=== PATIENT | male | born 1940 | race Caucasian/White ===

== ENCOUNTER → 2016-07-14 | Outpatient (CLI) | payer MEDICARE, BC ==
[2016-07-14 11:57] LABS: Anisocytosis Slight; Basophils % (A) 1 %; CH 32.1; Eosinophils # (A) 0.1 k/uL (0-0.7); Eosinophils % (A) 2 %; HCT 43.1 % (39.0-53.0); HDW 2.66; HGB 13.9 gm/dL (13.0-17.5); Luc % (Auto) 3; Lymphocytes # (A) 1.5 k/uL (1.0-4.8); Lymphocytes % (A) 39 %; MCH 31.5 pg (25.0-35.0); MCHC 32.2 g/dL (31.0-37.0); MCV 97.6 fL (80.0-100.0); Mean Platelet Volume 10.7; Monocytes # (A) 0.4 k/uL (0-1.0); Monocytes % (A) 10 %; Neutrophils # (A) 1.7 k/uL (1.3-7.7); Neutrophils % (A) 46 %; RBC 4.42 m/uL (4.30-5.90); RDW 16.1 % (11.5-15.5); WBC 3.7 k/uL (3.8-10.6); WBC (Perox) 3.62
[2016-07-14 12:35] LABS: Calcium 9.5 mg/dL (8.4-10.2); Magnesium 1.8 mg/dL (1.6-2.3); Phosphorous 4.2 mg/dL (2.5-4.5); Potassium 3.9 mmol/L (3.5-5.1); Uric Acid 8.5 mg/dL (3.5-8.5)
[2016-07-14 12:46] LABS: % Iron Saturation 29.6 % (20-50)
== END | disposition home or self-care (01) ==
LOC: LABWHC1 11:30
PROVIDERS: ATTEND Internal Medicine Nephrology
DX: N18.4 Chronic kidney disease, stage 4 (severe) (principal)
CPT/HCPCS: 36415; 80048; 82306; 82728; 83540; 83550; 83735; 83970; 84100; 84550; 85025

== ENCOUNTER → 2017-03-07 | Outpatient (CLI) | payer MEDICARE, BC ==
[2017-03-07 14:25] LABS: Anisocytosis Slight; Aty Lym Flag Slight; CH 32.9; CHCM 32.9; HCT 31.6 % (39.0-53.0); HDW 2.83; HGB 10.2 gm/dL (13.0-17.5); Large Platelets Flag Slight; MCH 32.6 pg (25.0-35.0); MCHC 32.4 g/dL (31.0-37.0); MCV 100.8 fL (80.0-100.0); Macrocytosis Slight; Mean Platelet Volume 11.7; RBC 3.13 m/uL (4.30-5.90); RDW 18.1 % (11.5-15.5); WBC 3.5 k/uL (3.8-10.6); WBC (Perox) 3.66
[2017-03-07 14:33] LABS: Appearance,Urine Clear (Clear); Bilirubin,Urine Negative (Negative); Glucose,Urine (UA) Trace (Negative); Ketones,Urine Negative (Negative); Leukocyte Esterase,Urine Negative (Negative); Mucus,Urine Rare /hpf; Nitrite,Urine Negative (Negative); Particle Count 541; Protein,Urine 2+ (Negative); RBC,Urine 2 /hpf (0-5); Specific Gravity,Urine 1.012 (1.001-1.035); Squamous Epithelial Cell,Urine 1 /hpf (0-4); UA Billing (MACRO vs. MICRO) MICRO; Urobilinogen,Urine <2.0 mg/dL (<2.0); WBC,Urine 1 /hpf (0-5)
[2017-03-07 14:41] LABS: Calcium 8.9 mg/dL (8.4-10.2); Magnesium 1.7 mg/dL (1.6-2.3); Phosphorous 3.2 mg/dL (2.5-4.5); Potassium 4.3 mmol/L (3.5-5.1); Uric Acid 8.9 mg/dL (3.5-8.5)
[2017-03-07 18:01] LABS: Add Differential Manual Differential
[2017-03-07 18:04] LABS: Manual Review Performed; Nucleated Red Blood Cells 0 /100 WBC (0-0); Polychromasia Present; Total Cells Counted 100
[2017-03-07 19:36] LABS: Iron Saturation 44.39 (15.00-50.00)
== END | disposition home or self-care (01) ==
LOC: LABWHC1 13:32
PROVIDERS: ATTEND Internal Medicine Nephrology
DX: E55.9 Vitamin D deficiency, unspecified (principal); E21.3 Hyperparathyroidism, unspecified; M10.9 Gout, unspecified; N39.0 Urinary tract infection, site not specified; D63.1 Anemia in chronic kidney disease; N18.4 Chronic kidney disease, stage 4 (severe)
CPT/HCPCS: 36415; 80048; 81001; 82306; 82728; 83540; 83550; 83735; 83970; 84100; 84550; 85025

== ENCOUNTER → 2017-06-28 | Outpatient (CLI) | payer MEDICARE, BC ==
[2017-06-28 11:57] LABS: Anisocytosis Slight; HCT 29.5 % (39.0-53.0); Hypochromasia Moderate; MCH 31.6 pg (25.0-35.0); MCHC 30.7 g/dL (31.0-37.0); Macrocytosis Moderate; Mean Platelet Volume 11.6; Platelet Count 115 k/uL (150-450); RBC 2.86 m/uL (4.30-5.90); RDW 18.1 % (11.5-15.5); WBC 4.1 k/uL (3.8-10.6)
[2017-06-28 11:58] LABS: Prothrombin Time 51.2 sec (9.0-12.0)
[2017-06-28 12:49] LABS: Albumin 3.2 g/dL (3.5-5.0); Calcium 9.7 mg/dL (8.4-10.2); Potassium 3.9 mmol/L (3.5-5.1); Total Bilirubin 0.6 mg/dL (0.2-1.3); Total Protein 7.6 g/dL (6.3-8.2)
[2017-06-28 13:15] LABS: Eosinophils # (M) 0.12 k/uL (0-0.7); Lymphocytes # (M) 1.35 k/uL (1.0-4.8); Monocytes # (M) 0.16 k/uL (0-1.0); Neutrophils # (M) 2.46 k/uL (1.3-7.7); Neutrophils % (M) 60 %; Nucleated Red Blood Cells 0 /100 WBC (0-0); Total Cells Counted 100
[2017-06-28 13:16] LABS: Large Platelets Present
[2017-06-28 13:25] LABS: INR 5.6 (<1.2)
== END | disposition home or self-care (01) ==
LOC: LABWHC1 10:53
PROVIDERS: ATTEND Internal Medicine
DX: R06.02 Shortness of breath (principal); I50.9 Heart failure, unspecified; N19 Unspecified kidney failure; Z51.81 Encounter for therapeutic drug level monitoring; Z79.01 Long term (current) use of anticoagulants
CPT/HCPCS: 36415; 80053; 83880; 85025; 85610; 99214

== ENCOUNTER → 2017-07-02 | Outpatient (CLI) | payer MEDICARE, BC ==
--- NOTE | 2017-07-02 13:29 | CT ---
EXAMINATION TYPE: CT chest wo con DATE OF EXAM: 07/02/2017 COMPARISON: 01/16/2016 low-dose CT HISTORY: Increased shortness of breath CT DLP: 755 mGycm, Automated exposure control for dose reduction was used. CONTRAST: None TECHNIQUE: Axial images were obtained at 1 mm thick sections at 10 mm intervals. This will limit po rtions of the examination which may not be visualized within the [id number]. Images were obtained in the prone and supine views. FINDINGS: Portion of the thyroid visualized is normal. No suspicious lung nodules or focal infiltrat es are present. There are multiple scattered enlarged pretracheal lymph nodes measuring 1.0 cm and 1.4 cm in diamete r. Additional shotty lymphadenopathy is present. The ascending aorta diameter at the level of the ozzie n pulmonary artery is 3.9 cm. The main pulmonary artery diameter at the bifurcation is 3.9 cm. Vascu lar calcification is within the aorta. Coronary artery calcification is present. Emphysematous changes are present. Limited CT sections are obtained through the upper abdomen. Abdomen is essentially unremarkable. IMPRESSIONS: 1. Scattered enlarged mediastinal lymph nodes, present previously and may be slightly progressive.
== END | disposition home or self-care (01) ==
LOC: RADCTMAIN 12:08
PROVIDERS: ATTEND Internal Medicine
DX: R59.1 Generalized enlarged lymph nodes (principal)
CPT/HCPCS: 71250

== ENCOUNTER → 2017-07-31 | Outpatient (CLI) | payer MEDICARE, BC ==
[2017-07-31 14:34] LABS: Anisocytosis Slight; HCT 26.9 % (39.0-53.0); HGB 8.2 gm/dL (13.0-17.5); Hypochromasia Moderate; MCH 30.8 pg (25.0-35.0); MCHC 30.4 g/dL (31.0-37.0); MCV 101.6 fL (80.0-100.0); Macrocytosis Moderate; Mean Platelet Volume 12.2; Platelet Count 82 k/uL (150-450); RBC 2.65 m/uL (4.30-5.90); RDW 19.2 % (11.5-15.5); WBC 3.3 k/uL (3.8-10.6)
[2017-07-31 14:42] LABS: Appearance,Urine Clear (Clear); Bacteria,Urine Rare /hpf; Bilirubin,Urine Negative (Negative); Blood,Urine Negative (Negative); Color,Urine Yellow; Glucose,Urine (UA) Trace (Negative); Ketones,Urine Negative (Negative); Leukocyte Esterase,Urine Negative (Negative); Mucus,Urine Rare /hpf; Nitrite,Urine Negative (Negative); PH, Urine 7.5 (5.0-8.0); Protein,Urine 2+ (Negative); RBC,Urine 1 /hpf (0-5); Specific Gravity,Urine 1.011 (1.001-1.035); Squamous Epithelial Cell,Urine 1 /hpf (0-4); Urobilinogen,Urine <2.0 mg/dL (<2.0); WBC,Urine <1 /hpf (0-5)
[2017-07-31 14:50] LABS: Phosphorus 3.6 mg/dL (2.5-4.5); Potassium 4.5 mmol/L (3.5-5.1); Uric Acid 6.8 mg/dL (3.5-8.5)
[2017-07-31 14:53] LABS: Creatinine,Urine Random 77.5 mg/dL
[2017-07-31 15:09] LABS: Lymphocytes # (M) 1.39 k/uL (1.0-4.8); Monocytes # (M) 0.23 k/uL (0-1.0); Neutrophils # (M) 1.58 k/uL (1.3-7.7); Neutrophils % (M) 48 %; Nucleated Red Blood Cells 0 /100 WBC (0-0); Polychromasia Present; Total Cells Counted 100
[2017-07-31 18:53] LABS: Vitamin D 25 Hydroxy 54.2 ng/mL (30.0-100.0)
[2017-07-31 18:56] LABS: Iron Saturation 10.57 (15.00-50.00)
== END | disposition home or self-care (01) ==
LOC: LABWHC1 13:40
PROVIDERS: ATTEND Internal Medicine Nephrology
DX: D64.9 Anemia, unspecified (principal); E55.9 Vitamin D deficiency, unspecified; E21.3 Hyperparathyroidism, unspecified; M10.9 Gout, unspecified; N39.0 Urinary tract infection, site not specified; N18.4 Chronic kidney disease, stage 4 (severe); R80.9 Proteinuria, unspecified
CPT/HCPCS: 36415; 80048; 81001; 82306; 82570; 82728; 83540; 83550; 83735; 83970; 84100; 84156; 84550; 85025

== ENCOUNTER → 2017-11-13 | Outpatient (CLI) | payer MEDICARE, BC ==
[2017-11-13 16:02] LABS: Appearance,Urine Cloudy (Clear); Bilirubin,Urine Negative (Negative); Blood,Urine Negative (Negative); Color,Urine Yellow; Glucose,Urine (UA) Negative (Negative); Ketones,Urine Negative (Negative); Leukocyte Esterase,Urine Large (Negative); Mucus,Urine Rare /hpf; Nitrite,Urine Negative (Negative); Protein,Urine 2+ (Negative); RBC,Urine 2 /hpf (0-5); Specific Gravity,Urine 1.012 (1.001-1.035); Squamous Epithelial Cell,Urine 1 /hpf (0-4); Urobilinogen,Urine <2.0 mg/dL (<2.0); WBC,Urine 157 /hpf (0-5)
[2017-11-13 16:11] LABS: Creatinine,Urine Random 67.7 mg/dL
[2017-11-13 16:15] LABS: Calcium 9.4 mg/dL (8.4-10.2); Magnesium 1.8 mg/dL (1.6-2.3); Phosphorus 4.4 mg/dL (2.5-4.5); Potassium 4.2 mmol/L (3.5-5.1); Uric Acid 6.4 mg/dL (3.5-8.5)
[2017-11-13 16:24] LABS: Anisocytosis Slight; HCT 24.8 % (39.0-53.0); HGB 7.9 gm/dL (13.0-17.5); Hypochromasia Moderate; MCH 32.4 pg (25.0-35.0); MCHC 31.6 g/dL (31.0-37.0); MCV 102.3 fL (80.0-100.0); Macrocytosis Moderate; Mean Platelet Volume 11.6; RBC 2.43 m/uL (4.30-5.90); RDW 19.4 % (11.5-15.5); WBC 2.7 k/uL (3.8-10.6)
[2017-11-13 16:28] LABS: Platelet Count 95 k/uL (150-450)
[2017-11-13 16:51] LABS: Eosinophils # (M) 0.11 k/uL (0-0.7); Lymphocytes # (M) 1.13 k/uL (1.0-4.8); Monocytes # (M) 0.08 k/uL (0-1.0); Neutrophils # (M) 1.38 k/uL (1.3-7.7); Neutrophils % (M) 51 %; Nucleated Red Blood Cells 0 /100 WBC (0-0); Total Cells Counted 100
[2017-11-13 16:52] LABS: Poikilocytosis (M) Present
[2017-11-14 00:36] LABS: Vitamin D 25 Hydroxy 61.7 ng/mL (30.0-100.0)
[2017-11-14 00:50] LABS: Iron Saturation 23.04 (15.00-50.00)
[2017-11-14 00:59] LABS: Parathyroid Hormone Intact 18.1 pg/mL (14.0-72.0)
== END | disposition home or self-care (01) ==
LOC: LABWHC1 14:39
PROVIDERS: ATTEND Internal Medicine Nephrology
DX: N18.4 Chronic kidney disease, stage 4 (severe) (principal); D64.9 Anemia, unspecified; E55.9 Vitamin D deficiency, unspecified; N25.81 Secondary hyperparathyroidism of renal origin; M10.9 Gout, unspecified; N39.0 Urinary tract infection, site not specified
CPT/HCPCS: 36415; 80048; 81001; 82306; 82570; 82728; 83540; 83550; 83735; 83970; 84100; 84156; 84550; 85025

== ENCOUNTER → 2018-04-03 | Outpatient (CLI) | payer MEDICARE, BC ==
[2018-04-03 16:34] LABS: Appearance,Urine Clear (Clear); Bacteria,Urine Rare /hpf; Bilirubin,Urine Negative (Negative); Blood,Urine Negative (Negative); Color,Urine Yellow; Glucose,Urine (UA) Negative (Negative); Ketones,Urine Negative (Negative); Leukocyte Esterase,Urine Negative (Negative); Nitrite,Urine Negative (Negative); Protein,Urine 1+ (Negative); RBC,Urine <1 /hpf (0-5); Specific Gravity,Urine 1.011 (1.001-1.035); Squamous Epithelial Cell,Urine <1 /hpf (0-4); Urobilinogen,Urine <2.0 mg/dL (<2.0); WBC,Urine <1 /hpf (0-5)
[2018-04-03 16:48] LABS: Calcium 10.1 mg/dL (8.4-10.2); Magnesium 1.4 mg/dL (1.6-2.3); Phosphorus 3.9 mg/dL (2.5-4.5); Uric Acid 11.6 mg/dL (3.5-8.5)
[2018-04-03 17:51] LABS: Anisocytosis Slight; Basophils % (A) 1 %; Eosinophils # (A) 0.1 k/uL (0-0.7); Eosinophils % (A) 3 %; Hypochromasia Marked; Lymphocytes # (A) 1.1 k/uL (1.0-4.8); Lymphocytes % (A) 34 %; MCH 31.3 pg (25.0-35.0); MCV 97.9 fL (80.0-100.0); Macrocytosis Slight; Mean Platelet Volume 13.6; Monocytes # (A) 0.3 k/uL (0-1.0); Monocytes % (A) 8 %; Neutrophils # (A) 1.7 k/uL (1.3-7.7); Neutrophils % (A) 52 %; Platelet Count 63 k/uL (150-450); RBC 2.86 m/uL (4.30-5.90); WBC 3.3 k/uL (3.8-10.6)
[2018-04-04 02:05] LABS: Parathyroid Hormone Intact 16.1 pg/mL (14.0-72.0)
[2018-04-04 02:42] LABS: Iron Saturation 15.45 (15.00-50.00)
[2018-04-04 02:50] LABS: Vitamin D 25 Hydroxy 58.4 ng/mL (30.0-100.0)
== END ==
LOC: LABWHC1 15:14
PROVIDERS: ATTEND Internal Medicine Nephrology
DX: E55.9 Vitamin D deficiency, unspecified (principal); E21.3 Hyperparathyroidism, unspecified; M10.9 Gout, unspecified; D63.1 Anemia in chronic kidney disease; N39.0 Urinary tract infection, site not specified; N18.4 Chronic kidney disease, stage 4 (severe)
CPT/HCPCS: 36415; 80048; 81001; 82306; 82728; 83540; 83550; 83735; 83970; 84100; 84550; 85025

== ENCOUNTER → 2018-04-18 | Outpatient (CLI) | payer MEDICARE, BC ==
[2018-04-19 02:51] LABS: Anion Gap 11.6 mmol/L (4.00-12.00); Calcium 9.8 mg/dL (8.7-10.3); Carbon Dioxide 21.4 mmol/L (21.6-31.8); Potassium 4.3 mmol/L (3.5-5.5)
== END | disposition home or self-care (01) ==
LOC: LABWHC1 15:39
PROVIDERS: ATTEND Internal Medicine Nephrology
DX: N18.4 Chronic kidney disease, stage 4 (severe) (principal)
CPT/HCPCS: 36415; 80048

== ENCOUNTER 2018-05-11 09:32 | Inpatient (IN) | payer MEDICARE, BC ==
[2018-05-11] MEDS ORDERED: SODIUM CHLORIDE 0.9% 1,000 ML IV STA (09:45)
[2018-05-11] MEDS ORDERED: ONDANSETRON 4 MG/2 ML VIAL IVP STA (09:54)
[2018-05-11] MEDS ORDERED: MORPHINE SULFATE 2 MG/ML SYRINGE IVP ONE (09:54)
[2018-05-11] MEDS ORDERED: PHENAZOPYRIDINE 200 MG TAB PO STA (10:19)
--- NOTE | 2018-05-11 10:22 | ED ---
General Adult HPI - General Chief complaint: Urogenital Stated complaint: UTI Time Seen by Provider: 05/11/18 09:36 Source: patient, RN notes reviewed Mode of arrival: ambulatory Limitations: no limitations - History of Present Illness Initial comments: This a 77-year-old male presents emergency Department with multiple complaints. Primary complaint is dysuria, penile pain. He states that it torres severely when he urinates. He generalized states that he feels weak, run down. He states that he is "dying". Patient does admit that he has chronic severe COPD, CHF, A. fib. Patient states that he has not been taking care of himself. Patient does have family member in the room states that he has been getting him straightened out. Patient has been taking his medications were regular. Patient doesn't that he is on blood thinners and states that he noticed that his stool has been dark. Patient denies any fever or chills. He denies any nausea, vomiting, chest pain or increase in shortness of breath from his normal baseline. - Related Data Home Medications Medication Instructions Recorded Confirmed ALPRAZolam [Xanax] 0.25 mg PO TID PRN 02/07/18 02/07/18 Albuterol Sulfate [Proair Hfa] 1 - 2 puff INHALATION RT-Q6H PRN 02/07/18 Aspirin EC [Ecotrin Low Dose] 81 mg PO DAILY 02/07/18 02/07/18 Atorvastatin [Lipitor] 80 mg PO HS 02/07/18 02/07/18 Budesonide/Formoterol Fumarate 2 puff INHALATION RT-BID PRN 02/07/18 02/07/18 [Symbicort 160-4.5 Mcg Inhaler] Cholecalciferol [Vitamin D3] 1,000 unit PO DAILY 02/07/18 02/07/18 Magnesium Oxide 400 mg PO BID 02/07/18 02/10/18 Omeprazole 20 mg PO DAILY 02/07/18 02/07/18 Tamsulosin [Flomax] 0.4 mg PO DAILY 02/07/18 02/07/18 Previous Rx's Medication Instructions Recorded Insulin Aspart Protam & Aspart 10 unit SQ AC-BID #1 pen 02/11/18 [NovoLOG MIX 70-30 Flexpen] Ipratropium-Albuterol Nebulize 3 ml INHALATION RT-QID ampul.neb 02/11/18 [Duoneb 0.5 mg-3 mg/3 ml Soln] Nitroglycerin Sl Tabs [Nitrostat] 0.4 mg SUBLINGUAL Q5M PRN tab 02/11/18 ALPRAZolam [Xanax] 0.25 mg PO TID 30 Days #90 tab 02/21/18 Amoxic-Pot Clav 875-125Mg 1 each PO Q12HR tab 02/21/18 [Augmentin 875-125] Carvedilol [Coreg*] 25 mg PO BID-W/MEALS tab 02/21/18 Darbepoetin Hans [Aranesp] 60 mcg SQ Q7D #0 syringe 02/21/18 Furosemide [Lasix] 20 mg PO DAILY tab 02/21/18 NIFEdipine XL [Procardia XL] 30 mg PO DAILY tab.er.24 02/21/18 Sodium Bicarbonate Tab 650 mg PO BID tab 02/21/18 Warfarin Sodium [Coumadin] 3 mg PO DAILY #30 tab 02/21/18 Allergies Allergy/AdvReac Type Severity Reaction Status Date / Time No Known Allergies Allergy Verified 05/11/18 09:40 Review of Systems ROS Statement: Those systems with pertinent positive or pertinent negative responses have been documented in the HPI. ROS Other: All systems not noted in ROS Statement are negative. Past Medical History Past Medical History: Heart Failure Additional Past Medical History / Comment(s): emphysema, low hgb Last Myocardial Infarction Date:: 2009 History of Any Multi-Drug Resistant Organisms: VRE Date of last positivie culture/infection: 06/29/16 MDRO Source:: Urine Past Surgical History: Heart Catheterization With Stent Additional Past Surgical History / Comment(s): aortic anuersym repair, left foot toe removal, 4 cardiac stents. Past Anesthesia/Blood Transfusion Reactions: No Reported Reaction Date of Last Stent Placement:: unk Past Psychological History: No Psychological Hx Reported Smoking Status: Former smoker Past Alcohol Use History: Occasional Past Drug Use History: None Reported - Past Family History Mother Additional Family Medical History / Comment(s): brain tumor Father Family Medical History: CVA/TIA General Exam Limitations: no limitations General appearance: alert, in no apparent distress Head exam: Present: atraumatic, normocephalic, normal inspection ENT exam: Present: normal exam, normal oropharynx, mucous membranes moist Neck exam: Present: normal inspection, full ROM. Absent: tenderness, meningismus, lymphadenopathy Respiratory exam: Present: normal lung sounds bilaterally. Absent: respiratory distress, wheezes, rales, rhonchi, stridor Cardiovascular Exam: Present: irregular rhythm, normal heart sounds. Absent: regular rate, normal rhythm, systolic murmur, diastolic murmur, rubs, gallop, clicks GI/Abdominal exam: Present: soft, normal bowel sounds. Absent: distended, tenderness, guarding, rebound, rigid Back exam: Absent: CVA tenderness (R), CVA tenderness (L) Skin exam: Present: warm, dry, intact, normal color. Absent: rash Course Vital Signs 05/11/18 09:34 Temperature 97.6 F Pulse Rate 94 Respiratory 22 Rate Blood Pressure 168/76 O2 Sat by Pulse 93 L Oximetry EKG Findings - EKG Comments: EKG Findings:: EKG performed at 11:30 A. fib with a rate of 84 QRS 110 QT/QTC 382/451 Medical Decision Making - Medical Decision Making 77-year-old male present emergency from for multiple complaints. Patient's found to be urinary tract infection, dehydration worsening renal function. Patient is: hypercoaguable with INR 4.4 on Coumadin. Patient's Hemoccult positive. Patient will be admitted for IV hydration, holding her Coumadin, repeat H&H and started on antibiotics. - Lab Data Result diagrams: 05/11/18 10:16 05/11/18 10:16 Lab Results 05/11/18 05/11/18 05/11/18 Range/Units 10:16 10:16 10:16 WBC 3.8 (3.8-10.6) k/uL RBC 3.07 L (4.30-5.90) m/uL Hgb 8.8 L (13.0-17.5) gm/dL Hct 28.4 L (39.0-53.0) % MCV 92.4 D (80.0-100.0) fL MCH 28.7 (25.0-35.0) pg MCHC 31.0 (31.0-37.0) g/dL RDW 18.3 H (11.5-15.5) % Plt Count 132 L D (150-450) k/uL Neutrophils % (Manual) 70 % Lymphocytes % (Manual) 15 % Monocytes % (Manual) 12 % Eosinophils % (Manual) 3 % Neutrophils # (Manual) 2.66 (1.3-7.7) k/uL Lymphocytes # (Manual) 0.57 L (1.0-4.8) k/uL Monocytes # (Manual) 0.46 (0-1.0) k/uL Eosinophils # (Manual) 0.11 (0-0.7) k/uL Nucleated RBCs 0 (0-0) /100 WBC Manual Slide Review Performed Hypochromasia Marked Anisocytosis Slight PT (9.0-12.0) sec INR (<1.2) APTT (22.0-30.0) sec Sodium 140 (137-145) mmol/L Potassium 4.5 (3.5-5.1) mmol/L Chloride 106 (98-107) mmol/L Carbon Dioxide 22 (22-30) mmol/L Anion Gap 12 mmol/L BUN 63 H (9-20) mg/dL Creatinine 3.71 H (0.66-1.25) mg/dL Est GFR (CKD-EPI)AfAm 17 (>60 ml/min/1.73 sqM) Est GFR (CKD-EPI)NonAf 15 (>60 ml/min/1.73 sqM) Glucose 80 (74-99) mg/dL Plasma Lactic Acid [place] 1.5 (0.7-2.0) mmol/L Calcium 13.3 H* (8.4-10.2) mg/dL Total Bilirubin 0.7 (0.2-1.3) mg/dL AST 41 (17-59) U/L ALT 18 L (21-72) U/L Alkaline Phosphatase 151 H (38-126) U/L Total Protein 8.4 H (6.3-8.2) g/dL Albumin 2.9 L (3.5-5.0) g/dL Lipase 589 H (23-300) U/L Urine Color Urine Appearance (Clear) Urine pH (5.0-8.0) Ur Specific [place] (1.001-1.035) Urine Protein (Negative) Urine Glucose (UA) (Negative) Urine Ketones (Negative) Urine Blood (Negative) Urine Nitrite (Negative) Urine Bilirubin (Negative) Urine Urobilinogen (<2.0) mg/dL Ur Leukocyte Esterase (Negative) Urine RBC (0-5) /hpf Urine WBC (0-5) /hpf Urine WBC Clumps (None) /hpf Ur Squamous Epith Cells (0-4) /hpf Urine Bacteria (None) /hpf Hyaline Casts (0-2) /lpf Stool Occult Blood (Negative) 05/11/18 05/11/18 05/11/18 Range/Units 10:16 10:16 10:29 WBC (3.8-10.6) k/uL RBC (4.30-5.90) m/uL Hgb (13.0-17.5) gm/dL Hct (39.0-53.0) % MCV (80.0-100.0) fL MCH (25.0-35.0) pg MCHC (31.0-37.0) g/dL RDW (11.5-15.5) % Plt Count (150-450) k/uL Neutrophils % (Manual) % Lymphocytes % (Manual) % Monocytes % (Manual) % Eosinophils % (Manual) % Neutrophils # (Manual) (1.3-7.7) k/uL Lymphocytes # (Manual) (1.0-4.8) k/uL Monocytes # (Manual) (0-1.0) k/uL Eosinophils # (Manual) (0-0.7) k/uL Nucleated RBCs (0-0) /100 WBC Manual Slide Review Hypochromasia Anisocytosis PT 43.6 H (9.0-12.0) sec INR 4.8 H (<1.2) APTT 43.3 H (22.0-30.0) sec Sodium (137-145) mmol/L Potassium (3.5-5.1) mmol/L Chloride (98-107) mmol/L Carbon Dioxide (22-30) mmol/L Anion Gap mmol/L BUN (9-20) mg/dL Creatinine (0.66-1.25) mg/dL Est GFR (CKD-EPI)AfAm (>60 ml/min/1.73 sqM) Est GFR (CKD-EPI)NonAf (>60 ml/min/1.73 sqM) Glucose (74-99) mg/dL Plasma Lactic Acid [place] (0.7-2.0) mmol/L Calcium (8.4-10.2) mg/dL Total Bilirubin (0.2-1.3) mg/dL AST (17-59) U/L ALT (21-72) U/L Alkaline Phosphatase (38-126) U/L Total Protein (6.3-8.2) g/dL Albumin (3.5-5.0) g/dL Lipase (23-300) U/L Urine Color Yellow Urine Appearance Cloudy (Clear) Urine pH 6.0 (5.0-8.0) Ur Specific [place] 1.011 (1.001-1.035) Urine Protein 1+ H (Negative) Urine Glucose (UA) Negative (Negative) Urine Ketones Negative (Negative) Urine Blood Trace H (Negative) Urine Nitrite Negative (Negative) Urine Bilirubin Negative (Negative) Urine Urobilinogen <2.0 (<2.0) mg/dL Ur Leukocyte Esterase Large H (Negative) Urine RBC 7 H (0-5) /hpf Urine WBC >182 H (0-5) /hpf Urine WBC Clumps Moderate H (None) /hpf Ur Squamous Epith Cells <1 (0-4) /hpf Urine Bacteria Few H (None) /hpf Hyaline Casts 1 (0-2) /lpf Stool Occult Blood Positive (Negative) Disposition Clinical Impression: Anemia, Acute on chronic renal failure, Dehydration, Urinary tract infection, Hypercalcemia Disposition: ADMITTED IP TO THIS [facility] Condition: Fair Referrals: Chance Zuñiga MD [Primary Care Provider] - 1-2 days
--- NOTE | 2018-05-11 10:48 | XR ---
EXAMINATION TYPE: XR chest 2V DATE OF EXAM: 05/11/2018 HISTORY: Cough/pain. REFERENCE: Previous study dated 02/20/2018. FINDINGS: Lungs are overinflated. Heart size upper limits of normal. There are increased interstitial markings which are chronic. Pleural spaces are clear. IMPRESSION: 1. PLEASE CORRELATE FOR COPD. 2. BORDERLINE CARDIOMEGALY.
[2018-05-11 10:52] LABS: Albumin 2.9 g/dL (3.5-5.0); Potassium 4.5 mmol/L (3.5-5.1); Total Bilirubin 0.7 mg/dL (0.2-1.3); Total Protein 8.4 g/dL (6.3-8.2)
[2018-05-11 10:53] LABS: Anisocytosis Slight; HCT 28.4 % (39.0-53.0); Hypochromasia Marked; MCH 28.7 pg (25.0-35.0); Mean Platelet Volume 10.3; RBC 3.07 m/uL (4.30-5.90); RDW 18.3 % (11.5-15.5); WBC 3.8 k/uL (3.8-10.6)
[2018-05-11 10:55] LABS: Platelet Count 132 k/uL (150-450)
[2018-05-11 10:56] LABS: HGB 8.8 gm/dL (13.0-17.5); INR 4.8 (<1.2); Partial Thromboplastin Time 43.3 sec (22.0-30.0); Prothrombin Time 43.6 sec (9.0-12.0)
[2018-05-11 10:57] LABS: Calcium 13.3 mg/dL (8.4-10.2)
[2018-05-11 11:00] LABS: Appearance,Urine Cloudy (Clear); Bacteria,Urine Few /hpf; Bilirubin,Urine Negative (Negative); Blood,Urine Trace (Negative); Color,Urine Yellow; Glucose,Urine (UA) Negative (Negative); Hyaline Casts,Urine 1 /lpf (0-2); Ketones,Urine Negative (Negative); Leukocyte Esterase,Urine Large (Negative); Nitrite,Urine Negative (Negative); Protein,Urine 1+ (Negative); RBC,Urine 7 /hpf (0-5); Specific Gravity,Urine 1.011 (1.001-1.035); Squamous Epithelial Cell,Urine <1 /hpf (0-4); Urobilinogen,Urine <2.0 mg/dL (<2.0); WBC,Urine >182 /hpf (0-5)
[2018-05-11 11:27] LABS: Eosinophils # (M) 0.11 k/uL (0-0.7); Lymphocytes # (M) 0.57 k/uL (1.0-4.8); Monocytes # (M) 0.46 k/uL (0-1.0); Neutrophils # (M) 2.66 k/uL (1.3-7.7); Neutrophils % (M) 70 %; Nucleated Red Blood Cells 0 /100 WBC (0-0); Total Cells Counted 100
[2018-05-11] MEDS ORDERED: NALOXONE 0.4 MG/ML 1 ML VIAL IV PRN (11:45)
[2018-05-11] MEDS ORDERED: ONDANSETRON 4 MG/2 ML VIAL IVP PRN (11:45)
[2018-05-11] MEDS ORDERED: ACETAMINOPHEN TAB 325 MG TAB PO PRN (11:45)
[2018-05-11] MEDS ORDERED: PANTOPRAZOLE 40 MG/10 ML VIAL IVP STA (11:47)
[2018-05-11 14:38] LABS: MCV 92.4 fL (80.0-100.0)
[2018-05-11] MEDS: IPRATROPIUM-ALBUTEROL 3 ML NEB INHALATION SCH ×3 (14:49→19:05)
[2018-05-11] MEDS: SODIUM CHLORIDE 0.9% 1,000 ML IV SCH (14:49)
[2018-05-11] MEDS: MORPHINE SULFATE 4 MG/ML SYRINGE IV PRN (14:57)
--- NOTE | 2018-05-11 16:01 | P.HPIM ---
History of Present Illness H&P Date: 05/11/18 (Dr. Zuñiga patient) Chief Complaint: Severe pain in his penis, dysuria. History and physical dictated on the phone #[phone]. Medications reviewed and a constellation done. Was holding vitamin D and calcium supplementation, obtaining PTH intact because of his hypercalcemia with a calcium 13, associated with dehydration. Further diagnostic criteria on the dictation. Dr. Zuñiga will follow the patient tomorrow. Past Medical History Past Medical History: Heart Failure, Pneumonia Additional Past Medical History / Comment(s): emphysema, low hgb Last Myocardial Infarction Date:: 2009 History of Any Multi-Drug Resistant Organisms: VRE Date of last positivie culture/infection: 06/29/16 MDRO Source:: Urine Past Surgical History: Heart Catheterization With Stent Additional Past Surgical History / Comment(s): aortic anuersym repair, left foot toe removal, 4 cardiac stents. Past Anesthesia/Blood Transfusion Reactions: No Reported Reaction Date of Last Stent Placement:: unk Past Psychological History: No Psychological Hx Reported Additional Psychological History / Comment(s): sister living with pt, planning to move out 05/14/18. friend gee valladares comes in several times a day for meals and care. has home 02 and nebulizer Smoking Status: Former smoker Past Alcohol Use History: Occasional Additional Past Alcohol Use History / Comment(s): started smoking 1961 and quit 2014 smoked 1 ppd Past Drug Use History: None Reported - Past Family History Mother Additional Family Medical History / Comment(s): brain tumor Father Family Medical History: CVA/TIA Medications and Allergies Home Medications Medication Instructions Recorded Confirmed Type ALPRAZolam [Xanax] 0.25 mg PO TID PRN 02/07/18 02/07/18 History Albuterol Sulfate [Proair Hfa] 1 - 2 puff INHALATION RT-Q6H PRN 02/07/18 History Aspirin EC [Ecotrin Low Dose] 81 mg PO DAILY 02/07/18 02/07/18 History Atorvastatin [Lipitor] 80 mg PO HS 02/07/18 02/07/18 History Budesonide/Formoterol Fumarate 2 puff INHALATION RT-BID PRN 02/07/18 02/07/18 History [Symbicort 160-4.5 Mcg Inhaler] Cholecalciferol [Vitamin D3] 1,000 unit PO DAILY 02/07/18 02/07/18 History Magnesium Oxide 400 mg PO BID 02/07/18 02/10/18 History Omeprazole 20 mg PO DAILY 02/07/18 02/07/18 History Tamsulosin [Flomax] 0.4 mg PO DAILY 02/07/18 02/07/18 History Insulin Aspart Protam & Aspart 10 unit SQ AC-BID #1 pen 02/11/18 Rx [NovoLOG MIX 70-30 Flexpen] Ipratropium-Albuterol Nebulize 3 ml INHALATION RT-QID ampul.neb 02/11/18 Rx [Duoneb 0.5 mg-3 mg/3 ml Soln] Nitroglycerin Sl Tabs [Nitrostat] 0.4 mg SUBLINGUAL Q5M PRN tab 02/11/18 Rx ALPRAZolam [Xanax] 0.25 mg PO TID 30 Days #90 tab 02/21/18 Rx Amoxic-Pot Clav 875-125Mg 1 each PO Q12HR tab 02/21/18 Rx [Augmentin 875-125] Carvedilol [Coreg*] 25 mg PO BID-W/MEALS tab 02/21/18 Rx Darbepoetin Hans [Aranesp] 60 mcg SQ Q7D #0 syringe 02/21/18 Rx Furosemide [Lasix] 20 mg PO DAILY tab 02/21/18 Rx NIFEdipine XL [Procardia XL] 30 mg PO DAILY tab.er.24 02/21/18 Rx Sodium Bicarbonate Tab 650 mg PO BID tab 02/21/18 Rx Warfarin Sodium [Coumadin] 3 mg PO DAILY #30 tab 02/21/18 Rx Allergies Allergy/AdvReac Type Severity Reaction Status Date / Time No Known Allergies Allergy Verified 05/11/18 14:48 Physical Exam Vitals: Vital Signs Temp Pulse Pulse Resp BP BP Pulse Ox 05/11/18 14:53 97.0 F L 91 18 138/69 94 L 05/11/18 14:49 84 05/11/18 14:00 97.7 F 94 18 141/67 98 05/11/18 12:30 89 18 163/66 95 05/11/18 11:30 81 22 151/67 100 05/11/18 11:00 78 20 154/70 100 05/11/18 09:34 97.6 F 94 22 168/76 93 L Intake and Output 05/11/18 05/11/18 05/11/18 06:59 14:59 22:59 Output Total 200 Balance -200 Output: Urine 200 Straight 200 Other: Voiding Method Diaper # Voids 0 Weight 68.039 kg Results CBC & Chem 7: 05/11/18 10:16 05/11/18 10:16 Labs: Abnormal Lab Results - Last 24 Hours (Table) 05/11/18 05/11/18 05/11/18 Range/Units 10:16 10:16 10:16 RBC 3.07 L (4.30-5.90) m/uL Hgb 8.8 L (13.0-17.5) gm/dL Hct 28.4 L (39.0-53.0) % RDW 18.3 H (11.5-15.5) % Plt Count 132 L D (150-450) k/uL Lymphocytes # (Manual) 0.57 L (1.0-4.8) k/uL PT 43.6 H (9.0-12.0) sec INR 4.8 H (<1.2) APTT 43.3 H (22.0-30.0) sec BUN 63 H (9-20) mg/dL Creatinine 3.71 H (0.66-1.25) mg/dL Calcium 13.3 H* (8.4-10.2) mg/dL ALT 18 L (21-72) U/L Alkaline Phosphatase 151 H (38-126) U/L Total Protein 8.4 H (6.3-8.2) g/dL Albumin 2.9 L (3.5-5.0) g/dL Lipase 589 H (23-300) U/L Urine Protein (Negative) Urine Blood (Negative) Ur Leukocyte Esterase (Negative) Urine RBC (0-5) /hpf Urine WBC (0-5) /hpf Urine WBC Clumps (None) /hpf Urine Bacteria (None) /hpf 05/11/18 Range/Units 10:29 RBC (4.30-5.90) m/uL Hgb (13.0-17.5) gm/dL Hct (39.0-53.0) % RDW (11.5-15.5) % Plt Count (150-450) k/uL Lymphocytes # (Manual) (1.0-4.8) k/uL PT (9.0-12.0) sec INR (<1.2) APTT (22.0-30.0) sec BUN (9-20) mg/dL Creatinine (0.66-1.25) mg/dL Calcium (8.4-10.2) mg/dL ALT (21-72) U/L Alkaline Phosphatase (38-126) U/L Total Protein (6.3-8.2) g/dL Albumin (3.5-5.0) g/dL Lipase (23-300) U/L Urine Protein 1+ H (Negative) Urine Blood Trace H (Negative) Ur Leukocyte Esterase Large H (Negative) Urine RBC 7 H (0-5) /hpf Urine WBC >182 H (0-5) /hpf Urine WBC Clumps Moderate H (None) /hpf Urine Bacteria Few H (None) /hpf Thrombosis Risk Factor Assmnt - Choose All That Apply Each Factor Represents 1 point: Abnormal pulmonary function (COPD) Each Risk Factor Represents 3 Points: Age 75 years or older Thrombosis Risk Factor Assessment Total Risk Factor Score: 4 Thrombosis Risk Factor Assessment Level: Moderate Risk
[2018-05-11] MEDS: HYDROcodone/APAP 5-325MG 1 EACH TAB PO PRN ×2 (16:54→20:57)
[2018-05-11] MEDS: ALPRAZolam 0.25 MG TAB PO PRN (17:10)
[2018-05-11 17:12] LABS: Glucose,Whole Blood 79 mg/dL (75-99)
[2018-05-11] MEDS: INSULIN ASPART 100 UNIT/ML 1 ML 10 ML VIAL SQ SCH ×2 (17:15→20:47)
[2018-05-11] MEDS: INSULN ASP PRT/INSULIN ASPART 100 UNIT/ML 10 ML VIAL SQ SCH (17:15)
--- NOTE | 2018-05-11 17:38 | HP ---
HISTORY AND PHYSICAL DATE OF SERVICE: 05/11/2018 DATA: This is a 77-year-old white male, , his date of 1940. He is in room 405 bed 1. ATTENDING PHYSICIAN: Dr. Zuñiga I am dictating the History and Physical in the temporary absence of Dr. Zuñiga by Dr. Munguia. NEW DATA: The patient is a FULL CODE. His height is 5 feet 9 inches, weight 68.039 kg, BSA 1.83 m2, BMI 22.2 kg/m2. ALLERGIES: His allergy is unknown. CHIEF COMPLAINT: He has underlying chief complaint when he presented to the emergency room to Dr. Sarabia and the patient stated that he has severe pain in his penis and could not be tolerated and associated with the dysuria and incontinent. HISTORY OF PRESENT ILLNESS: A 77-year-old white male presented to the ER with multiple complaints including dysuria and penile pain and burning with urination, which is underlying severe dysuria. He had also generalized weakness and run down and he was feeling that he is dying. The patient has underlying also chronic atrial fibrillation and advanced COPD as well as he is on anticoagulant and found in the ER that his ProTime and INR has been prolonged and the stool Hemoccult was positive per Dr. Sarabia. He denied any fever or chills and no nausea, no vomiting and he has no chest pain or shortness of breath at this time. The patient had stated that his previous admission in January and he had pneumonia at that time. Review of his medication. He was on Xanax 0.25 mg t.i.d. and albuterol inhalation 1-2 puffs every 6 hours. He is on enteric-coated aspirin 81. He is on atorvastatin 80 mg once a day. He is also on budesonide formoterol which is Symbicort 160/4.5 mcg inhaler. He takes 2 puffs twice a day. He is on vitamin D 1000 mg daily and magnesium 400 mg b.i.d. and also omeprazole 20 mg daily and Tamsulosin 0.4 mg daily with the underlying prostatic hypertrophy. The patient also is diabetic and he is on insulin and insulin mix 70/30 FlexPen. He take 10 units a.c. meals twice a day. He is also on ipratropium/albuterol 3 mL DuoNeb inhalation and he takes inhalation 4 times a day. He is on nitroglycerin sublingual 0.4 mg as well as alprazolam. We discussed that and Xanax and he is as mentioned above. He was also on amoxicillin and clavulanic acid, which is Augmentin 875 mg/125. He takes 1 tablet twice a day. He is on carvedilol 25 mg twice a day and he is on for chronic kidney disease. Aranesp and 60 mg subcutaneously for 7 days. He was on furosemide 20 mg daily as well as nifedipine XL 30 mg once a day. He is on sodium bicarb 650 twice a day and warfarin sodium 3 mg daily. He has unknown allergy. PAST MEDICAL HISTORY: He had last history of admission on February 21, 2018, and at that time he was seen by Pulmonary, Dr. Jack and seen by Dr. Aden Palomino for anemia and he was seen by Dr. Hetal Villanueva the supervisor furnace room as well as seen by Dr. Zuñiga and Dr. Trish Benton, realtime reporter as well. The past medical history that he has, he had a history of acute respiratory failure. He had acute congestive cardiac failure secondary to diastolic dysfunction and he had chronic atrial fibrillation. He had acute on the chronic renal failure. He has also cardiorenal syndrome and acute exacerbation of COPD, hospital acquired pneumonia and anticoagulation with the treatment as well as diabetes mellitus and he had history of myelodysplastic syndrome with anemia and mild leukocytopenia. Debility. He has a caregiver. He has no children and he was . REVIEW OF THE SYSTEM: Neuropsychiatry was negative. His renal function was uncontrolled with the underlying chronic kidney disease. Since Dr. Jimenez has been taking care of him, which is chronic before he retired. Currently Dr. Rodriguez and Dr. Myrick were taking care of him. He has diabetes as well and he has the myelodysplastic syndrome with thrombocytopenia. On the respiratory, he is today, no complaint. No shortness of breath. No cough or expectoration. However, his caregiver said that when he coughs he has some tinged blood in the sputum as well as the stool has blood, probably with the associated Coumadin, the anticoagulation. On the cardiac, he denied any recent congestive heart failure. On the GI, no hematemesis, however, he had some hematochezia. The musculoskeletal he has weakness and difficulty of walking. On the endocrine, he is diabetic with a history of atrial fibrillation. The rest of 14 point was negative and currently he had past history of emphysema, anemia secondary to renal disease, history of VRE in the past, history of heart catheterization with stent and history of aortic aneurysm repair, left foot toe removal and 4 cardiac stents. FAMILY HISTORY: Mother has a brain tumor and father has CVA. CURRENT PHYSICAL EXAM: The patient is conscious, alert, oriented. He has vital signs at presentation in the ER, temperature 97.7, pulse is 94, respiratory rate 18, blood pressure 141/67 with the saturation was 98. His HEENT: The head was normocephalic, atraumatic. Pupil is reactive and conjunctivae were pale. Oropharynx, he has natural teeth upper and lower. His tongue is red beefy in color and glazed. current neck was supple. No JVD. No thyromegaly. No lymphadenopathy. The chest was increased anteroposterior diameter with emphysematous. Lung was clear. No wheezes, no rhonchi. The heart: PMI in the 5th intercostal space outside midclavicular line and with the cardiomegaly. The abdomen was soft, nontender, positive bowel sounds and he has wearing pull-ups and he has incontinence with dripping of the penis and he said that he had pain in the penis and at the end of the penis, probably associated with the prostate as well. The extremities: No edema. Positive pulses. However, he had a stasis dermatitis from also associated Coumadin. Neurological examination: He is moving 4 extremities. The toenail, he had onychomycosis bilateral from 1-5. ASSESSMENT: 1. Severe pain in the pelvic area with the root of the penis as well as dripping with the underlying urinary tract infection and with the underlying urinary tract infection with the white cells is 182 and leukocyte esterase large and clumps of WBCs and however, nitrite is negative. 2. The stool was positive for Hemoccult. 3. Hypercalcemia with the calcium 13.3. 4. Mild dehydration. His serum lipase is elevated to 589 with the possibility of lower abdominal pathology could be not indicated at this time. 5. His plasma lactic acid was normal and his creatinine 3.71 and BUN is 63 and with the underlying estimated glomerular filtration rate for non- is stage IV is 15. 6. He had as well a prolonged PT and with the ProTime is 43.6, and the prolongation of the INR. His white count is 3.8 with a hemoglobin 8.8 and hematocrit 28.4 with the platelet count 132, with the underlying history of myelodysplastic syndrome. PLAN: We continued with hypercalcemia, the hydration and Lasix. We will hold any vitamin D or calcium at this time. Meanwhile repeat the labs tomorrow including the hemoglobin and hematocrit and the patient probably for further CT scan without contrast of the pelvis will be recommended. However, the patient will be seen tomorrow by Dr. Zuñiga and he has known him for many years. He may have checked other issues as well. Meanwhile, the patient continued to be on Rocephin IV piggyback until the culture available. Further consultation with other physicians will be noted if needed and Dr. Zuñiga will be resuming according to his previous record. The patient has no evidence now of congestive heart failure. He has underlying stage IV kidney disease with the possibility of acute on top of chronic of acute renal failure. However, I could not bring his creatinine. We are trying to obtain the creatinine in the past and if the patient also had underlying glazed tongue and possibility of vitamin B12 deficiency was considered as well. MMODL / IJN: [id number] /
[2018-05-11] MEDS: CARVEDILOL 12.5 MG TAB PO SCH (18:11)
[2018-05-11 18:24] LABS: Creatine Kinase <20 U/L (55-170)
[2018-05-11 18:35] LABS: Creatine Kinase MB 1.6 ng/mL (0.0-2.4)
[2018-05-11 18:48] LABS: Troponin I 0.063 ng/mL (0.000-0.034)
[2018-05-11 20:45] LABS: Glucose,Whole Blood 80 mg/dL (75-99)
[2018-05-11] MEDS: SODIUM BICARBONATE TAB 650 MG TAB PO SCH (20:49)
[2018-05-11] MEDS: PANTOPRAZOLE 40 MG/10 ML VIAL IVP SCH (20:52)
[2018-05-12 01:06] LABS: Troponin I 0.737 ng/mL (0.000-0.034)
[2018-05-12] MEDS: MORPHINE SULFATE 4 MG/ML SYRINGE IV PRN (03:17)
[2018-05-12] MEDS: SODIUM CHLORIDE 0.9% 1,000 ML IV SCH ×3 (03:20→21:47)
[2018-05-12 04:10] LABS: Glucose,Whole Blood 72 mg/dL (75-99)
[2018-05-12] MEDS: HYDROcodone/APAP 5-325MG 1 EACH TAB PO PRN ×2 (04:31→10:31)
[2018-05-12] MEDS ORDERED: FUROSEMIDE 10 MG/ML 2 ML VIAL IV STA (07:04)
[2018-05-12 07:13] LABS: Anisocytosis Slight; HCT 23.7 % (39.0-53.0); HGB 7.4 gm/dL (13.0-17.5); Hypochromasia Marked; MCHC 31.5 g/dL (31.0-37.0); MCV 95.3 fL (80.0-100.0); Macrocytosis Slight; Platelet Count 114 k/uL (150-450); RBC 2.48 m/uL (4.30-5.90); RDW 18.7 % (11.5-15.5); WBC 4.8 k/uL (3.8-10.6)
--- NOTE | 2018-05-12 07:15 | P.CRDCN ---
History of Present Illness Consult date: 05/12/18 History of present illness: This is a 77-year-old gentleman with history of hypertension, hyperlipidemia, diabetes, COPD, coronary artery disease with prior stent placement and also chronic kidney disease who comes here to the hospital with multiple complaints including burning on urination, weakness, and also dark stools. He was found to be Hemoccult positive. His creatinine was high and it was felt that patient was dehydrated. He was also found to have urinary tract infection and is being treated. Yesterday patient had some discomfort around the neck which is different than the pain he ever had. His EKG did not reveal any acute changes. However, following cardiac enzymes showed elevation of the troponin. After that 1 episode of neck pain. Patient hasn't had any recurrence of chest pain. His INR is high at 4.4 on admission. Patient also has severe aortic stenosis. This morning patient is complaining of shortness of breath. He claims that this is different than the his usual COPD, shortness of breath. Clinically doesn't have any JVD or significant peripheral edema. His blood pressure has been running high. We're going to get a chest x-ray. Patient is being treated with one dose of Lasix and also Nitropaste. Patient is being transferred to telemetry unit. Patient prognosis is guarded. Review of Systems As per the chart Past Medical History Past Medical History: Coronary Artery Disease (CAD), Heart Failure, COPD, Pneumonia Additional Past Medical History / Comment(s): emphysema, low hgb , aortic stenosis Last Myocardial Infarction Date:: 2009 History of Any Multi-Drug Resistant Organisms: VRE Date of last positivie culture/infection: 06/29/16 MDRO Source:: Urine Past Surgical History: Heart Catheterization With Stent Additional Past Surgical History / Comment(s): aortic anuersym repair, left foot toe removal, 4 cardiac stents. Past Anesthesia/Blood Transfusion Reactions: No Reported Reaction Date of Last Stent Placement:: unk Past Psychological History: No Psychological Hx Reported Additional Psychological History / Comment(s): sister living with pt, planning to move out 05/14/18. friend gee valladares comes in several times a day for meals and care. has home 02 and nebulizer Smoking Status: Former smoker Past Alcohol Use History: Occasional Additional Past Alcohol Use History / Comment(s): started smoking 1961 and quit 2015 smoked 1 ppd Past Drug Use History: None Reported - Past Family History Mother Additional Family Medical History / Comment(s): brain tumor Father Family Medical History: CVA/TIA Medications and Allergies Home Medications Medication Instructions Recorded Confirmed Type ALPRAZolam [Xanax] 0.25 mg PO TID PRN 02/07/18 05/11/18 History Atorvastatin [Lipitor] 80 mg PO HS 02/07/18 05/11/18 History Magnesium Oxide 800 mg PO DAILY 02/07/18 05/11/18 History Omeprazole 20 mg PO DAILY 02/07/18 05/11/18 History Tamsulosin [Flomax] 0.4 mg PO DAILY 02/07/18 05/11/18 History Insulin Aspart Protam & Aspart 10 unit SQ AC-BID #1 pen 02/11/18 05/11/18 Rx [NovoLOG MIX 70-30 Flexpen] NIFEdipine XL [Procardia XL] 30 mg PO DAILY tab.er.24 02/21/18 05/11/18 Rx Furosemide [Lasix] 40 mg PO DAILY 05/11/18 05/11/18 History Potassium Chloride [Klor-Con 20] 20 meq PO DAILY 05/11/18 05/11/18 History Allergies Allergy/AdvReac Type Severity Reaction Status Date / Time No Known Allergies Allergy Verified 05/11/18 17:01 Physical Exam Vitals: Vital Signs Temp Pulse Pulse Resp BP BP Pulse Ox 05/11/18 22:42 97.4 F L 77 20 140/66 94 L 05/11/18 19:14 88 05/11/18 19:05 86 05/11/18 15:00 86 05/11/18 14:53 97.0 F L 91 18 138/69 94 L 05/11/18 14:49 84 05/11/18 14:00 97.7 F 94 18 141/67 98 05/11/18 12:30 89 18 163/66 95 05/11/18 11:30 81 22 151/67 100 05/11/18 11:00 78 20 154/70 100 05/11/18 09:34 97.6 F 94 22 168/76 93 L Intake and Output 05/11/18 05/12/18 05/12/18 22:59 06:59 14:59 Other: Voiding Method Incontinent Incontinent # Voids 1 3 Weight 68.5 kg GENERAL EXAM: Patient is alert and oriented and doesn't appear to be in mild-to- moderate distress HEENT: Normocephalic. Normal reaction of pupils, equal size, normal range of extraocular motion. No erythema or exudates in the throat. NECK: No masses, no nuchal rigidity. CHEST: No chest wall deformity. LUNGS: Diminished air exchange. No clear-cut were also rhonchi HEART: S1 and S2 normal with no audible mumurs or gallops. Regular rhythm, femorals equal on both sides.. ABDOMEN: No hepatosplenomegaly, normal bowel sounds, no guarding or rigidity. SKIN: No rashes CENTRAL NERVOUS SYSTEM: No focal deficits. EXTREMITIES: No cyanosis, clubbing or edema. Results 05/11/18 10:16 05/11/18 10:16 Cardiac Enzymes 05/11/18 05/11/18 05/12/18 Range/Units 10:16 17:53 00:00 AST 41 (17-59) U/L CK-MB (CK-2) 1.6 5.0 H (0.0-2.4) ng/mL Troponin I 0.063 H* 0.737 H* (0.000-0.034) ng/mL Coagulation 05/11/18 Range/Units 10:16 PT 43.6 H (9.0-12.0) sec APTT 43.3 H (22.0-30.0) sec CBC 05/11/18 Range/Units 10:16 WBC 3.8 (3.8-10.6) k/uL RBC 3.07 L (4.30-5.90) m/uL Hgb 8.8 L (13.0-17.5) gm/dL Hct 28.4 L (39.0-53.0) % Plt Count 132 L D (150-450) k/uL Comprehensive Metabolic Panel 05/11/18 Range/Units 10:16 Sodium 140 (137-145) mmol/L Potassium 4.5 (3.5-5.1) mmol/L Chloride 106 (98-107) mmol/L Carbon Dioxide 22 (22-30) mmol/L BUN 63 H (9-20) mg/dL Creatinine 3.71 H (0.66-1.25) mg/dL Glucose 80 (74-99) mg/dL Calcium 13.3 H* (8.4-10.2) mg/dL AST 41 (17-59) U/L ALT 18 L (21-72) U/L Alkaline Phosphatase 151 H (38-126) U/L Total Protein 8.4 H (6.3-8.2) g/dL Albumin 2.9 L (3.5-5.0) g/dL Current Medications Generic Name Dose Route Start Last Admin Trade Name Freq PRN Reason Stop Dose Admin Acetaminophen 650 mg 05/11/18 11:45 Tylenol Tab PO Q6HR PRN Mild Pain or Fever > 100.5 Hydrocodone Bitart/Acetaminophen 1 each 05/11/18 11:45 05/12/18 04:31 Basye 5-325 PO 1 each Q4HR PRN Administration Moderate Pain Albuterol/Ipratropium 3 ml 05/11/18 12:00 05/11/18 19:05 Duoneb 0.5 Mg-3 Mg/3 Ml Soln INHALATION 3 ml RT-QID FRANCISCO Administration Alprazolam 0.25 mg 05/11/18 11:47 05/11/18 17:10 Xanax PO 0.25 mg TID PRN Administration Anxiety Atorvastatin Calcium 80 mg 05/12/18 21:00 Lipitor PO HS FRANCISCO Carvedilol 25 mg 05/11/18 17:30 05/11/18 18:11 Coreg PO 25 mg BID-W/MEALS FRANCISCO Administration Furosemide 20 mg 05/12/18 09:00 Lasix PO DAILY [facility] Sodium Chloride 1,000 mls @ 75 mls/hr 05/11/18 11:45 05/12/18 03:20 Saline 0.9% IV 75 mls/hr .[id number] FRANCISCO Administration Insulin Aspart 10 unit 05/11/18 17:30 05/11/18 17:15 Novolog Mix 70-30 Vial SQ Not Given AC-BID FRANCISCO Insulin Aspart 0 unit 05/11/18 17:30 05/11/18 20:47 Novolog SQ Not Given ACHS [facility] Protocol Morphine Sulfate 4 mg 05/11/18 11:45 05/12/18 03:17 Morphine Sulfate (Inj) IV 4 mg Q4HR PRN Administration Severe Pain Naloxone HCl 0.2 mg 05/11/18 11:45 Narcan IV Q2M PRN Opioid Reversal Nifedipine 30 mg 05/12/18 09:00 Procardia Xl PO DAILY FRANCISCO Ondansetron HCl 4 mg 05/11/18 11:45 Zofran IVP Q8HR PRN Nausea And Vomiting Pantoprazole Sodium 40 mg 05/11/18 21:00 05/11/18 20:52 Protonix IVP 40 mg BID FRANCISCO Administration Pantoprazole Sodium 40 mg 05/12/18 09:00 Protonix PO DAILY [facility] Sodium Bicarbonate 650 mg 05/11/18 21:00 05/11/18 20:49 Sodium Bicarbonate Tab PO 650 mg BID FRANCISCO Administration Tamsulosin HCl 0.4 mg 05/12/18 09:00 Flomax PO DAILY FRANCISCO Intake and Output 05/11/18 05/12/18 05/12/18 22:59 06:59 14:59 Other: Voiding Method Incontinent Incontinent # Voids 1 3 Weight 68.5 kg 05/11/18 10:16 05/11/18 10:16 EKG Interpretations (text) Sinus rhythm without acute ST-T changes Assessment and Plan (1) Unstable angina Current Visit: Yes Status: Acute Code(s): I20.0 - UNSTABLE ANGINA SNOMED Code(s): 7277683 (2) Dyspnea Current Visit: Yes Status: Acute Code(s): R06.00 - DYSPNEA, UNSPECIFIED SNOMED Code(s): 547650894 (3) Aortic stenosis Current Visit: No Status: Acute Code(s): I35.0 - NONRHEUMATIC AORTIC (VALVE ) STENOSIS SNOMED Code(s): 45493686 (4) Acute on chronic renal failure Current Visit: Yes Status: Acute Code(s): N17.9 - ACUTE KIDNEY FAILURE, UNSPECIFIED; N18.9 - CHRONIC KIDNEY DISEASE, UNSPECIFIED SNOMED Code(s): 317258888 (5) Anemia Current Visit: Yes Status: Acute Code(s): D64.9 - ANEMIA, UNSPECIFIED SNOMED Code(s): 998109128 (6) Dehydration Current Visit: Yes Status: Acute Code(s): E86.0 - DEHYDRATION SNOMED Code( s): 92754998 (7) Urinary tract infection Current Visit: Yes Status: Acute Code(s): N39.0 - URINARY TRACT INFECTION, SITE NOT SPECIFIED SNOMED Code(s): 12145987 (8) Acute exacerbation of chronic obstructive airways disease Current Visit: No Status: Acute Code(s): J44.1 - CHRONIC OBSTRUCTIVE PULMONARY DISEASE W (ACUTE) EXACERBATION SNOMED Code(s): 083913068 Plan: Patient is being transferred to telemetry unit. Patient is being treated on dose of Lasix. Patient is going to have a chest x-ray and Nitropaste 1 inch. Echocardiogram. Further recommendations will depend upon the clinical course. We'll follow third troponin. Patient cannot be good candidate for cardiac interventions. Prognosis guarded
[2018-05-12] MEDS: IPRATROPIUM-ALBUTEROL 3 ML NEB INHALATION SCH ×4 (07:33→20:47)
[2018-05-12 07:36] LABS: Creatine Kinase MB 5.6 ng/mL (0.0-2.4)
[2018-05-12 07:45] LABS: Glucose,Whole Blood 146 mg/dL (75-99)
--- NOTE | 2018-05-12 07:57 | XR ---
EXAMINATION TYPE: XR chest 2V DATE OF EXAM: 05/12/2018 COMPARISON: Prior chest dated 05/11/2018 HISTORY: Shortness of breath TECHNIQUE: Frontal and lateral views of the chest are obtained on 3 images. FINDINGS: Prominent lung volumes may be indicative of COPD. Interstitium is increased. Heart size is stable. No evident pneumothorax or pleural effusion. There are coronary artery calcifications. Aorta is dense. IMPRESSION: Correlate for pulmonary venous hypertension and interstitial edema in a patient with pre -existing COPD. Follow-up is recommended.
[2018-05-12] MEDS ORDERED: NITROGLYCERIN OINT 1 INCH/GM PACKET TOPICAL SCH (08:00)
[2018-05-12 08:06] LABS: Troponin I 1.08 ng/mL (0.000-0.034)
[2018-05-12] MEDS: CARVEDILOL 12.5 MG TAB PO SCH (08:27)
[2018-05-12] MEDS: SODIUM BICARBONATE TAB 650 MG TAB PO SCH ×2 (08:27→20:17)
[2018-05-12] MEDS: TAMSULOSIN 0.4 MG CAP.ER.24H PO SCH (08:27)
[2018-05-12] MEDS: INSULIN ASPART 100 UNIT/ML 1 ML 10 ML VIAL SQ SCH ×4 (08:27→21:47)
[2018-05-12] MEDS: PANTOPRAZOLE 40 MG/10 ML VIAL IVP SCH ×2 (08:27→20:17)
[2018-05-12] MEDS: NIFEdipine XL 30 MG TAB.ER.24 PO SCH (08:27)
[2018-05-12] MEDS: INSULN ASP PRT/INSULIN ASPART 100 UNIT/ML 10 ML VIAL SQ SCH ×2 (08:28→16:28)
[2018-05-12] MEDS: FUROSEMIDE 20 MG TAB PO SCH (08:34)
[2018-05-12 08:39] LABS: Calcium 12.3 mg/dL (8.4-10.2); Magnesium 2.8 mg/dL (1.6-2.3); Phosphorus 4.9 mg/dL (2.5-4.5); Potassium 3.9 mmol/L (3.5-5.1)
[2018-05-12 09:00] LABS: Prothrombin Time 60.8 sec (9.0-12.0)
[2018-05-12] MEDS ORDERED: PANTOPRAZOLE 40 MG TABLET PO SCH (09:00)
[2018-05-12 09:05] LABS: INR 6.6 (<1.2)
[2018-05-12 09:18] LABS: Monocytes # (M) 0.48 k/uL (0-1.0); Neutrophils # (M) 3.22 k/uL (1.3-7.7); Neutrophils % (M) 67 %; Nucleated Red Blood Cells 0 /100 WBC (0-0); Total Cells Counted 100
[2018-05-12 09:19] LABS: Large Platelets Present; Rouleaux Present
[2018-05-12 09:20] LABS: Poikilocytosis (M) Present
[2018-05-12] MEDS: SODIUM CHLORIDE 0.9% 500 ML 500 ML IV SCH (09:56)
[2018-05-12] MEDS ORDERED: PHYTONADIONE ORAL 5 MG/5 ML ORAL.SYRG PO STA (10:02)
[2018-05-12 11:12] LABS: Glucose,Whole Blood 37 mg/dL (75-99)
[2018-05-12 11:12] LABS: Glucose,Whole Blood 27 mg/dL (75-99)
[2018-05-12 11:23] LABS: Glucose,Whole Blood 30 mg/dL (75-99)
[2018-05-12] MEDS ORDERED: DEXTROSE 50%-WATER 50 ML SYRINGE IVP ONE (11:24)
[2018-05-12] MEDS: DEXTROSE 50%-WATER 50 ML SYRINGE IVP STA ×2 (11:24→11:26)
[2018-05-12 11:47] LABS: Glucose,Whole Blood 173 mg/dL (75-99)
[2018-05-12 12:07] LABS: Parathyroid Hormone Intact 20.4 pg/mL (14.0-72.0)
[2018-05-12 12:09] LABS: Anisocytosis Slight; HCT 24.1 % (39.0-53.0); HGB 7.4 gm/dL (13.0-17.5); Hypochromasia Marked; MCH 29.6 pg (25.0-35.0); MCHC 30.8 g/dL (31.0-37.0); Macrocytosis Slight; Mean Platelet Volume 10.1; Platelet Count 130 k/uL (150-450); RBC 2.51 m/uL (4.30-5.90); RDW 18.3 % (11.5-15.5)
[2018-05-12] MEDS ORDERED: SODIUM CHLORIDE 0.9% 500 ML 250 ML IV ONE (12:09)
[2018-05-12 13:04] LABS: Calcium 12.4 mg/dL (8.4-10.2); Potassium 3.7 mmol/L (3.5-5.1)
[2018-05-12 13:22] LABS: Hemoglobin A1C 6.7 % (4.0-6.0)
[2018-05-12 16:14] LABS: Anisocytosis Slight; HCT 24.4 % (39.0-53.0); HGB 7.6 gm/dL (13.0-17.5); Hypochromasia Marked; MCH 29.7 pg (25.0-35.0); MCHC 31.2 g/dL (31.0-37.0); MCV 95.3 fL (80.0-100.0); Macrocytosis Slight; Mean Platelet Volume 11.2; Platelet Count 102 k/uL (150-450); RBC 2.56 m/uL (4.30-5.90); RDW 18.5 % (11.5-15.5); WBC 4.6 k/uL (3.8-10.6)
[2018-05-12 16:16] LABS: Glucose,Whole Blood 94 mg/dL (75-99)
[2018-05-12] MEDS: AMPICILLIN-SULBACTAM 1.5 GM in SODIUM CHLORIDE 0.9% 50 ML IVPB SCH (20:17)
[2018-05-12] MEDS: ATORVASTATIN 80 MG TAB PO SCH (20:17)
[2018-05-12 21:34] LABS: Glucose,Whole Blood 139 mg/dL (75-99)
--- NOTE | 2018-05-12 23:54 | PN ---
PROGRESS NOTE DATE OF SERVICE: 05/12/2018. ATTENDING PHYSICIAN: Dr. Joey Zuñiga. CHIEF COMPLAINT: Re-evaluation. HISTORY OF PRESENT ILLNESS: A 77-year-old gentleman, was admitted to the hospital with complaints of significant dysuria. The patient, this Saturday and Saturday, had great days, he in fact had been out with friends. In the morning he felt extremely tired and weak and noticed that on Saturday he had a dark color stool and on Saturday he had a dark-colored stool. The patient also complained of significant burning with urination. Denied any fever or chills. There was no hematuria. He has some urgency and frequency to urinate. The patient has had previous urinary tract infections. The patient has a history of BPH. He also has underlying history of chronic kidney disease stage 4, history of hypertension, diabetes mellitus, coronary artery disease, gastroesophageal reflux disease, peripheral arterial disease. The patient, following admission, has complained of some neck pain yesterday and his troponins are gradually elevating. He has underlying chronic atrial fibrillation and EKG does not show any acute changes. The patient was admitted by Dr. Munguia yesterday. I am seeing the patient today, this morning. I also re-evaluated the patient in the evening. This morning, the patient was doing fairly well. His left upper lip is somewhat swollen. Does not appear to be any facial weakness on that side. The patient denies any chest pain or shortness of breath more than usual. He does have a history of chronic COPD with respiratory failure. Denies any abdominal pain, nausea or vomiting. His appetite is fair. He had a small breakfast. REVIEW OF SYSTEM: NEURO: Denies any headaches or dizziness. PSYCH: No anxiety. He understands that he is toward the end of his life now. He did agree to no CPR. He has underlying heart disease, lung disease, kidney disease, peripheral arterial disease, diabetes mellitus, and myelodysplastic syndrome. Some apprehension. CARDIAC: Denies chest pain, angina, palpitations. RESPIRATORY: Unusual shortness of breath, no worsening. GI: No nausea, vomiting, abdominal pain, diarrhea. No bowel movements. : No dysuria now, but does have some frequency and urgency. Actually, patient was not able to void and he did have a straight cath done before. EXTREMITIES: Denies pain or edema. CONSTITUTIONAL: No fevers or chills. PHYSICAL EXAMINATION: Chronically ill-appearing gentleman, at present in no distress. Vital signs reveal temperature 97.8, pulse 68, respirations 18, blood pressure 122/58, pulse ox 94% on 2 L. HEENT: Normocephalic. NECK: No JVD. Oral cavity is dry. Left upper lip some swelling. Symmetrical facial movements. NECK: No JVD. No carotid bruits. CHEST: Generalized decreased air flow. Occasional rhonchi. CARDIAC: Distant heart sounds. S1, S2 with no gallops. Systolic murmur 2/6 left sternal border. Irregularly irregular rhythm. ABDOMEN: Soft. Bowel sounds active. EXTREMITIES: No edema. NEUROLOGIC: Awake, alert, oriented with well-coordinated movements. LABORATORY ASSESSMENT: CBC which revealed a hemoglobin of 7.4, white count 5000, platelet count 130,000. Electrolytes essentially normal. CO2 content 21, BUN 59, creatinine 3.78. Some improvement from previous one. INR was 6.6. Troponin elevated from 0.063 to 0.737. A1c 6.7. Patient's calcium was 13 yesterday, 12.3 today. ASSESSMENT: 1. Acute subendocardial myocardial infarction. 2. Upper gastrointestinal bleeding. 3. Hyperanticoagulated status. 4. Chronic atrial fibrillation. 5. Chronic kidney disease stage 4. 6. Diabetes mellitus with an episode of hypoglycemia. 7. Chronic obstructive pulmonary disease with chronic respiratory failure. 8. Urinary tract infection. PLAN: Continue with cautious hydration. The patient's CBC will be followed. He is on Protonix. Transfuse if blood pressure drops below 7. The patient is not a candidate for any major cardiac intervention. medical treatment for the same. His protime is 6.6, and we will give him vitamin K 2.5 mg p.o. since he has guaiac positive stool. His hemoglobin, however, is stable with a repeat at 7.4 x 2 and 7.6 subsequently. I did review with the patient his general condition, including reviewing that he has at least 4 major organ problems, which include myeloproliferative disorder, cardiac disorder, pulmonary disorder, renal disorder and diabetes mellitus. The patient understands that his lifespan is short now. He is trying to get his legal affairs in order. We will switch the patient to Unasyn because his urine is growing enterococcus group D. Prognosis remains guarded. MMODL / IJN: [id number] /
[2018-05-13] MEDS: HYDROcodone/APAP 5-325MG 1 EACH TAB PO PRN ×2 (01:49→18:50)
[2018-05-13] MEDS: ALPRAZolam 0.25 MG TAB PO PRN ×2 (01:49→18:53)
[2018-05-13 06:40] LABS: Anisocytosis Slight; HCT 23.1 % (39.0-53.0); HGB 7.2 gm/dL (13.0-17.5); Hypochromasia Marked; MCH 29.8 pg (25.0-35.0); MCHC 31.3 g/dL (31.0-37.0); MCV 95.1 fL (80.0-100.0); Macrocytosis Slight; Mean Platelet Volume 11.3; Platelet Count 108 k/uL (150-450); RBC 2.43 m/uL (4.30-5.90); RDW 18.5 % (11.5-15.5); WBC 3.6 k/uL (3.8-10.6)
[2018-05-13 06:46] LABS: Glucose,Whole Blood 125 mg/dL (75-99)
[2018-05-13] MEDS: INSULIN ASPART 100 UNIT/ML 1 ML 10 ML VIAL SQ SCH ×4 (06:54→20:59)
[2018-05-13] MEDS: INSULN ASP PRT/INSULIN ASPART 100 UNIT/ML 10 ML VIAL SQ SCH ×2 (06:58→17:19)
[2018-05-13 07:25] LABS: Calcium 12.2 mg/dL (8.4-10.2); Potassium 4.4 mmol/L (3.5-5.1)
[2018-05-13] MEDS: IPRATROPIUM-ALBUTEROL 3 ML NEB INHALATION SCH ×4 (09:36→20:03)
[2018-05-13] MEDS: SODIUM CHLORIDE 0.9% 1,000 ML IV SCH ×2 (10:15→22:30)
[2018-05-13] MEDS: AMPICILLIN-SULBACTAM 1.5 GM in SODIUM CHLORIDE 0.9% 50 ML IVPB SCH ×2 (10:16→21:03)
[2018-05-13] MEDS: TAMSULOSIN 0.4 MG CAP.ER.24H PO SCH (10:20)
[2018-05-13] MEDS: PANTOPRAZOLE 40 MG/10 ML VIAL IVP SCH ×2 (10:20→21:03)
[2018-05-13] MEDS: FUROSEMIDE 20 MG TAB PO SCH (10:20)
[2018-05-13] MEDS: SODIUM BICARBONATE TAB 650 MG TAB PO SCH ×2 (10:20→21:03)
[2018-05-13] MEDS: SODIUM CHLORIDE 0.9% 500 ML 500 ML IV SCH (10:35)
--- NOTE | 2018-05-13 10:43 | ECHOF ---
Referral Reason:Chest pain and cardiomyopathy MEASUREMENTS -------- HEIGHT: 175.3 cm WEIGHT: 68.5 kg BP: 140/60 RVIDd: 3.0 cm (< 3.3) IVSd: 1.2 cm (0.6 - 1.1) LVIDd: 5.1 cm (3.9 - 5.3) LVPWd: 1.2 cm (0.6 - 1.1) IVSs: 1.6 cm LVIDs: 3.4 cm LVPWs: 1.5 cm LAESV Index (A-L): 86.41 ml/m Ao Diam: 3.4 cm (2.0 - 3.7) AV Cusp: 1.5 cm (1.5 - 2.6) LA Diam: 3.9 cm (2.7 - 3.8) EPSS: 1.2 cm MV E Ayden: 1.38 m/s MV DecT: 242 ms MV A Ayden: 0.55 m/s MV E/A Ratio: 2.52 AV maxP.85 mmHg AV meanP.96 mmHg AR PHT: 803 ms RAP: 15.00 mmHg RVSP: 40.11 mmHg MV EF SLOPE: 74.26 mm/s (70 - 150) MV EXCURSION: 1.85 cm (> 18.000) FINDINGS -------- Resting bradycardia (HR<60bpm). This was a technically good study. The left ventricular size is normal. There is mild concentric left ventricular hypertrophy. Overa ll left ventricular systolic function is mildly impaired with, an EF between 45 - 50 %. The right ventricle is normal in size and function. LA is severely dilated >40 ml/m2 The right atrium is markedly enlarged. Aortic valve is trileaflet and is moderately thickened. There is nobc-ou-qqkrmulg aortic regurgitat ion. There is moderate aortic stenosis present. Peak/mean gradient across the Aortic Valve is 45. 85mmHg / 28.96mmHg. The mitral valve leaflets are moderately thickened. Moderate mitral annular calcification present. Severe mitral regurgitation is present. The peak and mean MV gradients are 9.96mmHg 3.71mmHg as measured by doppler. Mild mitral stenosis. Moderate to severe tricuspid regurgitation present. There is mild pulmonary hypertension. The rig ht ventricular systolic pressure, as measured by Doppler, is 40.11mmHg. Trace/mild (physiologic) pulmonic regurgitation. The aortic root size is normal. The inferior vena cava is dilated with poor inspiratory collapse which is consistent with estimated r ight atrial pressure of 20 mmHg. There is no pericardial effusion. CONCLUSIONS -------- 1. Resting bradycardia (HR<60bpm). 2. This was a technically good study. 3. The left ventricular size is normal. 4. There is mild concentric left ventricular hypertrophy. 5. Overall left ventricular systolic function is mildly impaired with, an EF between 45 - 50 %. 6. LA is severely dilated >40 ml/m2 7. The right atrium is markedly enlarged. 8. Aortic valve is trileaflet and is moderately thickened. 9. There is jvgn-an-faoworww aortic regurgitation. 10. There is moderate aortic stenosis present. 11. Peak/mean gradient across the Aortic Valve is 45.85mmHg / 28.96mmHg. 12. The mitral valve leaflets are moderately thickened. 13. Moderate mitral annular calcification present. 14. Severe mitral regurgitation is present. 15. The peak and mean MV gradients are 9.96mmHg 3.71mmHg as measured by doppler. 16. Mild mitral stenosis. 17. Moderate to severe tricuspid regurgitation present. 18. There is mild pulmonary hypertension. 19. The right ventricular systolic pressure, as measured by Doppler, is 40.11mmHg. 20. Trace/mild (physiologic) pulmonic regurgitation. 21. The aortic root size is normal. 22. The inferior vena cava is dilated with poor inspiratory collapse which is consistent with estimat ed right atrial pressure of 20 mmHg. 23. There is no pericardial effusion. SR RISK MANAGEMENT CONSULTANT: Morteza Herring RDCS
[2018-05-13 11:30] LABS: Glucose,Whole Blood 91 mg/dL (75-99)
[2018-05-13] MEDS: NIFEdipine XL 30 MG TAB.ER.24 PO SCH (13:01)
[2018-05-13 16:13] LABS: INR 2.8 (<1.2); Prothrombin Time 24.7 sec (9.0-12.0)
[2018-05-13 16:31] LABS: Glucose,Whole Blood 90 mg/dL (75-99)
--- NOTE | 2018-05-13 20:49 | PN ---
PROGRESS NOTE CHIEF COMPLAINT: Re-evaluation. HISTORY OF PRESENT ILLNESS: Vouhsej-qrc-omqn-old gentleman the patient feels disorder. Patient feels somewhat better today. come in to do some legal guaiac-positive. His INR was 6.6. It is down to 2.8 today. Patient's renal function has remained stable. His calcium is down to 12.2. REVIEW OF SYSTEMS: NEURO: Denies any headaches, dizziness. good eye contact. CONSTITUTIONAL: No fever or chills. CARDIAC: No chest pain, angina, palpitations. RESPIRATORY: Chronic shortness of breath, cough. No hemoptysis. GI: No nausea, vomiting, abdominal pain. No bowel movement. : No symptoms of dysuria now. Some frequency EXTREMITIES: Denies pain. PHYSICAL EXAMINATION: Pleasant gentleman, at present in no distress. VITAL SIGNS: Stable as recorded. Blood pressure 130/70, pulse rate 86, irregular. Afebrile. Neck supple. No JVD. Oral cavity is dry. CHEST: generalized decreased air flow. Occasional rhonchi. CARDIAC: Distant heart sounds. S1, S2 with no gallop. Systolic murmur 2/6, left sternal border. Heart rate is irregularly irregular. ABDOMEN: Soft. EXTREMITIES: Markedly decreased pedal pulses. Neurologically awake, alert, oriented with well-coordinated movements. LABORATORY ASSESSMENT: Hemoglobin 7.2, INR 2.8. Electrolytes are normal. Calcium down to 12.2. Renal function is stable. ASSESSMENT: 1. Status post subendocardial myocardial infarction. 2. Urinary tract infection. 3. Chronic kidney disease, stage IV. 4. Hyperkalemia. 5. Gastrointestinal bleeding. 6. Chronic acute blood loss. 7. Chronic atrial fibrillation. 8. Peripheral arterial disease. 9. Diabetes mellitus. PLAN: The patient at present is stable. Continue present medical regimen. Patient's condition was discussed with the patient. Prognosis remains guarded. He is Coumadin. Repeat CBC in the morning. Transfuse if hemoglobin is less than 7. Nephrology consult was requested. Prognosis remains guarded. MMODL / IJN: [id number] /
[2018-05-13] MEDS: ATORVASTATIN 80 MG TAB PO SCH (21:03)
[2018-05-13 21:05] LABS: Glucose,Whole Blood 84 mg/dL (75-99)
--- NOTE | 2018-05-14 00:40 | CONS ---
CONSULTATION REASON FOR CONSULT: Renal failure. HISTORY OF PRESENT ILLNESS: Patient is a 77-year-old male who was seen this morning. The patient has a history of chronic kidney disease NKF stage 4 with baseline creatinine of about 2 mg/dL. He was admitted to the hospital with complaints off difficulty in passing urine. The patient denied any fever. He was found to have significant urinary tract infection. Blood pressure was slightly on the lower side with systolic around 102 mmHg yesterday. Serum creatinine this admission was 3.7. It is at 3.9 today. The patient has been voiding. He is incontinent. The 24-hour urine output documented at about 650. His urine culture is growing enterococcus faecalis. Currently, patient is maintained on IV fluids at 75 mL an hour. He was also found to have hypercalcemia with a serum calcium of 13.3 on admission. Previous calcium was 9.8 on 04/18/2018. The patient was not on calcitriol or calcium supplements prior to admission. PAST MEDICAL HISTORY: CKD stage IV with baseline creatinine about 2, dyslipidemia, history of BPH, history of VRE urinary tract infection, coronary artery disease with coronary stent placement, history of abdominal aortic aneurysm. PAST SURGICAL HISTORY: Cardiac catheterization, coronary stent, repair of abdominal aortic aneurysm, left toe removal. SOCIAL HISTORY: Patient is a former smoker. No history of drug abuse or alcohol abuse. MEDICATIONS: Prior to admission included Xanax, aspirin, Lipitor, vitamin D3, magnesium omeprazole, Flomax, Xanax, Coreg, Procardia, Lasix, Coumadin, sodium bicarb, insulin. ALLERGIES: None. EXAMINATION: Patient is comfortable, awake. He is not in any acute distress. He is alert and oriented x3. Blood pressure this morning was 141/59, heart rate 76 per minute. He is afebrile. Examination of the heart S1, S2. Examination lungs bilateral breath sounds are heard. Abdomen is soft, nontender. Examination of lower extremities shows no significant edema. 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 LABS: Hemoglobin 7.2, sodium 139, potassium 4.4, BUN 57, serum creatinine 3.9, calcium was 12.2. Stool for occult blood was positive. ASSESSMENT: 1. Acute kidney injury on top of chronic kidney disease associated with hypercalcemia and hypovolemia and underlying infection. Monitor urine output closely and rule out urine retention. We will check a postvoid residual. Continue with IV fluids and antibiotics. 2. Hypercalcemia. Check a PTH level, 25 hydroxy vitamin D level, as well as serum and urine immunofixation. This can be associated with hypovolemia and acute kidney injury as well. At home patient was not on any active vitamin D. 3. Urinary tract infection with urine culture growing enterococcus faecalis with previous history of vancomycin resistant enterococcus, currently sensitive to vancomycin. The patient is maintained on Unasyn. 4. History of benign prostatic hypertrophy. 5. Metabolic acidosis. Maintained on oral sodium bicarb. PLAN: Check workup for hypercalcemia. If the calcium is not further improved by tomorrow, I will give a dose of pamidronate. Check iron studies. Start patient on Aranesp. Continue IV fluids. Avoid nephrotoxic agents. Continue with antibiotics as well. Thank you for this consultation. We will continue to follow the patient with you during his hospitalization. CHASE / MARICEL: [id number] /
[2018-05-14 02:00] LABS: Glucose,Whole Blood 80 mg/dL (75-99)
[2018-05-14] MEDS: ALPRAZolam 0.25 MG TAB PO PRN ×2 (03:08→14:48)
[2018-05-14] MEDS: HYDROcodone/APAP 5-325MG 1 EACH TAB PO PRN ×2 (03:08→14:46)
[2018-05-14] MEDS: INSULIN ASPART 100 UNIT/ML 1 ML 10 ML VIAL SQ SCH ×4 (06:11→19:50)
[2018-05-14] MEDS: INSULN ASP PRT/INSULIN ASPART 100 UNIT/ML 10 ML VIAL SQ SCH (06:12)
[2018-05-14 06:20] LABS: Glucose,Whole Blood 85 mg/dL (75-99)
[2018-05-14 07:02] LABS: INR 2.1 (<1.2)
[2018-05-14 07:20] LABS: Calcium 11.8 mg/dL (8.4-10.2); Potassium 4.5 mmol/L (3.5-5.1)
[2018-05-14 07:26] LABS: HCT 21.6 % (39.0-53.0); Hypochromasia Marked; MCH 29.6 pg (25.0-35.0); MCHC 31.2 g/dL (31.0-37.0); MCV 95.1 fL (80.0-100.0); Macrocytosis Slight; Mean Platelet Volume 10.9; RBC 2.28 m/uL (4.30-5.90); RDW 18.7 % (11.5-15.5); WBC 3.2 k/uL (3.8-10.6)
[2018-05-14 07:32] LABS: HGB 6.7 gm/dL (13.0-17.5)
[2018-05-14 08:53] LABS: Platelet Count 93 k/uL (150-450)
[2018-05-14] MEDS: IPRATROPIUM-ALBUTEROL 3 ML NEB INHALATION SCH ×4 (08:55→20:26)
[2018-05-14] MEDS: AMPICILLIN-SULBACTAM 1.5 GM in SODIUM CHLORIDE 0.9% 50 ML IVPB SCH ×2 (09:10→19:59)
[2018-05-14 09:31] LABS: Prothrombin Time 18.3 sec (9.0-12.0)
[2018-05-14] MEDS: SODIUM CHLORIDE 0.9% 500 ML 500 ML IV SCH (09:47)
[2018-05-14] MEDS: SODIUM CHLORIDE 0.9% 1,000 ML IV SCH (09:49)
[2018-05-14] MEDS: FUROSEMIDE 20 MG TAB PO SCH (09:52)
[2018-05-14] MEDS: SODIUM BICARBONATE TAB 650 MG TAB PO SCH ×2 (09:52→20:00)
[2018-05-14] MEDS: TAMSULOSIN 0.4 MG CAP.ER.24H PO SCH (09:52)
[2018-05-14] MEDS: PANTOPRAZOLE 40 MG/10 ML VIAL IVP SCH ×2 (09:52→19:57)
--- NOTE | 2018-05-14 10:48 | XR ---
EXAMINATION TYPE: XR chest 1V portable DATE OF EXAM: 05/14/2018 COMPARISON: Prior chest x-ray 05/12/2018 HISTORY: Congestive heart failure TECHNIQUE: Single frontal view of the chest is obtained. FINDINGS: Patient is rotated. No pneumothorax or pleural effusion evident. Patchy basilar density is present. Heart size is stable and enlarged. The aorta is dense. Pulmonary vascularity and timothy withi n normal limits. Interstitium is improved. IMPRESSION: Suspect improvement in volume status, aeration. Follow-up PA and lateral chest x-ray rec ommended.
[2018-05-14] MEDS: DARBEPOETIN ALFA 60 MCG/0.3 ML SYRINGE SQ SCH (11:23)
[2018-05-14 11:36] LABS: Glucose,Whole Blood 101 mg/dL (75-99)
[2018-05-14 13:00] LABS: Vitamin D 25 Hydroxy 56.5 ng/mL (30.0-100.0)
[2018-05-14 13:17] LABS: Iron Saturation 15.34 (15.00-50.00)
[2018-05-14] MEDS: NIFEdipine XL 30 MG TAB.ER.24 PO SCH (14:46)
--- NOTE | 2018-05-14 16:14 | PN ---
PROGRESS NOTE DATE OF SERVICE: 05/14/2018 DATA: NO CODE. Height 5 feet 9 inches, weight 71.5 kg, BSA 1.87 m2, BMI 23.3 kg/m2. ALLERGIES UNKNOWN. The patient is seen today and evaluated today by Dr. Munguia in the temporary absence of Dr. Zuñiga. The patient is still pale. He had anemia. Vital signs stable. Temperature 98.2, pulse rate 80, respiratory rate 16, blood pressure 124/59 with a mean pressure 80. He is 98% on 4 L oxygen. He underwent a chest x-ray and that was reported as suspected improvement of the volume status and aeration. He had initially no pneumothorax, no pleural effusion, and he had a patchy basilar density. His heart is enlarged but stable. Pulmonary vasculature and the timothy are within normal limits. They stated that interstitium is improved. Also yesterday Dr. Rodriguez, the sewing machine bobbin winder, saw the patient, evaluated him, with the impression of acute kidney injury on top of chronic kidney disease with the presence of hypercalcemia, hypovolemia and he has underlying infection with the urinary tract. Monitoring the urine output. Currently he has a Diaz catheter. The patient initially came with severe pain in the penis and could not tolerate it. He had hypercalcemia. However, the PTH is 14.4, the lower end of normal, which is suppressed by elevated hypercalcemia. Also she stated that the PTH should be checked, which has already been done, and the 25 hydroxy vitamin D and serum urine immunofixation; could be associated with the hypovolemia and acute kidney injury. He had also a urinary tract infection and urine culture growing Enterococcus faecalis. According to the culture sensitivity, that organism is sensitive to amoxicillin as well as clavulanic acid. In the past it was resistant but currently is not resistant. He had benign prostatic hypertrophy and he had metabolic acidosis. He is on sodium bicarb. Patient also had an echocardiogram which was read by Dr. Trish Benton. His note states that at the time the patient had the echo his blood pressure was 140/60 and his ejection fraction was 45% to 50% with slightly impaired left ventricular function. His left atrium was severely dilated with more than 40 mL/m2 and he had chronic atrial fibrillation. The right atrium was markedly enlarged, with mild pulmonary hypertension as well. His right ventricular pressure measured by Doppler was 40.11 mmHg. Patient has mild to moderate aortic regurgitation and moderate aortic stenosis. His gradient across the aortic valve is 45 and the mean 28 approximately. He had mitral valve calcification with severe mitral regurgitation. He had a peak and mean pressure on the mitral valve of 9.96 and mean 3.71, measured by Doppler, also with underlying mitral stenosis. Patient has also moderate to severe tricuspid regurgitation and mild pulmonary hypertension, as mentioned before. Cardiology consultation by Dr. Benton indicated the impression/assessment of unstable angina and dyspnea, aortic stenosis, acute on top of chronic renal failure, and at that time patient was in [place] and transferred to socket welder helper floor. He is currently in 365 on the monitoring floor/unit. Patient is not a good candidate for intervention or cardiac procedure. Today, as mentioned, his blood pressure was stable 124/59, and vital signs stable as mentioned above. HEENT: Head was normocephalic, atraumatic. He is pale in color. Neck was supple. Chest was clear to auscultation and percussion. Heart had irregular irregularities with atrial fibrillation, compensated. The abdomen was soft. Positive bowel sounds. EXTREMITIES: No edema. Positive pulses. LABORATORY: His white count is 3.2 with hemoglobin 6.7 and hematocrit 21.6, with the underlying marked hypochromasia and slight macrocytosis with the MCV 95.1, which is normal. PT and INR indicated pro time 18.3 and INR 2, which is therapeutic. His electrolytes were sodium 142, potassium 4.5, chloride 111 and carbon dioxide 21. His BUN was 52 and creatinine 3.65 with the underlying estimated glomerular filtration rate for non- 15, which is chronic kidney disease, stage V. His blood sugar is 79. His POC blood sugar has been stable. His calcium on admission was 13; currently it is 11.8. Iron is 25 and TIBC 163 and iron saturation 15.34. Vitamin D 56.5. PTH 14.4. ASSESSMENT: The patient has underlying history on admission of hypercalcemia at 13.3. He has history of dehydration with elevated creatinine on admission at 3.71 and BUN 63. At that time he had prolonged PT and INR which currently are stabilized and therapeutic. He has underlying myelodysplastic syndrome with thrombocytopenia and anemia and leukopenia. He has been seen in the past by Hematology/Oncology. We will see if Hematology/Oncology will help with his problem. He has underlying urinary tract infection. I had a discussion with the nursing staff. They are requesting physical therapy for future rehabilitation at home, and I did put in the order for physical therapy. We will ask also Hematology/Oncology for the purposes of treatment or transfusion with the underlying myelodysplastic syndrome. On the laboratory, we have underlying vitamin B12 was questioned and we will be ordering as well vitamin B12 level if it was not ordered before. Patient is currently improving gradually. However, the anemia is persistent, possibly with the underlying myelodysplastic syndrome, and we will consult Dr. Palomino, Hematology/Oncology. MMODL / IJN: [id number] /
[2018-05-14 16:34] LABS: Glucose,Whole Blood 89 mg/dL (75-99)
--- NOTE | 2018-05-14 17:11 | PN ---
PROGRESS NOTE Patient is seen for followup for acute kidney injury on top of chronic kidney disease. This morning patient is comfortable. He states he is feeling better. He did have urine retention and currently has a Diaz catheter. Patient has had good urine output; about 1000 mL documented for 24 hours. Patient remains on IV antibiotics. On examination this morning, blood pressure was 123/64, heart rate 70 per minute. Patient is afebrile. EXAMINATION OF THE HEART: S1, S2. EXAMINATION OF LUNGS: Bilateral breath sounds are heard. ABDOMEN: Soft, non-tender. Examination of lower extremities shows no significant edema. 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 Labs revealed sodium 142, potassium 4.5, chloride 111, BUN 52, serum creatinine 3.65. Calcium is down to 11.8. Hemoglobin was 6.7 g/dL. Iron saturation was 15%. Vitamin D was 56.5 and PTH was 14.4. ASSESSMENT: 1. Acute kidney injury associated with hypercalcemia, currently slightly improved. I will resume gentle IV hydration. Patient is also encouraged to increase his oral intake. There are no nephrotoxic agents on board. 2. Hypercalcemia. Patient did admit to taking calcium supplements at home, which he is advised to discontinue. Calcium level is decreasing. The PTH is appropriately low. 3. Anemia with gastrointestinal bleed. Stool for occult blood is positive. Hemoglobin is down to 6.7. Patient should be transfused packed RBCs. No active bleeding noted at this time. 4. Urinary tract infection with urine culture growing Enterococcus faecalis, maintained on Unasyn. 5. Dyslipidemia. 6. Chronic kidney disease, NKF stage IV. 7. Metabolic acidosis, currently maintained on sodium bicarb. PLAN: Transfuse one unit packed RBCs. Continue with oral sodium bicarb. Continue with antibiotics. Continue with the indwelling Diaz catheter. Will start gentle IV hydration with 50 mL/hour of fluids. Repeat labs in a.m. MMODL / IJN: [id number] /
[2018-05-14 19:51] LABS: Glucose,Whole Blood 113 mg/dL (75-99)
[2018-05-14] MEDS: ATORVASTATIN 80 MG TAB PO SCH (20:00)
--- NOTE | 2018-05-14 22:53 | P.CONS ---
History of Present Illness - Reason for Consult Consult date: 05/14/18 Pancytopenia, UTI - History of Present Illness Mr Olguin is a pleasant WM, with multiple medical problems. Routine labs in 07/10 had shown a Hg of 13.9, plt 178, and WBC 3.7, with RB indeces normal. CBC in 10/08 showed a Hgb of 11.1, plt 173, and WBC 4, with MCV 99.3. Iron studies showed saturation on 18.2%, low TIBC, and high ferritin at 398. On 03/07/17 Hgb was 10.2, plt 125, and WBC 3.5. MCV was now 100.8, while on 04/09/17 Hgb was 8.9 , plt 87, and WBC 4.6. Ferritin was 433.7, B12 978, and retic 1%. WBC diff during this time was mostly normal. Chem panel revealed increased Cr ( known CKD) with Cr 2.3 in 07/10 and 2.15 in 04/09. He denied any h/o blood related problems in the past. He is on Allopurinol chronically, and had his dose increased from 100 mg to 200 mg/d. However that apparently occurred around . He had additional labs done which were negative. His light chains and Ig were elevated with no evidence of monoclonality , s/o inflammation or liver disease. His US showed hepatomegaly with a coarse echotexture and evidence of portal HTN with a dilated PV. Spleen size was borderline As counts were in a safe range, he was placed on observation. He was seen in 11/08 with signficant drop in counts, and negative labs. He thus had a bone marrow on 11/20/17 The marrow showed increased cellularity with some fibrosis. Dysplastic changes were minimal. MDS FISH was negative. MF was considered a possibility and molecular testing ordered. this was also negative (JAK2, LOREN R, MPL, PDGFR) As low Hgb was the main issue, he was started on Procrit [id number] U SQ q wk on . He was admitted to [facility] with COPD exacerbation and pneumonia in early 02/08. He did require transfusion as his counts dropped from baseline. he was transferred to [facility], and discharged home in mid 03/11. He continued Procrit weekly with the last dose on 04/24/18, with Hgb 9. The patient missed the next 2 doses, as you'll not feeling well. He states that he had been having some shortness of breath which is fairly chronic due to his COPD, with mild exacerbation. However his main complaint coming in was progressive pain in the suprapubic area and penis on urinating. He started a couple weeks ago and had been progressively getting worse. He also reported difficulty in starting the urine stream. He therefore came into the emergency room where he was found to have abnormal UA, as well as worsening of his CK D. He was therefore admitted for further management and consult placed Review of Systems Constitutional: Reports fatigue, Reports poor appetite, Reports weakness Eyes: denies blurred vision, denies pain Ears: deny: decreased hearing, ear discharge, earache, tinnitus Ears, nose, mouth and throat: Denies headache, Denies sore throat Cardiovascular: Reports dyspnea on exertion Respiratory: Reports cough, Reports dyspnea Gastrointestinal: Reports abdominal pain, Reports constipation Genitourinary: Reports as per HPI, Reports genital pain, Reports urinary hesitancy Musculoskeletal: Reports muscle weakness Integumentary: Reports color changes, Reports darkening of skin, Reports dryness Neurological: Reports weakness Psychiatric: Denies anxiety, Denies depression Endocrine: Reports fatigue Hematologic/Lymphatic: Reports as per HPI Past Medical History Past Medical History: Coronary Artery Disease (CAD), Heart Failure, COPD, Pneumonia Additional Past Medical History / Comment(s): emphysema, low hgb , aortic stenosis Last Myocardial Infarction Date:: 2009 History of Any Multi-Drug Resistant Organisms: VRE Year Discovered:: 06/29/16 MDRO Source:: Urine Past Surgical History: Heart Catheterization With Stent Additional Past Surgical History / Comment(s): aortic anuersym repair, left foot toe removal, 4 cardiac stents. Past Anesthesia/Blood Transfusion Reactions: No Reported Reaction Date of Last Stent Placement:: unk Past Psychological History: No Psychological Hx Reported Additional Psychological History / Comment(s): sister living with pt, planning to move out 05/14/18. friend gee valladares comes in several times a day for meals and care. has home 02 and nebulizer Smoking Status: Former smoker Past Alcohol Use History: Occasional Additional Past Alcohol Use History / Comment(s): started smoking 1961 and quit 2014 smoked 1 ppd Past Drug Use History: None Reported - Past Family History Mother Additional Family Medical History / Comment(s): brain tumor Father Family Medical History: CVA/TIA Medications and Allergies Home Medications Medication Instructions Recorded Confirmed Type ALPRAZolam [Xanax] 0.25 mg PO TID PRN 02/07/18 05/11/18 History Atorvastatin [Lipitor] 80 mg PO HS 02/07/18 05/11/18 History Magnesium Oxide 800 mg PO DAILY 02/07/18 05/11/18 History Omeprazole 20 mg PO DAILY 02/07/18 05/11/18 History Tamsulosin [Flomax] 0.4 mg PO DAILY 02/07/18 05/11/18 History Insulin Aspart Protam & Aspart 10 unit SQ AC-BID #1 pen 02/11/18 05/11/18 Rx [NovoLOG MIX 70-30 Flexpen] NIFEdipine XL [Procardia XL] 30 mg PO DAILY tab.er.24 02/21/18 05/11/18 Rx Furosemide [Lasix] 40 mg PO DAILY 05/11/18 05/11/18 History Potassium Chloride [Klor-Con 20] 20 meq PO DAILY 05/11/18 05/11/18 History Allergies Allergy/AdvReac Type Severity Reaction Status Date / Time No Known Allergies Allergy Verified 05/11/18 17:01 Physical Exam Vitals: Vital Signs Temp Pulse Pulse Resp BP BP BP 05/14/18 15:20 97.9 F 85 20 127/68 05/14/18 14:52 97.9 F 82 20 140/64 05/14/18 14:30 97.5 F L 76 20 139/65 05/14/18 12:10 68 05/14/18 11:59 60 05/14/18 11:30 98.2 F 80 16 124/59 05/14/18 09:11 64 05/14/18 08:59 60 05/14/18 08:00 97.6 F 68 16 123/64 05/14/18 03:12 79 16 05/14/18 03:05 83 18 126/63 05/13/18 23:41 98.1 F 75 16 157/67 05/13/18 20:00 97.5 F L 68 18 144/66 Pulse Ox 05/14/18 15:20 100 05/14/18 14:52 95 05/14/18 14:30 97 05/14/18 12:10 05/14/18 11:59 05/14/18 11:30 98 05/14/18 09:11 05/14/18 08:59 94 L 05/14/18 08:00 100 05/14/18 03:12 96 05/14/18 03:05 91 L 05/13/18 23:41 97 05/13/18 20:00 93 L Intake and Output 05/14/18 05/14/18 05/14/18 06:59 14:59 22:59 Intake Total 160 150 Output Total 550 Balance -390 150 Intake: IV 160 50 Ampicillin-Sulbactam 1.5 50 gm In Sodium Chloride 0.9 % 50 ml @ 100 mls/hr IVPB Q12HR [facility] Rx#:[id number] Sodium Chloride 0.9% 500 160 ml 500 ml @ 20 mls/hr IV .Q24H [facility] Rx#:[id number] Oral 100 Blood Product 0 Rc As-3 Unit 0 [id number] Output: Urine 550 Straight 150 Other: Voiding Method Indwelling Catheter Indwelling Catheter Weight 71.5 kg 71.5 kg - Constitutional General appearance: no acute distress - EENT Eyes: EOMI, PERRLA ENT: hearing grossly normal, normal oropharynx - Neck Neck: no lymphadenopathy - Respiratory Respiratory: bilateral: diminished, prolonged expiration - Cardiovascular Rhythm: regular Heart sounds: normal: S1, S2 - Gastrointestinal General gastrointestinal: normal bowel sounds, soft - Integumentary Changes of chronic venous insufficiency, and dry skin on both lower extremities - Neurologic Neurologic: CNII-XII intact - Musculoskeletal Musculoskeletal: generalized weakness, strength equal bilaterally - Psychiatric Psychiatric: A&O x's 3, appropriate affect, intact judgment & insight Results CBC & Chem 7: 05/14/18 06:08 05/14/18 06:08 Labs: Abnormal Lab Results - Last 24 Hours (Table) 05/14/18 05/14/18 05/14/18 Range/Units 06:08 06:08 06:08 WBC 3.2 L (3.8-10.6) k/uL RBC 2.28 L (4.30-5.90) m/uL Hgb 6.7 L* (13.0-17.5) gm/dL Hct 21.6 L (39.0-53.0) % RDW 18.7 H (11.5-15.5) % Plt Count 93 L (150-450) k/uL PT 19.0 H (9.0-12.0) sec INR 2.1 H (<1.2) Chloride 111 H (98-107) mmol/L BUN 52 H (9-20) mg/dL Creatinine 3.65 H (0.66-1.25) mg/dL POC Glucose (mg/dL) (75-99) mg/dL Calcium 11.8 H (8.4-10.2) mg/dL Iron (65-175) ug/dL TIBC (228-460) ug/dL Crossmatch 05/14/18 05/14/18 05/14/18 Range/Units 09:08 09:08 09:08 WBC (3.8-10.6) k/uL RBC (4.30-5.90) m/uL Hgb (13.0-17.5) gm/dL Hct (39.0-53.0) % RDW (11.5-15.5) % Plt Count (150-450) k/uL PT 18.3 H (9.0-12.0) sec INR 2.0 H (<1.2) Chloride (98-107) mmol/L BUN (9-20) mg/dL Creatinine (0.66-1.25) mg/dL POC Glucose (mg/dL) (75-99) mg/dL Calcium (8.4-10.2) mg/dL Iron 25 L (65-175) ug/dL TIBC 163 L (228-460) ug/dL Crossmatch See Detail 05/14/18 Range/Units 11:34 WBC (3.8-10.6) k/uL RBC (4.30-5.90) m/uL Hgb (13.0-17.5) gm/dL Hct (39.0-53.0) % RDW (11.5-15.5) % Plt Count (150-450) k/uL PT (9.0-12.0) sec INR (<1.2) Chloride (98-107) mmol/L BUN (9-20) mg/dL Creatinine (0.66-1.25) mg/dL POC Glucose (mg/dL) 101 H (75-99) mg/dL Calcium (8.4-10.2) mg/dL Iron (65-175) ug/dL TIBC (228-460) ug/dL Crossmatch Microbiology - Last 24 Hours (Table) 05/11/18 10:16 Blood Culture - Preliminary Blood No Growth after 72 hours 05/11/18 10:29 Urine Culture - Final Urine,Catheterized Enterococcus faecalis Chest x-ray: report reviewed Assessment and Plan (1) Anemia Narrative/Plan: The patient actually has pancytopenia, with anemia most predominant. 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 Chronic kidney disease also contributing to his anemia. The patient's platelets and white blood cells have consistently been in safe range. On Procrit, hemoglobin has mostly been in the 9 range. The patient has missed his last 2 Procrit doses, and came in with hemoglobin in the 6 range. This was due to the same, as well as worsening of creatinine, and acute illness . - The pt is being transfused 1 U PRBC - Continue to monitor counts. Given underlying marrow compromise, the patient' s counts can drop significantly with ongoing infection/inflammation. Supportive treatment as needed - If the patient recovers and can be discharged within a comparatively short period of time, then we would not recommend giving Procrit during hospitalization since this effectiveness may be reduced with ongoing acute inflammation in any case Current Visit: Yes Status: Acute Code(s): D64.9 - ANEMIA, UNSPECIFIED SNOMED Code(s): 391164382 (2) Urinary tract infection Narrative/Plan: Patient feels better with antibiotics and hydration. Continue treatment for the admitting service Current Visit: Yes Status: Acute Code(s): N39.0 - URINARY TRACT INFECTION, SITE NOT SPECIFIED SNOMED Code(s): 76434301
[2018-05-15] MEDS: HYDROcodone/APAP 5-325MG 1 EACH TAB PO PRN ×2 (02:51→08:35)
[2018-05-15] MEDS: SODIUM CHLORIDE 0.9% 1,000 ML IV SCH (04:46)
[2018-05-15] MEDS: INSULIN ASPART 100 UNIT/ML 1 ML 10 ML VIAL SQ SCH ×4 (06:11→20:59)
[2018-05-15 06:15] LABS: Glucose,Whole Blood 92 mg/dL (75-99)
[2018-05-15 07:24] LABS: Anisocytosis Slight; HCT 25.3 % (39.0-53.0); Hypochromasia Marked; MCH 29.9 pg (25.0-35.0); MCHC 31.7 g/dL (31.0-37.0); MCV 94.3 fL (80.0-100.0); Macrocytosis Slight; Mean Platelet Volume 10.3; Poikilocytosis Slight; RBC 2.68 m/uL (4.30-5.90); RDW 18.9 % (11.5-15.5)
[2018-05-15 07:25] LABS: Platelet Count 88 k/uL (150-450)
[2018-05-15 07:41] LABS: Calcium 10.9 mg/dL (8.4-10.2); Potassium 4.4 mmol/L (3.5-5.1)
[2018-05-15] MEDS: IPRATROPIUM-ALBUTEROL 3 ML NEB INHALATION SCH ×4 (07:59→20:55)
[2018-05-15] MEDS: AMPICILLIN-SULBACTAM 1.5 GM in SODIUM CHLORIDE 0.9% 50 ML IVPB SCH ×2 (08:34→20:17)
[2018-05-15] MEDS: FUROSEMIDE 20 MG TAB PO SCH (08:35)
[2018-05-15] MEDS: SODIUM BICARBONATE TAB 650 MG TAB PO SCH ×2 (08:35→20:18)
[2018-05-15] MEDS: PANTOPRAZOLE 40 MG/10 ML VIAL IVP SCH ×2 (08:35→20:18)
[2018-05-15] MEDS: TAMSULOSIN 0.4 MG CAP.ER.24H PO SCH (08:35)
[2018-05-15] MEDS: NIFEdipine XL 30 MG TAB.ER.24 PO SCH (08:35)
--- NOTE | 2018-05-15 10:00 | PN ---
PROGRESS NOTE Patient is seen for followup for acute kidney injury. His renal function continues to improve. His serum creatinine is down to 3.1. The patient did have hypercalcemia on initial admission along with urinary retention. Currently, he has an indwelling Diaz catheter with good urine output. He is also getting IV fluids at about 50 mL an hour. The serum calcium was significantly elevated at 13.3 on initial admission. It is down to 10.9. Patient had been taking calcium supplements. PHYSICAL EXAMINATION: This morning blood pressure is 125/60, heart rate 76 per minute. He is afebrile. Examination of the heart: S1, S2. Examination of the lungs: Bilateral breath sounds are heard. Abdomen is soft, nontender. Examination lower extremities shows trace edema bilaterally. AGING ROOM OPERATOR exam is grossly intact. LABS: Show sodium 141, potassium 4.1, chloride 111, BUN 46, serum creatinine 3.4, calcium down to 10.9, iron saturation was 15.3 and hemoglobin is 8.0 g/dL. ASSESSMENT: 1. Acute kidney injury secondary to hypercalcemia, mild degree of volume depletion, currently improving. Patient also had urine retention and now he has a Diaz catheter. He has been eating fairly well. I will discontinue the IV fluids as renal function continues to improve. The patient also received packed RBCs yesterday. 2. Chronic kidney disease, NKF stage IV, secondary to nephrosclerosis. 3. Metabolic acidosis. Maintain on sodium bicarb. Etiology renal failure. 4. Urinary tract infection with urine culture growing Enterococcus faecalis, maintained on Unasyn. 5. Anemia with gastrointestinal bleed, status post packed RBCs transfusion. 6. Hypercalcemia associated with use of calcium supplements. PTH is appropriately low. Calcium level is decreasing. PLAN: Discontinue IV fluids. Continue to encourage increased oral intake. Continue with the Diaz catheter as well for now and continue with the Aranesp. MMODL / IJN: [id number] /
--- NOTE | 2018-05-15 10:35 | P.PN ---
Progress Note - Text The patient is a 77-year-old gentleman who has underlying myelodysplasia. Recently admitted with urinary tract infection. He is a patient of Dr. Sonis and has been followed by Dr. Munguia. Yesterday he received a unit of packed RBCs. This morning he is easily aroused. Denies any unusual chest pain or shortness of breath. No nausea or vomiting. He has a Diaz catheter in place. Vital signs are stable. He is afebrile. Blood pressure was 122/60. Lungs were clear. Heart reveals a high-pitched systolic murmur. Abdomen is nontender. Extremities did not reveal any unusual edema. Once again he is alert. Somewhat fatigued. No focal neurological changes. Laboratory Hemoglobin was 8.0. BUN and creatinine show some mild improvement. Calcium also is a bit lower. Impressions and plans The patient with urinary tract sepsis and acute on chronic renal failure along with anemia. Slow improvement. Nephrology note regarded. Oncology note regarded. Continue present medications. Dr. Munguia to resume care tomorrow.
[2018-05-15 12:08] LABS: Glucose,Whole Blood 102 mg/dL (75-99)
[2018-05-15 17:10] LABS: Glucose,Whole Blood 80 mg/dL (75-99)
[2018-05-15] MEDS: ATORVASTATIN 80 MG TAB PO SCH (20:17)
[2018-05-15 21:06] LABS: Glucose,Whole Blood 109 mg/dL (75-99)
[2018-05-15] MEDS: ALPRAZolam 0.25 MG TAB PO PRN (23:50)
[2018-05-16] MEDS: INSULIN ASPART 100 UNIT/ML 1 ML 10 ML VIAL SQ SCH ×4 (06:27→21:01)
[2018-05-16 06:28] LABS: Glucose,Whole Blood 82 mg/dL (75-99)
[2018-05-16] MEDS: IPRATROPIUM-ALBUTEROL 3 ML NEB INHALATION SCH ×4 (07:18→20:50)
[2018-05-16] MEDS: TAMSULOSIN 0.4 MG CAP.ER.24H PO SCH (08:55)
[2018-05-16] MEDS: NIFEdipine XL 30 MG TAB.ER.24 PO SCH (08:55)
[2018-05-16] MEDS: FUROSEMIDE 20 MG TAB PO SCH (08:55)
[2018-05-16] MEDS: PANTOPRAZOLE 40 MG/10 ML VIAL IVP SCH ×2 (08:56→19:40)
[2018-05-16] MEDS: AMPICILLIN-SULBACTAM 1.5 GM in SODIUM CHLORIDE 0.9% 50 ML IVPB SCH ×2 (08:56→19:40)
[2018-05-16] MEDS: HYDROcodone/APAP 5-325MG 1 EACH TAB PO PRN (08:57)
[2018-05-16 10:00] LABS: Calcium 10.8 mg/dL (8.4-10.2); Potassium 4.1 mmol/L (3.5-5.1)
[2018-05-16 11:17] LABS: Glucose,Whole Blood 99 mg/dL (75-99)
--- NOTE | 2018-05-16 12:58 | PN ---
PROGRESS NOTE Patient is seen for followup for acute kidney injury secondary to hypercalcemia. The patient's serum creatinine was about 3.7 mg/dL on initial admission. It is now down to 3.1. The patient was maintained on IV fluids for a short period of time. His calcium is down to 10.8 from 13.3 on initial admission. The patient had been taking calcium supplements. His PTH was appropriately low and he was not on Rocaltrol. Currently under treatment for UTI. PHYSICAL EXAMINATION: Blood pressure this morning 142/69, heart rate 76 per minute. He is afebrile. Examination of the heart S1, S2. Examination of lungs bilateral breath sounds are heard. Abdomen is soft, nontender. Examination of lower extremities shows no significant edema. EYEGLASS CUTTER exam is grossly intact. LAB: Shows sodium 141, potassium 4.1, BUN 41, serum creatinine 3.1, calcium 10.8 mg/ dL. ASSESSMENT: 1. Acute kidney injury secondary to hypercalcemia and urinary tract infection, currently improved. 2. Chronic kidney disease and NKF stage IV with baseline creatinine around the 2 -2.4 mg/dL. 3. Urinary tract infection with urine culture growing enterococcus faecalis. 4. Hypercalcemia associated with use of calcium supplements and acute kidney injury, currently improving. The PTH was appropriately low and the patient is off of calcium supplements. 5. Anemia with stool for occult blood being positive status post 1 unit packed RBCs transfusion. The patient is maintained on Aranesp. PLAN: Resume oral Lasix and repeat labs in a.m. MMODL / IJN: [id number] / OLLIE
--- NOTE | 2018-05-16 14:22 | PN ---
PROGRESS NOTE DATE OF SERVICE: 05/16/2018 ATTENDING PHYSICIAN: Dr. Zuñiga DATE OF SERVICE: 05/16/2018 NEW DATA: He is a NO CODE. He is a 5 feet 9 inches and he is 77. Weight is 70 kg, BSA 1.85 m2, BMI 22.8 kg/m2. Allergies unknown. The patient seen today evaluated by myself, Dr. Munguia. Currently vital signs indicating temperature 98.1, pulse 86, respiratory rate 18, blood pressure 128/63 with mean 84 and pulse ox 96 on nasal cannula 4 L. He stated that he had some hemoptysis with having blood clots in the tissue for coughing. LABORATORY DATA: On reviewing today, his laboratory was shown today is on 05/16/2018 is sodium 141, potassium 4.1, chloride 110, carbon dioxide is 24 and anion gap of 7, and BUN of 41 and creatinine 3.13, and he is according to estimated glomerular filtration rate for non- 18, which is minimally improved and with the associated chronic kidney disease stage 4, with the underlying nephrosclerosis and his blood sugar is CBG to scale and discontinuation of the mix has been done already and his blood sugar ranging between 99 and 82. His calcium is still abnormal elevated at 10.8. The etiology is still unclear to us. Her PTH is intact, has been suppressed with the elevated calcium 10.8. The seen yesterday by Dr. Biggs for the progress note in 05/15/2018 the Thanksgiving date. Last chest x-ray was done on May 14 showed that there is no known pneumothorax or pleural effusion. There is a patchy basilar density is present and the heart size was stable but enlarged and he had aorta dense pulmonary vascularity and hilar within normal limits and interstitium was improved. With the impression suspect improvement in the volume status and the followup with the PA and lateral chest x-ray as recommended. Read by Dr. Primo Zamora MD radiologist. The patient also seen by Dr. Rodriguez with the nephrology and with her impression that he had acute kidney injury secondary to hypercalcemia and urinary tract infection, currently improving. He had chronic kidney disease stage 4 with baseline creatinine was 2-2.4 mg per the DCL. Currently he is in the 3. He had a urinary tract infection and with the culture was Enterococcus faecalis and sensitive to Unasyn. He is currently on it. Next is hypercalcemia with the use of calcium supplement at home and the acute kidney injury is improving. The PTH appropriately low and the patient off the calcium supplement at this time. Next is anemia with stool was positive for Hemoccult and he had 1 unit of packed RBC transfusion and she stated the patient will be maintained on Aranesp. Resume Lasix and repeat the lab in a.m. On current examination, as mentioned, his blood pressure is controlled 128/63, afebrile, and he has history of underlying mitral stenosis as well as aortic stenosis and he is not surgically candidate and has been seen by the machine deburrer. PHYSICAL EXAM: Patient is conscious, alert, oriented, and able to communicate freely. 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 The neck was supple. No JVD. No thyromegaly. No lymphadenopathy. Trachea midline. The chest was lung was aerated bilaterally. He stated that he had a little cough with sputum tinged. The heart was compensated at this time and he had history of chronic atrial fibrillation and currently he is on no anticoagulant has been given to the patient because of the stool positive for Hemoccult and now he has also phlegm and that was blood tinged. The heart was compensated at this time, and the. abdomen is soft, nontender, positive bowel sounds. Pain in the penis and end of the penis has been resolved by having a Diaz catheter and we have also treated with a urinary tract infection. The EKG was done on the and that was shown to be atrial fibrillation with left anterior fascicular block and inferior infarction by the EKG was abnormal was signed by Cardiology, Dr. Benton. With these current assessment, the patient has: ASSESSMENT: 1. Myelodysplastic syndrome with pancytopenia. 2. Underlying hemoptysis was present in spite the chest x-ray was negative with what could be from coughing hard with the possible bronchitis and we will be obtaining again PT and INR tomorrow. Meanwhile we will see if that is repeated or not. Meanwhile, continuing the current medication. 3. Hypertension is well controlled. He is feeling much better at this point. The discharge planning: Try to discuss with him the going home with home care. The patient resistant and at the same time he does not agree with going to a [facility] and he expressed his feeling that he would like to in the hospital. However, I did tell him that if he is wishing for hospice of his choice, I will put order for that and the patient stated that no he does not want hospice at this point at this time and we will be planning for checking his urinalysis and culture and sensitivity if he has infection and to continue the antibiotic IV as he has Enterococcus faecalis was present in the urine. Continuation of supplementation as well as seen by the Dr. Palomino, hematology/oncology for his myelodysplastic syndrome. He has also history of congestive heart failure and atrial fibrillation in the past. Currently stable with the underlying history of mitral stenosis as well as aortic stenosis. Surgically no for further intervention by Dr. Benton, the consulting Rug Shampooer. Otherwise, we will continue the current treatment and we will follow on him until return of Dr. Zuñiga or if the patient decides he need hospice or going home with supporting. CHASE / RAN: [id number] /
[2018-05-16 16:49] LABS: Glucose,Whole Blood 128 mg/dL (75-99)
[2018-05-16] MEDS: ATORVASTATIN 80 MG TAB PO SCH (19:39)
[2018-05-16] MEDS: SODIUM BICARBONATE TAB 650 MG TAB PO SCH (19:39)
[2018-05-16 20:44] LABS: Glucose,Whole Blood 112 mg/dL (75-99)
[2018-05-16 21:08] LABS: Appearance,Urine Clear (Clear); Bilirubin,Urine Negative (Negative); Blood,Urine Trace (Negative); Color,Urine Yellow; Glucose,Urine (UA) Negative (Negative); Hyaline Casts,Urine 8 /lpf (0-2); Ketones,Urine Negative (Negative); Leukocyte Esterase,Urine Trace (Negative); Mucus,Urine Rare /hpf; Nitrite,Urine Negative (Negative); PH, Urine 6.5 (5.0-8.0); Protein,Urine 1+ (Negative); RBC,Urine 5 /hpf (0-5); Specific Gravity,Urine 1.011 (1.001-1.035); Squamous Epithelial Cell,Urine <1 /hpf (0-4); Urobilinogen,Urine <2.0 mg/dL (<2.0)
[2018-05-17 05:48] LABS: Glucose,Whole Blood 85 mg/dL (75-99)
[2018-05-17] MEDS: INSULIN ASPART 100 UNIT/ML 1 ML 10 ML VIAL SQ SCH ×4 (05:51→21:35)
[2018-05-17] MEDS: IPRATROPIUM-ALBUTEROL 3 ML NEB INHALATION SCH ×4 (07:00→20:30)
[2018-05-17 07:12] LABS: Anisocytosis Slight; HCT 25.7 % (39.0-53.0); HGB 8.5 gm/dL (13.0-17.5); Hypochromasia Moderate; MCH 30.3 pg (25.0-35.0); MCV 91.9 fL (80.0-100.0); Platelet Count 92 k/uL (150-450); RDW 18.7 % (11.5-15.5); WBC 3.3 k/uL (3.8-10.6)
[2018-05-17 07:15] LABS: INR 1.6 (<1.2); Prothrombin Time 14.4 sec (9.0-12.0)
[2018-05-17 07:20] LABS: Ionized Calcium 6.3 mg/dL (4.5-5.3)
[2018-05-17] MEDS: PANTOPRAZOLE 40 MG/10 ML VIAL IVP SCH ×2 (08:33→19:58)
[2018-05-17] MEDS: NIFEdipine XL 30 MG TAB.ER.24 PO SCH (08:33)
[2018-05-17] MEDS: TAMSULOSIN 0.4 MG CAP.ER.24H PO SCH (08:34)
[2018-05-17] MEDS: FUROSEMIDE 40 MG TAB PO SCH (08:34)
[2018-05-17] MEDS: SODIUM BICARBONATE TAB 650 MG TAB PO SCH ×2 (08:34→19:57)
[2018-05-17] MEDS: HYDROcodone/APAP 5-325MG 1 EACH TAB PO PRN (08:34)
[2018-05-17] MEDS: AMPICILLIN-SULBACTAM 1.5 GM in SODIUM CHLORIDE 0.9% 50 ML IVPB SCH ×2 (08:37→19:57)
[2018-05-17 08:46] LABS: Albumin 2.2 g/dL (3.5-5.0); Calcium 10.6 mg/dL (8.4-10.2); Potassium 3.9 mmol/L (3.5-5.1); Total Bilirubin 0.7 mg/dL (0.2-1.3); Total Protein 6.9 g/dL (6.3-8.2)
[2018-05-17 08:48] LABS: Basophils # (M) 0.03 k/uL (0-0.2); Lymphocytes # (M) 0.66 k/uL (1.0-4.8); Monocytes # (M) 0.43 k/uL (0-1.0); Neutrophils # (M) 2.18 k/uL (1.3-7.7); Neutrophils % (M) 66 %; Nucleated Red Blood Cells 0 /100 WBC (0-0); Rouleaux Present; Total Cells Counted 100
[2018-05-17 08:49] LABS: Poikilocytosis (M) Present
[2018-05-17 11:07] LABS: Glucose,Whole Blood 96 mg/dL (75-99)
--- NOTE | 2018-05-17 13:55 | P.PN ---
Subjective Progress Note Date: 05/17/18 Seen and examined for the follow-up of acute kidney injury and hypercalcemia. Making good amount of urine renal function improving including calcium. Objective - Vital Signs Vital signs: Vital Signs Temp 98 F 05/17/18 11:07 Pulse 82 05/17/18 12:00 Resp 16 05/17/18 12:00 BP 127/78 05/17/18 11:07 Pulse Ox 97 05/17/18 11:07 Intake & Output 05/16/18 05/17/18 05/17/18 18:59 06:59 18:59 Intake Total 462 50 965 Output Total 700 400 300 Balance -238 -350 665 Weight 70 kg 74 kg Intake: IV 50 Ampicillin-Sulbactam 1.5 50 gm In Sodium Chloride 0.9 % 50 ml @ 100 mls/hr IVPB Q12HR [facility] Rx#:[id number] Oral 462 965 Output: Urine 700 400 300 Other: Voiding Method Indwelling Catheter Indwelling Catheter Indwelling Catheter - Exam No acute distress S1-S2 heard Lungs clear Trace edema - Labs CBC & Chem 7: 05/17/18 06:40 05/17/18 06:40 Labs: Abnormal Lab Results - Last 24 Hours (Table) 05/16/18 05/16/18 05/16/18 Range/Units 09:20 16:47 20:33 WBC (3.8-10.6) k/uL RBC (4.30-5.90) m/uL Hgb (13.0-17.5) gm/dL Hct (39.0-53.0) % RDW (11.5-15.5) % Plt Count (150-450) k/uL Lymphocytes # (Manual) (1.0-4.8) k/uL PT (9.0-12.0) sec INR (<1.2) Chloride (98-107) mmol/L BUN (9-20) mg/dL Creatinine (0.66-1.25) mg/dL POC Glucose (mg/dL) 128 H (75-99) mg/dL Calcium (8.4-10.2) mg/dL Ionized Calcium Hoang (4.5-5.3) mg/dL Alkaline Phosphatase (38-126) U/L Albumin (3.5-5.0) g/dL Vitamin B12 1847.0 H (200.0-944.0) pg/mL Urine Protein 1+ H (Negative) Urine Blood Trace H (Negative) Ur Leukocyte Esterase Trace H (Negative) Urine WBC 8 H (0-5) /hpf Hyaline Casts 8 H (0-2) /lpf Urine Mucus Rare H (None) /hpf 05/16/18 05/17/18 05/17/18 Range/Units 20:42 06:40 06:40 WBC 3.3 L (3.8-10.6) k/uL RBC 2.80 L (4.30-5.90) m/uL Hgb 8.5 L (13.0-17.5) gm/dL Hct 25.7 L (39.0-53.0) % RDW 18.7 H (11.5-15.5) % Plt Count 92 L (150-450) k/uL Lymphocytes # (Manual) 0.66 L (1.0-4.8) k/uL PT (9.0-12.0) sec INR (<1.2) Chloride 109 H (98-107) mmol/L BUN 37 H (9-20) mg/dL Creatinine 3.06 H (0.66-1.25) mg/dL POC Glucose (mg/dL) 112 H (75-99) mg/dL Calcium 10.6 H (8.4-10.2) mg/dL Ionized Calcium Hoang 6.3 H* (4.5-5.3) mg/dL Alkaline Phosphatase 129 H (38-126) U/L Albumin 2.2 L (3.5-5.0) g/dL Vitamin B12 (200.0-944.0) pg/mL Urine Protein (Negative) Urine Blood (Negative) Ur Leukocyte Esterase (Negative) Urine WBC (0-5) /hpf Hyaline Casts (0-2) /lpf Urine Mucus (None) /hpf 05/17/18 Range/Units 06:40 WBC (3.8-10.6) k/uL RBC (4.30-5.90) m/uL Hgb (13.0-17.5) gm/dL Hct (39.0-53.0) % RDW (11.5-15.5) % Plt Count (150-450) k/uL Lymphocytes # (Manual) (1.0-4.8) k/uL PT 14.4 H (9.0-12.0) sec INR 1.6 H (<1.2) Chloride (98-107) mmol/L BUN (9-20) mg/dL Creatinine (0.66-1.25) mg/dL POC Glucose (mg/dL) (75-99) mg/dL Calcium (8.4-10.2) mg/dL Ionized Calcium Hoang (4.5-5.3) mg/dL Alkaline Phosphatase (38-126) U/L Albumin (3.5-5.0) g/dL Vitamin B12 (200.0-944.0) pg/mL Urine Protein (Negative) Urine Blood (Negative) Ur Leukocyte Esterase (Negative) Urine WBC (0-5) /hpf Hyaline Casts (0-2) /lpf Urine Mucus (None) /hpf Microbiology - Last 24 Hours (Table) 05/16/18 20:33 Urine Culture - Preliminary Urine,Voided 05/11/18 10:16 Blood Culture - Preliminary Blood No Growth after 120 hours Assessment and Plan Assessment: #1 Cute kidney injury secondary to hypercalcemia and urinary tract infection #2 CK D4 with a baseline creatinine 2-2.4 MG per DL #3 urinary tract infection with enterococcus #4 hypERcalcemia secondary to calcium supplements #5 anemia Plan: #1 creatinine improving including calcium. #2 monitor, currently on Lasix. Lasix can also cause worsening renal function from prerenal process. #3 oncology on board.
--- NOTE | 2018-05-17 14:32 | P.PN ---
Subjective Progress Note Date: 05/17/18 (Dr. Zuñiga patient) Principal diagnosis: Penile pain severe associated with urinary retention, UTI Enterococcus faecalis, sensitive to Unasyn. PT and INR prolongation with positive Hemoccult of the stool currently improved INR 1.6. Myelodysplastic syndrome with the morin- cytopenia. Acute on the top of chronic kidney injury, with the chronic kidney disease stage IV with minimal improvement, patient is lying 2-2.4 creatinine. Hypercalcemia still present with ionized calcium more than 6 and the patient is not taken at this time or at least since admission calcium or vitamin D, his PTH is suppressed to the lab for normal 14.4 due to the hypercalcemia, However these hypercalcemia is because of onset etiology has malignancy secreting PTHr. Chronic congestive heart failure, with the underlying R aortic stenosis, mitral stenosis, with the mild elevation of BNP on admission with mild edema over the ankle, has been resolved with the diuresis. With the possibility systolic and diastolic dysfunction. This is a dictation on progress note date of service 05/17/2018. A progress note on 05/16/2018 has been dictated on the phone. Number of dictation [id number]. Patient seen today evaluated discussed with them the plan of care and the current laboratories. Patient seen by the scarfer today with the assessment #1 acute kidney injury secondary to hypercalcemia and the urinary tract infection. #2 CK D4 with baseline creatinine2.4 mg/DC liters #3 urinary tract infection with Enterococcus faecalis #4 hypercalcemia secondary to calcium supplements #5 anemia. Patient is seen today at discussed with him the plan of care conscious alert oriented 3 he wants to discuss it with Dr. Zuñiga on Saturday. Patient currently feels better clinically. Vital signs stable blood pressure is controlled HEENT was negative, neck was supple no JVD no thyromegaly no lymphadenopathy. Chest was clear to auscultation and percussion no shortness of breath. Heart: He had systolic murmur grade 3/6 with aortic stenosis on the apex and the base of the heart and aortic area also he had rumbling with the mitral stenosis as well to the axilla however he is compensated with no JVD and no edema of the lower extremities. Abdomen: No pain no lower abdominal pain and he had the Diaz catheter in place and no retention at this time and he draining well clear urine. No tenderness on the 4 quadrants of the abdomen and no palpable masses. Extremities: Moving 4 extremities no edema and good pulses in the lower extremities. Assessment and plan: #1and a urine analysis and culture and sensitivity ordered yesterday on May 16. #2 hydrated discussed with the lab the possibility of ordering the PTH NM that associated with the malignancy as patient still had the hypercalcemia. On expected occult malignancy could not be excluded. #3 INR 1.6 today closer to normal. Patient is not coughing today and no hemoptysis. We'll continue the current treatment and recheck on his renal function as well as calcium tomorrow and will communicate with the oncology to give us their thoughts about the currently hypercalcemia. Objective - Vital Signs Vital signs: Vital Signs Temp 98 F 05/17/18 11:07 Pulse 82 05/17/18 12:00 Resp 16 05/17/18 12:00 BP 127/78 05/17/18 11:07 Pulse Ox 97 05/17/18 11:07 Intake & Output 05/16/18 05/17/18 05/17/18 18:59 06:59 18:59 Intake Total 462 50 965 Output Total 700 400 300 Balance -238 -350 665 Weight 70 kg 74 kg Intake: IV 50 Ampicillin-Sulbactam 1.5 50 gm In Sodium Chloride 0.9 % 50 ml @ 100 mls/hr IVPB Q12HR [facility] Rx#:[id number] Oral 462 965 Output: Urine 700 400 300 Other: Voiding Method Indwelling Catheter Indwelling Catheter Indwelling Catheter - Labs CBC & Chem 7: 05/17/18 06:40 05/17/18 06:40 Labs: Abnormal Lab Results - Last 24 Hours (Table) 05/16/18 05/16/18 05/16/18 Range/Units 09:20 16:47 20:33 WBC (3.8-10.6) k/uL RBC (4.30-5.90) m/uL Hgb (13.0-17.5) gm/dL Hct (39.0-53.0) % RDW (11.5-15.5) % Plt Count (150-450) k/uL Lymphocytes # (Manual) (1.0-4.8) k/uL PT (9.0-12.0) sec INR (<1.2) Chloride (98-107) mmol/L BUN (9-20) mg/dL Creatinine (0.66-1.25) mg/dL POC Glucose (mg/dL) 128 H (75-99) mg/dL Calcium (8.4-10.2) mg/dL Ionized Calcium Hoang (4.5-5.3) mg/dL Alkaline Phosphatase (38-126) U/L Albumin (3.5-5.0) g/dL Vitamin B12 1847.0 H (200.0-944.0) pg/mL Urine Protein 1+ H (Negative) Urine Blood Trace H (Negative) Ur Leukocyte Esterase Trace H (Negative) Urine WBC 8 H (0-5) /hpf Hyaline Casts 8 H (0-2) /lpf Urine Mucus Rare H (None) /hpf 05/16/18 05/17/18 05/17/18 Range/Units 20:42 06:40 06:40 WBC 3.3 L (3.8-10.6) k/uL RBC 2.80 L (4.30-5.90) m/uL Hgb 8.5 L (13.0-17.5) gm/dL Hct 25.7 L (39.0-53.0) % RDW 18.7 H (11.5-15.5) % Plt Count 92 L (150-450) k/uL Lymphocytes # (Manual) 0.66 L (1.0-4.8) k/uL PT (9.0-12.0) sec INR (<1.2) Chloride 109 H (98-107) mmol/L BUN 37 H (9-20) mg/dL Creatinine 3.06 H (0.66-1.25) mg/dL POC Glucose (mg/dL) 112 H (75-99) mg/dL Calcium 10.6 H (8.4-10.2) mg/dL Ionized Calcium Hoang 6.3 H* (4.5-5.3) mg/dL Alkaline Phosphatase 129 H (38-126) U/L Albumin 2.2 L (3.5-5.0) g/dL Vitamin B12 (200.0-944.0) pg/mL Urine Protein (Negative) Urine Blood (Negative) Ur Leukocyte Esterase (Negative) Urine WBC (0-5) /hpf Hyaline Casts (0-2) /lpf Urine Mucus (None) /hpf 05/17/18 Range/Units 06:40 WBC (3.8-10.6) k/uL RBC (4.30-5.90) m/uL Hgb (13.0-17.5) gm/dL Hct (39.0-53.0) % RDW (11.5-15.5) % Plt Count (150-450) k/uL Lymphocytes # (Manual) (1.0-4.8) k/uL PT 14.4 H (9.0-12.0) sec INR 1.6 H (<1.2) Chloride (98-107) mmol/L BUN (9-20) mg/dL Creatinine (0.66-1.25) mg/dL POC Glucose (mg/dL) (75-99) mg/dL Calcium (8.4-10.2) mg/dL Ionized Calcium Hoang (4.5-5.3) mg/dL Alkaline Phosphatase (38-126) U/L Albumin (3.5-5.0) g/dL Vitamin B12 (200.0-944.0) pg/mL Urine Protein (Negative) Urine Blood (Negative) Ur Leukocyte Esterase (Negative) Urine WBC (0-5) /hpf Hyaline Casts (0-2) /lpf Urine Mucus (None) /hpf Microbiology - Last 24 Hours (Table) 05/11/18 10:16 Blood Culture - Final Blood No Growth after 144 hours 05/16/18 20:33 Urine Culture - Preliminary Urine,Voided
[2018-05-17 16:19] LABS: Glucose,Whole Blood 128 mg/dL (75-99)
[2018-05-17] MEDS: ATORVASTATIN 80 MG TAB PO SCH (19:57)
[2018-05-17 21:03] LABS: Glucose,Whole Blood 177 mg/dL (75-99)
[2018-05-18 05:54] LABS: Glucose,Whole Blood 100 mg/dL (75-99)
[2018-05-18] MEDS: INSULIN ASPART 100 UNIT/ML 1 ML 10 ML VIAL SQ SCH ×4 (05:55→20:21)
[2018-05-18 06:27] LABS: Anisocytosis Slight; HCT 25.5 % (39.0-53.0); HGB 7.9 gm/dL (13.0-17.5); Hypochromasia Moderate; MCH 28.8 pg (25.0-35.0); MCHC 30.9 g/dL (31.0-37.0); MCV 93.1 fL (80.0-100.0); Mean Platelet Volume 10.5; RBC 2.73 m/uL (4.30-5.90); RDW 18.7 % (11.5-15.5); WBC 2.9 k/uL (3.8-10.6)
[2018-05-18 07:10] LABS: Platelet Count 88 k/uL (150-450)
[2018-05-18 07:27] LABS: Calcium 10.8 mg/dL (8.4-10.2); Magnesium 1.6 mg/dL (1.6-2.3); Phosphorus 3.7 mg/dL (2.5-4.5); Potassium 3.7 mmol/L (3.5-5.1)
[2018-05-18] MEDS: IPRATROPIUM-ALBUTEROL 3 ML NEB INHALATION SCH ×4 (07:27→20:20)
[2018-05-18 07:30] LABS: Basophils # (M) 0.06 k/uL (0-0.2); Eosinophils # (M) 0.06 k/uL (0-0.7); Lymphocytes # (M) 1.02 k/uL (1.0-4.8); Monocytes # (M) 0.26 k/uL (0-1.0); Neutrophils # (M) 1.51 k/uL (1.3-7.7); Neutrophils % (M) 52 %; Nucleated Red Blood Cells 0 /100 WBC (0-0); Total Cells Counted 100
[2018-05-18] MEDS: HYDROcodone/APAP 5-325MG 1 EACH TAB PO PRN (09:05)
[2018-05-18] MEDS: PANTOPRAZOLE 40 MG/10 ML VIAL IVP SCH (09:05)
[2018-05-18] MEDS: ALPRAZolam 0.25 MG TAB PO PRN (09:06)
[2018-05-18] MEDS: FUROSEMIDE 40 MG TAB PO SCH (09:06)
[2018-05-18] MEDS: AMPICILLIN-SULBACTAM 1.5 GM in SODIUM CHLORIDE 0.9% 50 ML IVPB SCH ×2 (09:06→20:21)
[2018-05-18] MEDS: TAMSULOSIN 0.4 MG CAP.ER.24H PO SCH (09:06)
[2018-05-18] MEDS: NIFEdipine XL 30 MG TAB.ER.24 PO SCH (09:06)
[2018-05-18] MEDS: SODIUM BICARBONATE TAB 650 MG TAB PO SCH (09:07)
[2018-05-18 11:16] LABS: Glucose,Whole Blood 135 mg/dL (75-99)
[2018-05-18 12:03] LABS: INR 1.5 (<1.2); Prothrombin Time 14.2 sec (9.0-12.0)
--- NOTE | 2018-05-18 12:06 | PN ---
PROGRESS NOTE ATTENDING PHYSICIAN: Dr. Chance Zuñiga DATE OF SERVICE: 05/18/2018. NEW DATA: The patient is a NO CODE. He is 5 feet 9 inches height, weight 73.2 kg, BSA 1.89 m2, BMI 23.8 kg/m2. The patient is seen today [id number] and discussed with him the plan and he also stated that he is waiting for Dr. 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 The patient stated that he preferred to in the hospital. On the laboratory, we did check back on May 16 his calcium ionized and was 6.3, and yesterday he had a phosphate was 3.7, and magnesium 1.6. Also on the , his liver enzyme was normal. Vitamin B12 1847 which is high and his albumin was 2.2, but the total protein 6.9. His urine culture we repeated again after the treatment of 6 days of Unasyn and at this time is no growth after 18 hours, will be completing the 7 days because he had enterococcus faecalis but sensitive to Unasyn. His current creatinine is 3 on May 16 3.06, on May 17, 3.49 and has been fluctuating in this range he is in stage IV today May 18. PHYSICAL EXAMINATION: Vital signs stable with temperature 97.7, and pulse rate 78, respiratory rate 18 and saturation 98% on 3 L. He was stating that he is short of breath. His last chest x- ray was done on 05/14/2018 which suspected at that time improvement in the volume status and aeration. They also stated that followup PA and lateral is recommended. He had at that time, patchy basilar density was present, but no pneumothorax and the patient was rotated and there is no pleural effusion. On examination today, patient is conscious, alert, oriented, able to communicate freely. He has no specific complaints except mentioning that he was short of breath. We will repeat the chest x-ray. On the examination HEENT was negative. Neck was supple and the chest was irrigated bilaterally. I could not elicit wheezes or rhonchi and he has decreased air entry on the basis. He had increased anteroposterior diameter. The heart PMI in the 5th outside midclavicular line. He has a systolic murmur and on the aortic area with the underlying aortic stenosis as well as he has mitral stenosis with a rumble murmur. He is compensated. No evidence of congestive heart failure at this time. The abdomen is soft, positive bowel sounds. EXTREMITIES: No edema and positive pulses and he refused the rehabilitation. The pain in his penis and the bladder has been resolved and he has a Diaz catheter, which was secondary to urine retention. LABORATORY: Indicating that today his white count is 2.9, is dropping; his hemoglobin 7.9, dropping as well and his hematocrit 25.5. Platelet count down to 88. Today his chemistry on the 18 of May, his sodium 141, potassium 3.7, chloride 108, carbon dioxide 26, his anion gap is 7, and his CO2 26, as mentioned, and his creatinine of 3.49 and BUN 34, and he is still in the stage IV for non- and the estimated glomerular filtration rate is 16. Blood sugar is stable with the ASE coverage only with insulin and his calcium is 10.8 today, which actually increased from 10.6 on May 17. ASSESSMENT AND PLAN: 1. He had history of Enterococcus faecalis urinary tract infection sensitive to Unasyn. 2. Acute renal failure on the top of chronic. 3. Chronic kidney disease stage 4. 4. Myelodysplastic syndrome which is progressing and worsening. 5. History of diabetes mellitus, currently was hypoglycemic and adjusted her insulin. 6. Hypercalcemia with etiology unknown. Currently his pro-time and INR was okay on May 17 the INR 1.6. PLAN: We did reconsult Dr. Palomino for the helping in regard of the hypercalcemia could be from other etiology as a malignancy. I do not see any response at this time and the patient still has hypercalcemia and chronic kidney disease as they stated by Nephrology that the acute kidney injury secondary to hypercalcemia, but currently patient used to take calcium and vitamin D, but currently he has not been taking calcium or vitamin D and still he has hypercalcemia and the answer is not really satisfactory at this time until we figure out why he has hypercalcemia, which I do not know. The patient will have a chest x-ray today, repeat and subsequently lab tomorrow and Dr. Zuñiga will be following the patient tomorrow in a.m. I did also check with the laboratory for the PTH related cancer and they said that they do not have it here and they will contact us after they contacted the main lab in [place] and then call us. Unfortunately, they did not call me back. We will be ordering it if we have the lab available to us. CHASE / MARICEL: [id number] /
--- NOTE | 2018-05-18 15:17 | P.PN ---
Subjective Progress Note Date: 05/18/18 Seen and examined for the follow-up of acute kidney injury and hypercalcemia. No nausea vomiting or diarrhea. Renal function worsening today. Objective - Vital Signs Vital signs: Vital Signs Temp 97.6 F 05/18/18 10:50 Pulse 76 05/18/18 10:53 Resp 18 05/18/18 10:53 BP 132/60 05/18/18 10:50 Pulse Ox 98 05/18/18 10:50 Intake & Output 05/17/18 05/18/18 05/18/18 18:59 06:59 18:59 Intake Total 1165 50 Output Total 300 1400 575 Balance 865 -1350 -575 Weight 73.2 kg Intake: IV 50 Ampicillin-Sulbactam 1.5 50 gm In Sodium Chloride 0.9 % 50 ml @ 100 mls/hr IVPB Q12HR [facility] Rx#:[id number] Oral 1165 Output: Urine 300 1400 575 Other: Voiding Method Indwelling Catheter Indwelling Catheter Indwelling Catheter # Bowel Movements 1 - Exam No acute distress S1-S2 heard Lungs clear No edema, Diaz - Labs CBC & Chem 7: 05/18/18 05:59 05/18/18 05:59 Labs: Abnormal Lab Results - Last 24 Hours (Table) 05/17/18 05/17/18 05/18/18 Range/Units 16:17 21:01 05:53 WBC (3.8-10.6) k/uL RBC (4.30-5.90) m/uL Hgb (13.0-17.5) gm/dL Hct (39.0-53.0) % MCHC (31.0-37.0) g/dL RDW (11.5-15.5) % Plt Count (150-450) k/uL PT (9.0-12.0) sec INR (<1.2) Chloride (98-107) mmol/L BUN (9-20) mg/dL Creatinine (0.66-1.25) mg/dL POC Glucose (mg/dL) 128 H 177 H 100 H (75-99) mg/dL Calcium (8.4-10.2) mg/dL 05/18/18 05/18/18 05/18/18 Range/Units 05:59 05:59 11:14 WBC 2.9 L (3.8-10.6) k/uL RBC 2.73 L (4.30-5.90) m/uL Hgb 7.9 L (13.0-17.5) gm/dL Hct 25.5 L (39.0-53.0) % MCHC 30.9 L (31.0-37.0) g/dL RDW 18.7 H (11.5-15.5) % Plt Count 88 L (150-450) k/uL PT (9.0-12.0) sec INR (<1.2) Chloride 108 H (98-107) mmol/L BUN 34 H (9-20) mg/dL Creatinine 3.49 H (0.66-1.25) mg/dL POC Glucose (mg/dL) 135 H (75-99) mg/dL Calcium 10.8 H (8.4-10.2) mg/dL 05/18/18 Range/Units 11:22 WBC (3.8-10.6) k/uL RBC (4.30-5.90) m/uL Hgb (13.0-17.5) gm/dL Hct (39.0-53.0) % MCHC (31.0-37.0) g/dL RDW (11.5-15.5) % Plt Count (150-450) k/uL PT 14.2 H (9.0-12.0) sec INR 1.5 H (<1.2) Chloride (98-107) mmol/L BUN (9-20) mg/dL Creatinine (0.66-1.25) mg/dL POC Glucose (mg/dL) (75-99) mg/dL Calcium (8.4-10.2) mg/dL Microbiology - Last 24 Hours (Table) 05/16/18 20:33 Urine Culture - Final Urine,Voided 05/11/18 10:16 Blood Culture - Final Blood No Growth after 144 hours Assessment and Plan Assessment: #1 Cute kidney injury secondary to hypercalcemia and urinary tract infection. Creeping creatinine suspect prerenal process from diuretic use #2 CKD4 with a baseline creatinine 2-2.4 MG per DL #3 urinary tract infection with enterococcus. #4 hypERcalcemia secondary to calcium supplements. With anemia rule out multiple myeloma. #5 anemia Plan: #1 creatinine creeping. Stop Lasix and start saline 0.9 at 75 ML's an hour. #2 given a dose of pamidronate for persistent hypercalcemia. It is non-PTH mediated with a suspected calcium supplement use. Rule out multiple myeloma and also check PTH RP and 1 25-hydroxy vitamin D. #3 labs in the morning. #4 oncology on board.
[2018-05-18 17:20] LABS: Glucose,Whole Blood 140 mg/dL (75-99)
[2018-05-18] MEDS: SODIUM CHLORIDE 0.9% 1,000 ML IV SCH (17:34)
[2018-05-18] MEDS: PANTOPRAZOLE 40 MG TABLET PO SCH (17:34)
--- NOTE | 2018-05-18 17:39 | XR ---
EXAMINATION TYPE: XR chest 2V DATE OF EXAM: 05/18/2018 COMPARISON: 05/14/2018 and 05/12/2018 HISTORY: Hypercalcemia. Atelectasis. Follow-up exam. TECHNIQUE: Frontal and lateral views of the chest are obtained. FINDINGS: Is redemonstration of biapical lucency and pulmonary hyperinflation compatible with underl jb COPD with flattening of the diaphragms and increased retrosternal airspace on the lateral view. Left basilar patchy opacity is unchanged from the prior. No sizable pleural effusion or pneumothorax. Osseous demineralization is seen throughout with slight midthoracic vertebral body height loss uncha nged from the prior IMPRESSION: Persistent patchy left basilar opacity favored to represent atelectasis with underlying COPD.
[2018-05-18] MEDS: ATORVASTATIN 80 MG TAB PO SCH (20:21)
[2018-05-18 21:13] LABS: Glucose,Whole Blood 188 mg/dL (75-99)
[2018-05-19] MEDS: HYDROcodone/APAP 5-325MG 1 EACH TAB PO PRN (00:29)
[2018-05-19] MEDS: INSULIN ASPART 100 UNIT/ML 1 ML 10 ML VIAL SQ SCH ×4 (05:46→20:34)
[2018-05-19] MEDS: PANTOPRAZOLE 40 MG TABLET PO SCH ×2 (05:48→17:23)
[2018-05-19] MEDS: SODIUM CHLORIDE 0.9% 1,000 ML IV SCH (05:48)
[2018-05-19 06:36] LABS: Glucose,Whole Blood 146 mg/dL (75-99)
[2018-05-19 07:37] LABS: Anisocytosis Slight; HGB 7.6 gm/dL (13.0-17.5); Hypochromasia Moderate; MCH 29.6 pg (25.0-35.0); MCHC 31.9 g/dL (31.0-37.0); MCV 92.8 fL (80.0-100.0); Mean Platelet Volume 10.7; RBC 2.58 m/uL (4.30-5.90); RDW 18.6 % (11.5-15.5); WBC 2.4 k/uL (3.8-10.6)
[2018-05-19 07:40] LABS: Platelet Count 83 k/uL (150-450)
[2018-05-19 07:50] LABS: Calcium 10.3 mg/dL (8.4-10.2); Potassium 3.8 mmol/L (3.5-5.1)
[2018-05-19 07:55] LABS: INR 1.6 (<1.2); Prothrombin Time 14.5 sec (9.0-12.0)
[2018-05-19] MEDS ORDERED: FUROSEMIDE 10 MG/ML 4 ML VIAL IV STA (07:58)
[2018-05-19 08:25] LABS: Eosinophils # (M) 0.02 k/uL (0-0.7); Lymphocytes # (M) 1.08 k/uL (1.0-4.8); Monocytes # (M) 0.17 k/uL (0-1.0); Neutrophils # (M) 1.13 k/uL (1.3-7.7); Neutrophils % (M) 47 %; Nucleated Red Blood Cells 0 /100 WBC (0-0); Total Cells Counted 100
[2018-05-19 08:26] LABS: Large Platelets Present; Poikilocytosis (M) Present
[2018-05-19] MEDS ORDERED: SODIUM CHLORIDE 0.9% 1,000 ML IV SCH (08:30)
[2018-05-19] MEDS: AMPICILLIN-SULBACTAM 1.5 GM in SODIUM CHLORIDE 0.9% 50 ML IVPB SCH (08:50)
[2018-05-19] MEDS: NIFEdipine XL 30 MG TAB.ER.24 PO SCH (08:51)
[2018-05-19] MEDS: TAMSULOSIN 0.4 MG CAP.ER.24H PO SCH (08:51)
[2018-05-19] MEDS: HYDROcodone/APAP 10-325MG 1 EACH TAB PO PRN ×3 (08:52→20:35)
[2018-05-19] MEDS: IPRATROPIUM-ALBUTEROL 3 ML NEB INHALATION SCH ×4 (09:10→19:55)
--- NOTE | 2018-05-19 10:29 | P.PN ---
Subjective Patient is seen in follow-up for acute kidney injury on chronic kidney disease and hypercalcemia. Renal function is improved with creatinine of 3.18 today. Calcium level is also down to 10.3 today. Patient received IV fluids last night. Oral intake is fair. Denies vomiting. He had 1 episode of loose bowel movement this morning. Does get dyspneic with exertion. Vital signs are stable. General: The patient appeared well nourished and normally developed. HEENT: Head exam is unremarkable. Neck is without jugular venous distension. LUNGS: Lungs are clear to auscultation and percussion. Breath sounds decreased. HEART: Rate and Rhythm are regular. First and second heart sounds normal. No murmurs, rubs or gallops. ABDOMEN: Abdominal exam reveals normal bowel sounds. Non-tender and non- distended. No evidence of peritonitis. EXTREMITITES: No clubbing, cyanosis, or edema. Objective - Vital Signs Vital signs: Vital Signs Temp 97.8 F 05/19/18 08:45 Pulse 85 05/19/18 08:45 Resp 20 05/19/18 08:45 BP 153/67 05/19/18 08:45 Pulse Ox 98 05/19/18 08:45 Intake & Output 05/18/18 05/19/18 05/19/18 18:59 06:59 18:59 Intake Total 600 240 Output Total 575 950 Balance -575 600 -710 Intake: IV 600 Sodium Chloride 0.9% 1, 600 000 ml @ 20 mls/hr IV . Q24H [facility] Rx#:[id number] Oral 240 Output: Urine 575 950 Other: Voiding Method Indwelling Catheter Indwelling Catheter # Bowel Movements 1 - Labs CBC & Chem 7: 05/19/18 07:00 05/19/18 07:00 Labs: Abnormal Lab Results - Last 24 Hours (Table) 05/18/18 05/18/18 05/18/18 Range/Units 11:14 11:22 17:17 WBC (3.8-10.6) k/uL RBC (4.30-5.90) m/uL Hgb (13.0-17.5) gm/dL Hct (39.0-53.0) % RDW (11.5-15.5) % Plt Count (150-450) k/uL Neutrophils # (Manual) (1.3-7.7) k/uL PT 14.2 H (9.0-12.0) sec INR 1.5 H (<1.2) BUN (9-20) mg/dL Creatinine (0.66-1.25) mg/dL Glucose (74-99) mg/dL POC Glucose (mg/dL) 135 H 140 H (75-99) mg/dL Calcium (8.4-10.2) mg/dL 05/18/18 05/19/18 05/19/18 Range/Units 21:12 05:44 07:00 WBC (3.8-10.6) k/uL RBC (4.30-5.90) m/uL Hgb (13.0-17.5) gm/dL Hct (39.0-53.0) % RDW (11.5-15.5) % Plt Count (150-450) k/uL Neutrophils # (Manual) (1.3-7.7) k/uL PT 14.5 H (9.0-12.0) sec INR 1.6 H (<1.2) BUN (9-20) mg/dL Creatinine (0.66-1.25) mg/dL Glucose (74-99) mg/dL POC Glucose (mg/dL) 188 H 146 H (75-99) mg/dL Calcium (8.4-10.2) mg/dL 05/19/18 05/19/18 Range/Units 07:00 07:00 WBC 2.4 L (3.8-10.6) k/uL RBC 2.58 L (4.30-5.90) m/uL Hgb 7.6 L (13.0-17.5) gm/dL Hct 24.0 L (39.0-53.0) % RDW 18.6 H (11.5-15.5) % Plt Count 83 L (150-450) k/uL Neutrophils # (Manual) 1.13 L (1.3-7.7) k/uL PT (9.0-12.0) sec INR (<1.2) BUN 29 H (9-20) mg/dL Creatinine 3.18 H (0.66-1.25) mg/dL Glucose 144 H (74-99) mg/dL POC Glucose (mg/dL) (75-99) mg/dL Calcium 10.3 H (8.4-10.2) mg/dL Assessment and Plan Plan: Assessment: 1. Nonoliguric acute kidney injury secondary to hypercalcemia-induced ATN and UTI. Creatinine better at 3.18 today. 2. Hypercalcemia which is non-PTH mediated. Noted to have elevated lambda light chains. Calcium level 10.3 today. He did receive a dose of pamidronate this admission as well as IV Lasix. 3. Systolic CHF with ejection fraction of 45-50% with severe mitral regurgitation and moderate to severe tricuspid regurgitation. 4. UTI. Urine culture positive for enterococcus. Maintained on IV antibiotics. 5. Chronic kidney disease stage IV with baseline creatinine in the range of 2- 2.4. 6. Anemia of chronic kidney disease. Iron deficiency noted. Maintained on Aranesp. Plan: Hep-Lock IV fluids. Status post IV Lasix 40 mg this morning. Follow-up multiple myeloma workup as well as 1,25 vitamin D, PTH related peptide and Aidan level. Diaz catheter to be removed today. Monitor serial postvoid residuals. Encourage oral intake. Repeat electrolytes in the morning. IV iron 2 doses.
--- NOTE | 2018-05-19 10:40 | CDI ---
Last Revision, May 2017 Documentation Clarification Form Date: 05/20/18 From: Alicja Martínez RN Admit Date: 05/11/2018 11:40:00 AM Patient Name: Rome Olguin Visit Number: [id number] ATTENTION: The Clinical Documentation Specialists (CDI) and [facility] Coding Staff appreciate your assistance in clarifying documentation. Please respond to the clarification below the line at the bottom and electronically sign. The CDI & [facility] Coding staff will review the response and follow-up if needed. Please note: Queries are made part of the Legal Health Record. If you have any questions, please contact the author of this message via ITS. Chance Landaverde MD, Can you please render your opinion on the following documentation? Patient admitted with Anemia, acute on chronic renal failure, dehydration, UTI, and hypercalcemia. History/Risk Factors: acute respiratory failure, acute CHF diastolic, chronic a fib, acute on chronic renal failure, COPD, CKD 4, emphysema, anemia, DM Clinical Indicators: Consult 05/14: Pt. reports fatigue, poor appetite, weakness Per RD patient is refusing meals reports expressing depressed thoughts and poor appetite, pt. has stage 1 pressure ulcer Labs: Albumin 2.9, Total Protein8.4 Current BMI: 23.8 Weight Loss: 50lb weight loss since Jan. per Pt. ED note: dehydration Treatment: Dietary Consult: yes Diet per RD: Carbohydrate modified, fat modified, mineral modified, heart healthy Supplements: Glucerna and Magic Cups Lab monitoring: protein, pre-albumin and albumin In your professional opinion, can you please clarify if these findings signify one of the following conditions? Mild Protein-Calorie Malnutrition Moderate Protein-Calorie Malnutrition Severe Protein-Calorie Malnutrition Other condition, please specify Unable to determine MTDD
[2018-05-19 11:53] LABS: Glucose,Whole Blood 181 mg/dL (75-99)
[2018-05-19] MEDS: SODIUM FERRIC GLUCONAT-SUCROSE 125 MG in SODIUM CHLORIDE 0.9% 100 ML IVPB SCH (12:46)
[2018-05-19 13:41] LABS: Protein, Total 6.3 g/dL (6.2-8.2)
--- NOTE | 2018-05-19 14:08 | P.PN ---
Subjective Progress Note Date: 05/19/18 Principal diagnosis: MDS, Myelofibrosis Objective - Vital Signs Vital signs: Vital Signs Temp 97.5 F L 05/19/18 12:00 Pulse 85 05/19/18 12:00 Resp 16 05/19/18 12:00 BP 147/68 05/19/18 12:00 Pulse Ox 99 05/19/18 12:00 Intake & Output 05/18/18 05/19/18 05/19/18 18:59 06:59 18:59 Intake Total 600 240 Output Total 575 950 Balance -575 600 -710 Intake: IV 600 Sodium Chloride 0.9% 1, 600 000 ml @ 20 mls/hr IV . Q24H FRANCISCO Rx#:[id number] Oral 240 Output: Urine 575 950 Other: Voiding Method Indwelling Catheter Indwelling Catheter Indwelling Catheter # Bowel Movements 1 - Exam Constitutional General appearance: no acute distress - EENT Eyes: EOMI, PERRLA ENT: hearing grossly normal, normal oropharynx - Neck Neck: no lymphadenopathy - Respiratory Respiratory: bilateral: diminished, prolonged expiration - Cardiovascular Rhythm: regular Heart sounds: normal: S1, S2 - Gastrointestinal General gastrointestinal: normal bowel sounds, soft - Integumentary Changes of chronic venous insufficiency, and dry skin on both lower extremities - Neurologic Neurologic: CNII-XII intact - Musculoskeletal Musculoskeletal: generalized weakness, strength equal bilaterally - Psychiatric Psychiatric: A&O x's 3, appropriate affect, intact judgment & insight - Labs CBC & Chem 7: 05/19/18 07:00 05/19/18 07:00 Labs: Abnormal Lab Results - Last 24 Hours (Table) 05/18/18 05/18/18 05/19/18 Range/Units 17:17 21:12 05:44 WBC (3.8-10.6) k/uL RBC (4.30-5.90) m/uL Hgb (13.0-17.5) gm/dL Hct (39.0-53.0) % RDW (11.5-15.5) % Plt Count (150-450) k/uL Neutrophils # (Manual) (1.3-7.7) k/uL PT (9.0-12.0) sec INR (<1.2) BUN (9-20) mg/dL Creatinine (0.66-1.25) mg/dL Glucose (74-99) mg/dL POC Glucose (mg/dL) 140 H 188 H 146 H (75-99) mg/dL Calcium (8.4-10.2) mg/dL 05/19/18 05/19/18 05/19/18 Range/Units 07:00 07:00 07:00 WBC 2.4 L (3.8-10.6) k/uL RBC 2.58 L (4.30-5.90) m/uL Hgb 7.6 L (13.0-17.5) gm/dL Hct 24.0 L (39.0-53.0) % RDW 18.6 H (11.5-15.5) % Plt Count 83 L (150-450) k/uL Neutrophils # (Manual) 1.13 L (1.3-7.7) k/uL PT 14.5 H (9.0-12.0) sec INR 1.6 H (<1.2) BUN 29 H (9-20) mg/dL Creatinine 3.18 H (0.66-1.25) mg/dL Glucose 144 H (74-99) mg/dL POC Glucose (mg/dL) (75-99) mg/dL Calcium 10.3 H (8.4-10.2) mg/dL 05/19/18 Range/Units 11:51 WBC (3.8-10.6) k/uL RBC (4.30-5.90) m/uL Hgb (13.0-17.5) gm/dL Hct (39.0-53.0) % RDW (11.5-15.5) % Plt Count (150-450) k/uL Neutrophils # (Manual) (1.3-7.7) k/uL PT (9.0-12.0) sec INR (<1.2) BUN (9-20) mg/dL Creatinine (0.66-1.25) mg/dL Glucose (74-99) mg/dL POC Glucose (mg/dL) 181 H (75-99) mg/dL Calcium (8.4-10.2) mg/dL Assessment and Plan Plan: (1) Pancytopenia Secondary to MDS, underlying Myelofibrosis Narrative/Plan: - This is due to underlying marrow disorder (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 - Chronic kidney disease also contributing to his anemia. - Leukopenia - Are currently in safe range, no changes since admission, remain stable. - On Procrit as outpatient, hemoglobin has mostly been in the 9 range as outpatient. - With acute illness and worsening creatinine per D. Georgette continue to hold Procrit while inpatient. Transfuse with Hgb less than 7, no transfusion required today. - Continue to monitor counts. - Given underlying marrow compromise, the patient's counts can drop significantly with ongoing infection/inflammation. Continue daily CBC with diff and supportive treatment as needed - If the patient recovers and can be discharged within a comparatively short period of time, then we would not recommend giving Procrit during hospitalization since this effectiveness may be reduced with ongoing acute inflammation in any case Current Visit: Yes Status: Acute Code(s): D64.9 - ANEMIA, UNSPECIFIED SNOMED Code(s): 863059420 (2) Urinary tract infection Narrative/Plan: - Continue treatment per admitting service. Current Visit: Yes Status: Acute Code(s): N39.0 - URINARY TRACT INFECTION, SITE NOT SPECIFIED SNOMED Code(s): 21703792
[2018-05-19 14:44] VITALS: BMI 23.8
[2018-05-19 17:00] LABS: Glucose,Whole Blood 136 mg/dL (75-99)
[2018-05-19] MEDS: CIPROFLOXACIN HCL 250 MG TAB PO SCH (17:23)
[2018-05-19] MEDS: ALPRAZolam 0.25 MG TAB PO PRN (20:35)
[2018-05-19] MEDS: ATORVASTATIN 80 MG TAB PO SCH (20:35)
[2018-05-19 20:42] LABS: Glucose,Whole Blood 221 mg/dL (75-99)
--- NOTE | 2018-05-20 01:43 | PN ---
PROGRESS NOTE CHIEF COMPLAINT: Re-evaluation. HISTORY OF PRESENT ILLNESS: This 77-year-old gentleman was admitted to the hospital with a urinary tract infection. The patient also had hypercalcemia and had exacerbation of his congestive cardiac failure secondary to some IV fluids. The patient also has chronic kidney disease, stage IV, bordering on end-stage renal disease. The patient is followed by Nephrology, who put him on IV fluids at 75 mL/hour yesterday with discontinuing of his Lasix because of worsening of his renal status. The patient this morning just after breakfast says he has been having difficulty catching his breath. The lungs, though, sound relatively clear. Will give the patient a dose of Lasix to see if that will help. He had a Diaz catheter placed because he was having difficulty urinating. The patient had some urinary retention. This has resolved with a Diaz catheter. The patient also has been on IV antibiotics for a urinary tract infection. The patient, as mentioned above, otherwise is more alert. He had a subendocardial MO. Overall, patient's condition is poor. I have discussed with him regarding hospice care. The patient is strongly considering that. He had some questions which have been answered. The patient's general condition did settle down today. Hopefully in the next 24 to 48 hours he will be discharged, if he is agreeable, under hospice care. Patient's prognosis remains guarded. REVIEW OF SYSTEMS: NEURO: Denies any headaches, dizziness. PSYCH: Some anxiety. CARDIAC: Denies chest pain, angina, palpitations. RESPIRATORY: Present complaint of shortness of breath, some cough. No hemoptysis. He does bring up some dark-colored sputum. GI: No nausea, vomiting, abdominal pain, diarrhea. No bowel movement. : No symptoms of dysuria or hematuria. He has an IDC. EXTREMITIES: Denies any edema. Pain at the heels. CONSTITUTIONAL: No fever, chills. PHYSICAL EXAMINATION: A 77-year-old appearing chronically ill. Complaining of shortness of breath at present. Vital signs reveal temperature 97.8, pulse 85, respirations 20, blood pressure 153/67, pulse ox 98% on 3 L. HEENT: Normocephalic. NECK: Supple. One plus JVD. CHEST EXAMINATION: Generalized decreased air flow. Occasional rhonchi. No wet crackles appreciated. CARDIAC: Distant heart sounds S1, S2 with no gallops. Irregularly irregular rhythm. ABDOMEN: Soft. Bowel sounds present. Extremities reveal trace edema. NEUROLOGIC: Awake, alert, oriented x3 with well-coordinated movements. LABORATORY ASSESSMENT: Hemoglobin 7.6, white count 2.4, platelet count 83. INR 1.6. BUN 29, creatinine 3.18. Electrolytes are normal. Glucose 144, calcium 10.3, protein 6.3. Free [place] and Lambda chains are elevated. ASSESSMENT: 1. Acute on chronic congestive cardiac failure secondary to systolic dysfunction and diastolic dysfunction. 2. Status post subendocardial myocardial infarction. 3. Myelodysplastic syndrome. 4. Chronic kidney disease, stage V/end-stage renal disease. 5. Diabetes mellitus. 6. Gastrointestinal bleeding, resolved. 7. Acute urinary retention. On Diaz catheter. 8. Urinary tract infection. 9. Chronic obstructive pulmonary disease. 10.Hypercalcemia. PLAN: The patient at present is stable. Continue present medical regimen. Patient's condition was discussed with the patient. Prognosis is guarded. We will give the patient Lasix 1 dose this morning. I have discussed this with the security shift manager. Potential discharge in the next 24 to 48 if it is done under hospice services if patient is agreeable. MMODL / IJN: [id number] /
--- NOTE | 2018-05-20 01:43 | PN ---
PROGRESS NOTE This is a re-dictation on a progress note dated 05/13/2018. The previously dictated note has multiple blanks. CHIEF COMPLAINT: Re-evaluation. HISTORY OF PRESENT ILLNESS: This 77-year-old gentleman was admitted to the hospital because of dysuria, feeling poorly, and suggestion of urinary tract infection. Following admission he did complain of some chest pain. The patient had elevated troponin suggestive of subendocardial CT. He has underlying history of coronary artery disease, COPD, CHF and chronic kidney disease. He also had complained of dark-colored stool which was guaiac-positive. His INR was 6.6. He has had previous history of gastroesophageal reflux. Denies any symptoms of heartburn. The patient was given some vitamin K and his INR is down to 2.8 today. The patient's renal functions remain stable. His calcium is down to 12.2. He had hypercalcemia, probably related to the use of calcitriol. REVIEW OF SYSTEMS: NEURO: Denies any headaches or dizziness. PSYCH: Good eye contact. CONSTITUTIONAL: No fever or chills. CARDIAC: Denies chest pain, angina, palpitations now. He does have a history of chronic atrial fibrillation. RESPIRATORY: Chronic shortness of breath and chronic cough. No hemoptysis. GI: No nausea, vomiting. Appetite poor. No abdominal pain. No bowel movements. : Denies symptoms of dysuria now. He does have frequency and urgency. EXTREMITIES: Denies pain. PHYSICAL EXAMINATION: Pleasant gentleman, at present in no distress. VITAL SIGNS: Stable as recorded. Blood pressure was 130/70, pulse 86, irregular, afebrile. Neck reveals no JVD. Neck is supple. Oral cavity is dry. Chest has generalized decreased air flow with occasional rhonchi. CARDIAC: Distant heart sounds S1, S2 with no gallops. Systolic murmur 2/6, left sternal border. Heart rate is irregularly irregular. ABDOMEN: Soft. Bowel sounds active. Extremities reveal markedly decreased pedal pulses. No edema. Neurologically awake, alert, oriented with well-coordinated movements. LABORATORY ASSESSMENT: Hemoglobin 7.2, INR 2.8. Electrolytes are normal. Calcium down to 12.2. Renal function is stable. ASSESSMENT: 1. Status post subendocardial myocardial infarction. 2. Urinary tract infection. 3. Chronic kidney disease, stage IV. 4. Hypercalcemia. 5. Gastrointestinal bleeding. 6. Hyperanticoagulated status. 7. Anemia secondary to chronic and acute blood loss. 8. Chronic atrial fibrillation. 9. Peripheral arterial disease. 10.Diabetes mellitus. 11.Chronic obstructive pulmonary disease. 12.Chronic respiratory failure. 13.Myelodysplastic syndrome. PLAN: The patient is stable and somewhat improved today. Continue present medical regimen. Prognosis remains guarded. His Coumadin will be on hold. Repeat CBC in the morning. Transfuse if hemoglobin less than 7. Nephrology will be consulted. Patient's status was discussed with the patient. MMODL / IJN: [id number] /
[2018-05-20 06:01] LABS: Glucose,Whole Blood 97 mg/dL (75-99)
[2018-05-20] MEDS: INSULIN ASPART 100 UNIT/ML 1 ML 10 ML VIAL SQ SCH ×4 (06:01→21:28)
[2018-05-20 06:19] LABS: Calcium 10.6 mg/dL (8.4-10.2); Potassium 3.4 mmol/L (3.5-5.1)
[2018-05-20] MEDS: PANTOPRAZOLE 40 MG TABLET PO SCH ×2 (06:28→18:40)
[2018-05-20] MEDS: HYDROcodone/APAP 10-325MG 1 EACH TAB PO PRN (08:17)
[2018-05-20] MEDS: ALPRAZolam 0.25 MG TAB PO PRN (08:17)
[2018-05-20] MEDS: CIPROFLOXACIN HCL 250 MG TAB PO SCH (08:17)
[2018-05-20] MEDS: TAMSULOSIN 0.4 MG CAP.ER.24H PO SCH (08:17)
[2018-05-20] MEDS: NIFEdipine XL 30 MG TAB.ER.24 PO SCH (08:17)
[2018-05-20] MEDS: IPRATROPIUM-ALBUTEROL 3 ML NEB INHALATION SCH ×4 (08:45→20:48)
[2018-05-20] MEDS: SODIUM FERRIC GLUCONAT-SUCROSE 125 MG in SODIUM CHLORIDE 0.9% 100 ML IVPB SCH (08:55)
[2018-05-20 11:44] LABS: Glucose,Whole Blood 179 mg/dL (75-99)
[2018-05-20] MEDS ORDERED: POTASSIUM CHLORIDE ER 20 MEQ TAB.ER PO STA (12:32)
--- NOTE | 2018-05-20 12:57 | P.PN ---
Subjective Patient is seen in follow-up for acute kidney injury on chronic kidney disease and hypercalcemia. Renal function is stable today. Calcium level is up to 10.6 today. Oral intake is fair. Denies vomiting. Diaz catheter removed. He has been voiding. Vital signs are stable. General: The patient appeared well nourished and normally developed. HEENT: Head exam is unremarkable. Neck is without jugular venous distension. LUNGS: Lungs are clear to auscultation and percussion. Breath sounds decreased. HEART: Rate and Rhythm are regular. First and second heart sounds normal. No murmurs, rubs or gallops. ABDOMEN: Abdominal exam reveals normal bowel sounds. Non-tender and non- distended. No evidence of peritonitis. EXTREMITITES: No clubbing, cyanosis, or edema. Objective - Vital Signs Vital signs: Vital Signs Temp 97.5 F L 05/20/18 11:35 Pulse 86 05/20/18 11:35 Resp 20 05/20/18 11:35 BP 147/75 05/20/18 11:35 Pulse Ox 98 05/20/18 11:35 Intake & Output 05/19/18 05/20/18 05/20/18 18:59 06:59 18:59 Intake Total 822 240 Output Total 1750 900 Balance -928 -900 240 Weight 73.2 kg 69.1 kg Intake: Oral 822 240 Output: Urine 1750 900 Straight 750 Other: Voiding Method Urinal Urinal # Voids 1 - Labs CBC & Chem 7: 05/19/18 07:00 05/20/18 05:40 Labs: Abnormal Lab Results - Last 24 Hours (Table) 05/19/18 05/19/18 05/19/18 Range/Units 07:00 07:00 16:30 Potassium (3.5-5.1) mmol/L BUN (9-20) mg/dL Creatinine (0.66-1.25) mg/dL POC Glucose (mg/dL) 136 H (75-99) mg/dL Calcium (8.4-10.2) mg/dL Angiotensin Convert Enz 55 H (8-52) U/L Free [place] LC, Quant 24.60 H (0.33-1.94) mg/dL Free Lambda LC, Quant 26.30 H (0.57-2.63) mg/dL 1105/20/18 05/20/18 Range/Units 20:31 05:40 11:30 Potassium 3.4 L (3.5-5.1) mmol/L BUN 27 H (9-20) mg/dL Creatinine 3.15 H (0.66-1.25) mg/dL POC Glucose (mg/dL) 221 H 179 H (75-99) mg/dL Calcium 10.6 H (8.4-10.2) mg/dL Angiotensin Convert Enz (8-52) U/L Free [place] LC, Quant (0.33-1.94) mg/dL Free Lambda LC, Quant (0.57-2.63) mg/dL Assessment and Plan Plan: Assessment: 1. Nonoliguric acute kidney injury secondary to hypercalcemia-induced ATN and UTI. Creatinine stable today. 2. Hypercalcemia which is non-PTH mediated. Noted to have elevated lambda light chains however kappa to lambda LC ratio is not high. DANIEL 55. Calcium level 10.6 today. He did receive a dose of pamidronate this admission as well as IV Lasix. 3. Systolic CHF with ejection fraction of 45-50% with severe mitral regurgitation and moderate to severe tricuspid regurgitation. 4. UTI. Urine culture positive for enterococcus. Maintained on IV antibiotics. 5. Chronic kidney disease stage IV with baseline creatinine in the range of 2- 2.4. 6. Anemia of chronic kidney disease. Iron deficiency noted. Maintained on Aranesp. 7. Hypokalemia secondary to diuresis. Plan: Hep-Lock IV fluids. Status post IV Lasix 40 mg this morning. Follow-up multiple myeloma workup as well as 1,25 vitamin D, PTH related peptide. Diaz catheter to be removed today. Monitor serial postvoid residuals. Encourage oral intake. Repeat electrolytes in the morning. IV iron 2 doses. I will given 2 doses of calcitonin today. Replace potassium. 40 mEq today.
[2018-05-20] MEDS: CALCITONIN INJ 200 UNIT/ML (MDV) VIAL SQ SCH ×2 (14:24→21:27)
[2018-05-20 16:45] LABS: Glucose,Whole Blood 81 mg/dL (75-99)
--- NOTE | 2018-05-20 19:17 | P.PN ---
Subjective Progress Note Date: 05/20/18 Principal diagnosis: MDS, Myelofibrosis No acute complaints. Objective - Vital Signs Vital signs: Vital Signs Temp 97.5 F L 05/20/18 11:35 Pulse 91 05/20/18 16:00 Resp 20 05/20/18 16:00 BP 150/81 05/20/18 16:00 Pulse Ox 98 05/20/18 16:00 Intake & Output 05/20/18 05/20/18 05/21/18 06:59 18:59 06:59 Intake Total 600 Output Total 900 100 Balance -900 500 Weight 69.1 kg Intake: Oral 600 Output: Urine 900 100 Other: Voiding Method Urinal # Voids 1 - Exam Constitutional General appearance: no acute distress - EENT Eyes: EOMI, PERRLA ENT: hearing grossly normal, normal oropharynx - Neck Neck: no lymphadenopathy - Respiratory Respiratory: bilateral: diminished, prolonged expiration - Cardiovascular Rhythm: regular Heart sounds: normal: S1, S2 - Gastrointestinal General gastrointestinal: normal bowel sounds, soft - Integumentary Changes of chronic venous insufficiency, and dry skin on both lower extremities - Neurologic Neurologic: CNII-XII intact - Musculoskeletal Musculoskeletal: generalized weakness, strength equal bilaterally - Psychiatric Psychiatric: A&O x's 3, appropriate affect, intact judgment & insight - Labs CBC & Chem 7: 05/19/18 07:00 05/20/18 05:40 Labs: Abnormal Lab Results - Last 24 Hours (Table) 05/19/18 05/19/18 05/20/18 Range/Units 07:00 20:31 05:40 Potassium 3.4 L (3.5-5.1) mmol/L BUN 27 H (9-20) mg/dL Creatinine 3.15 H (0.66-1.25) mg/dL POC Glucose (mg/dL) 221 H (75-99) mg/dL Calcium 10.6 H (8.4-10.2) mg/dL Angiotensin Convert Enz 55 H (8-52) U/L 05/20/18 Range/Units 11:30 Potassium (3.5-5.1) mmol/L BUN (9-20) mg/dL Creatinine (0.66-1.25) mg/dL POC Glucose (mg/dL) 179 H (75-99) mg/dL Calcium (8.4-10.2) mg/dL Angiotensin Convert Enz (8-52) U/L Assessment and Plan Plan: (1) Pancytopenia Secondary to MDS, underlying Myelofibrosis Narrative/Plan: - This is due to underlying marrow disorder (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 - Chronic kidney disease also contributing to his anemia. - Leukopenia - Are currently in safe range, no changes since admission, remain stable. - On Procrit as outpatient, hemoglobin has mostly been in the 9 range as outpatient. - With acute illness and worsening creatinine per D. Georgette continue to hold Procrit while inpatient. Transfuse with Hgb less than 7, no transfusion required today. - Continue to monitor counts. - Given underlying marrow compromise, the patient's counts can drop significantly with ongoing infection/inflammation. Continue daily CBC with diff and supportive treatment as needed - If the patient recovers and can be discharged within a comparatively short period of time, then we would not recommend giving Procrit during hospitalization since this effectiveness may be reduced with ongoing acute inflammation in any case (2) Urinary tract infection Narrative/Plan: - Continue treatment per admitting service. Plan: - Recheck CBC in morning - Transfusions PRN
[2018-05-20 21:24] LABS: Glucose,Whole Blood 119 mg/dL (75-99)
[2018-05-20] MEDS: ATORVASTATIN 80 MG TAB PO SCH (21:26)
--- NOTE | 2018-05-20 23:17 | PN ---
PROGRESS NOTE CHIEF COMPLAINT: Re-evaluation. HISTORY OF PRESENT ILLNESS: This is a 77-year-old gentleman who was admitted to the hospital with a urinary tract infection, noted also to have a subendocardial [place], congestive cardiac failure secondary to systolic and diastolic dysfunction, COPD exacerbation secondary to CHF and GI bleeding associated with anemia, hypercalcemia and chronic kidney disease, stage IV, nearing end-stage renal disease. The patient also had evidence of obstructive element, for which he had a Diaz catheter placed. The patient's general condition has stabilized. The patient is still awaiting appropriate arrangements for him still debating whether they should be under hospice or not. I have strongly recommended palliative care for him. The patient has reached a point where he has multi-organ disease which is cardiac, lungs, diabetes mellitus, chronic kidney disease, peripheral arterial disease. His only good functioning part of him is his mental capacity, which is intact. The patient is able to make very appropriate decisions. I had a long talk of at least 20 minutes with him today regarding what hospice is and what is involved in hospice care. His life expectancy is definitely less than 6 months. The patient is trying to work out his personal plans. However, he tells me his friends are going to take care of him, but it does not appear that he realizes what his friends will need to do. The patient basically needs one-person assist to get up from the bed to the bedside commode. He is planning to go home; whether to go home with hospice or not, he is going to make a decision by tomorrow. REVIEW OF SYSTEMS: NEURO: Denies any headaches, dizziness. PSYCH: No anxiety. Some apprehension. CARDIAC: Denies chest pain, angina, palpitations. RESPIRATORY: Improved shortness of breath. GI: No nausea, vomiting, abdominal pain. No bowel movement. : Some dysuria. No hematuria. Does have frequency, with only limited urine output at a time. EXTREMITIES: Denies edema. Has some pain in the heels. The patient has no breakdown in the skin at the site of the ankles. NEUROLOGICAL: Awake, alert, oriented x3 with well-coordinated movements. LABORATORY ASSESSMENT: Improved renal function. Electrolytes are essentially normal. BUN 27, creatinine 3.15. GFR is up to 18. Calcium is down to 10.6. Blood sugar 97. ASSESSMENT: 1. Urinary tract infection, on medications. 2. Chronic kidney disease, stage IV. 3. Hypercalcemia, improving. 4. Status post subendocardial myocardial infarction. 5. Congestive cardiac failure, improved. 6. Chronic obstructive pulmonary disease exacerbation, improved. 7. Diabetes mellitus with adequately controlled blood sugars. 8. Decreased nutritional status due to multiple chronic illnesses. PLAN: Continue present medical regimen. As mentioned above, the patient makes decisions regarding recommendation of palliative hospice care. The patient's prognosis remains guarded. This patient due to his multiple illnesses is apt to have repeated admissions plus, since he has nobody at home to take care of him, and since he would not go to nursing facilities, he expects prolonged hospitalizations. Patient's condition is guarded. MMNICOLL / RAN: [id number] /
[2018-05-21 00:02] VITALS: RESP 18
[2018-05-21 06:12] LABS: Glucose,Whole Blood 107 mg/dL (75-99)
[2018-05-21] MEDS: INSULIN ASPART 100 UNIT/ML 1 ML 10 ML VIAL SQ SCH ×2 (06:32→11:34)
[2018-05-21] MEDS: PANTOPRAZOLE 40 MG TABLET PO SCH (06:33)
[2018-05-21 07:06] LABS: Albumin 2.3 g/dL (3.5-5.0); Magnesium 1.4 mg/dL (1.6-2.3); Potassium 4.6 mmol/L (3.5-5.1); Total Bilirubin 0.7 mg/dL (0.2-1.3)
[2018-05-21] MEDS: IPRATROPIUM-ALBUTEROL 3 ML NEB INHALATION SCH ×2 (07:46→11:25)
[2018-05-21 08:06] LABS: Anisocytosis Slight; HCT 24.5 % (39.0-53.0); HGB 7.5 gm/dL (13.0-17.5); Hypochromasia Moderate; MCH 28.6 pg (25.0-35.0); MCHC 30.7 g/dL (31.0-37.0); MCV 93.1 fL (80.0-100.0); Mean Platelet Volume 10.8; RBC 2.63 m/uL (4.30-5.90); RDW 18.9 % (11.5-15.5); WBC 2.9 k/uL (3.8-10.6)
[2018-05-21 08:19] LABS: Platelet Count 78 k/uL (150-450)
[2018-05-21] MEDS: NIFEdipine XL 30 MG TAB.ER.24 PO SCH (08:21)
[2018-05-21] MEDS: CIPROFLOXACIN HCL 250 MG TAB PO SCH (08:21)
[2018-05-21] MEDS: TAMSULOSIN 0.4 MG CAP.ER.24H PO SCH (08:21)
[2018-05-21] MEDS: SODIUM FERRIC GLUCONAT-SUCROSE 125 MG in SODIUM CHLORIDE 0.9% 100 ML IVPB SCH (08:44)
[2018-05-21] MEDS: ALPRAZolam 0.25 MG TAB PO PRN (08:48)
[2018-05-21 08:53] LABS: Band Neutrophils % 1 %; Basophils # (M) 0.03 k/uL (0-0.2); Eosinophils # (M) 0.06 k/uL (0-0.7); Lymphocytes # (M) 1.07 k/uL (1.0-4.8); Monocytes # (M) 0.15 k/uL (0-1.0); Neutrophils % (M) 54 %; Nucleated Red Blood Cells 0 /100 WBC (0-0); Poikilocytosis (M) Present; Rouleaux Present; Total Cells Counted 100
[2018-05-21] MEDS ORDERED: ASPIRIN 81 MG PO SCH (09:00)
[2018-05-21] MEDS: DARBEPOETIN ALFA 60 MCG/0.3 ML SYRINGE SQ SCH (09:21)
[2018-05-21] MEDS: MAGNESIUM SULFATE-D5W PMX 1 GM in DEXTROSE/WATER 1 100ML.BAG IVPB SCH ×2 (10:21→11:22)
[2018-05-21 11:29] LABS: Glucose,Whole Blood 99 mg/dL (75-99)
[2018-05-21 11:38] VITALS: BP 143/69; PULSE 79; TEMP 98.3
[2018-05-21 12:03] LABS: Gamma Globulin 1.17 g/dL (0.70-1.50)
--- NOTE | 2018-05-21 12:48 | P.PN ---
Subjective Patient is seen in follow-up for acute kidney injury on chronic kidney disease and hypercalcemia. Renal function is slightly worse today. Calcium level is 10.0. Patient received 2 doses of calcitonin yesterday. Oral intake is fair. Denies vomiting. Diaz catheter removed. He has been voiding. Vital signs are stable. General: The patient appeared well nourished and normally developed. HEENT: Head exam is unremarkable. Neck is without jugular venous distension. LUNGS: Lungs are clear to auscultation and percussion. Breath sounds decreased. HEART: Rate and Rhythm are regular. First and second heart sounds normal. No murmurs, rubs or gallops. ABDOMEN: Abdominal exam reveals normal bowel sounds. Non-tender and non- distended. No evidence of peritonitis. EXTREMITITES: No clubbing, cyanosis, or edema. Objective - Vital Signs Vital signs: Vital Signs Temp 98.3 F 05/21/18 11:38 Pulse 79 05/21/18 11:38 Resp 18 05/21/18 11:38 BP 143/69 05/21/18 11:38 Pulse Ox 95 05/21/18 11:38 Intake & Output 05/20/18 05/21/18 05/21/18 18:59 06:59 18:59 Intake Total 600 Output Total 100 250 Balance 500 -250 Weight 70 kg Intake: Oral 600 Output: Urine 100 250 Other: Voiding Method Urinal Urinal # Voids 1 - Labs CBC & Chem 7: 05/21/18 06:15 05/21/18 06:15 Labs: Abnormal Lab Results - Last 24 Hours (Table) 05/19/18 05/20/18 05/21/18 Range/Units 07:00 21:21 06:10 WBC (3.8-10.6) k/uL RBC (4.30-5.90) m/uL Hgb (13.0-17.5) gm/dL Hct (39.0-53.0) % MCHC (31.0-37.0) g/dL RDW (11.5-15.5) % Plt Count (150-450) k/uL Chloride (98-107) mmol/L BUN (9-20) mg/dL Creatinine (0.66-1.25) mg/dL Glucose (74-99) mg/dL POC Glucose (mg/dL) 119 H 107 H (75-99) mg/dL Magnesium (1.6-2.3) mg/dL Alkaline Phosphatase (38-126) U/L Albumin (3.5-5.0) g/dL Albumin (PEP) 1.80 L (3.80-4.90) g/dL [id number] 0.53 L (0.60-1.00) g/dL Beta Globulins 2.48 H (0.60-1.30) g/dL 05/21/18 05/21/18 Range/Units 06:15 06:15 WBC 2.9 L (3.8-10.6) k/uL RBC 2.63 L (4.30-5.90) m/uL Hgb 7.5 L (13.0-17.5) gm/dL Hct 24.5 L (39.0-53.0) % MCHC 30.7 L (31.0-37.0) g/dL RDW 18.9 H (11.5-15.5) % Plt Count 78 L (150-450) k/uL Chloride 110 H (98-107) mmol/L BUN 26 H (9-20) mg/dL Creatinine 3.29 H (0.66-1.25) mg/dL Glucose 103 H (74-99) mg/dL POC Glucose (mg/dL) (75-99) mg/dL Magnesium 1.4 L (1.6-2.3) mg/dL Alkaline Phosphatase 132 H (38-126) U/L Albumin 2.3 L (3.5-5.0) g/dL Albumin (PEP) (3.80-4.90) g/dL Vkpwx-2-Nnbpeotld (0.60-1.00) g/dL Beta Globulins (0.60-1.30) g/dL Assessment and Plan Plan: Assessment: 1. Nonoliguric acute kidney injury secondary to hypercalcemia-induced ATN and UTI. Creatinine a little worse today at 3.29. 2. Hypercalcemia which is non-PTH mediated. Noted to have elevated lambda light chains however kappa to lambda LC ratio is not high. DANIEL 55. Calcium level 10.0 today. He did receive a dose of pamidronate this admission as well as 2 doses of calcitonin yesterday. 1,25 D3 normal. 3. Systolic CHF with ejection fraction of 45-50% with severe mitral regurgitation and moderate to severe tricuspid regurgitation. 4. UTI. Urine culture positive for enterococcus. Maintained on IV antibiotics. 5. Chronic kidney disease stage IV with baseline creatinine in the range of 2- 2.4. 6. Anemia of chronic kidney disease. Iron deficiency noted. Maintained on Aranesp. Status post 2 doses of IV iron. 7. Hypokalemia secondary to diuresis. Improved post replacement. 8. Hypomagnesemia secondary to diuresis and poor oral intake. Status post replacement. Plan: Hep-Lock IV fluids. Follow-up multiple myeloma workup as well as PTH related peptide. Encourage oral intake. Repeat electrolytes in the morning. Resume Lasix 40 mg every other day. Patient wants to go home. He is refusing to go to an ECF. Also refusing hospice at this time.
--- NOTE | 2018-06-14 13:02 | P.DS ---
Providers Date of admission: 05/11/18 11:40 Attending physician: Chance Zuñiga Consults: 05/11/18 18:59 Consult Physician Routine Consulting Provider: Emily Gomez Consult Reason/Comments: elevated troponin Do you want consulting provider notified?: Yes 05/13/18 22:18 Consult Physician Routine Consulting Provider: Tessie Rodriguez Consult Reason/Comments: renal failure Do you want consulting provider notified?: Already Contacted 05/14/18 14:55 Consult Physician Urgent Consulting Provider: Aden Palomino Consult Reason/Comments: Myelodysplastic syndrome, pancytopenia Do you want consulting provider notified?: Yes 05/17/18 14:34 Consult Physician Urgent Consulting Provider: Aden Palomino Consult Reason/Comments: Hypercalcemia resistant with the ionized calcium more than 6 underlying occ Do you want consulting provider notified?: Yes Primary care physician: Chance Zuñiga [facility] Course: This 77-year-old gentleman was admitted to the hospital after being brought into the emergency room because of generalized weakness and significant dysuria.. The patient's noted to have evidence of a urinary tract infection, he does have history of BPH and some outlet obstruction symptoms. He also has a history of chronic kidney disease stage IV almost at the verge of end-stage renal disease. He follows with spray cementer on an outpatient and there have been discussions regarding dialysis. Patient also noted to have evidence suggestive of subendocardial NM. He was having some chest pain. The patient does have chronic atrial fibrillation and is on anticoagulation the patient did have dark color stools not melanotic but was guaiac positive. The patient Coumadin was held. Patient also has evidence of congestive cardiac failure which is on a chronic basis secondary to systolic and diastolic dysfunction. He has a history of myeloproliferative disorder. He did use a blood transfusion since his hemoglobin is below 7. Patient did develop urinary retention for which he had a Diaz catheter placed. This helped. Previous history of renal failure on treatment. He did have associated hypercalcemia. Calcitriol was discontinued. Hypercalcemia did improve. Patient has generalized debility with significant weight loss. Patient's due to his multiple medical ailments has occasional point in his life who recommended him palliative care. He is taking this into consideration he did get most of his legal documents in order. He is today and elected to go back home and get extra help. Patient's prognosis continues to remain poor he has underlying history of coronary artery disease, chronic and is currently failure, COPD, myeloproliferative disorder, peripheral arterial disease, diabetes mellitus. And debility patient discharged home with continuation of care. Patient was provided hospice information and provided with home care services. Final diagnosis 1. Urinary tract infection 2. Intermittent urinary retention 3. BPH 4. GI bleeding 5. Anemia secondary to acute blood loss 6. Anemia chronic disease including kidney disease and myeloproliferative disease 7. Myeloproliferative disorder 8. COPD 9. Subendocardial myocardial infarction 10. Chronic atrial fibrillation 11. Anticoagulated status 12. Chronic kidney disease stage IV 13. 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 14. Debility and cachexia 15. 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 Moderate aortic stenosis and regurgitation 18. Severe mitral regurgitation 19. Mild mitral stenosis 20. Mild pulmonary hypertension Patient Condition at Discharge: Fair Plan - Discharge Summary Discharge Rx Participant: No New Discharge Prescriptions: New Metoprolol Tartrate [Lopressor] 12.5 mg PO BID #60 dose Acetaminophen Tab [Tylenol] 650 mg PO Q6HR PRN tab PRN Reason: Mild Pain Or Fever > 100.5 Aspirin 81 mg PO DAILY #0 chew Ciprofloxacin HCl [Cipro] 250 mg PO DAILY tab Darbepoetin Hans [Aranesp] 60 mcg SQ Q7D syringe Ipratropium-Albuterol Nebulize [Duoneb 0.5 mg-3 mg/3 ml Soln] 3 ml INHALATION RT-QID ampul.neb Continue Omeprazole 20 mg PO DAILY Tamsulosin [Flomax] 0.4 mg PO DAILY Atorvastatin [Lipitor] 80 mg PO HS Magnesium Oxide 800 mg PO DAILY ALPRAZolam [Xanax] 0.25 mg PO TID PRN PRN Reason: Anxiety Insulin Aspart Protam & Aspart [NovoLOG MIX 70-30 Flexpen] 10 unit SQ AC-BID #1 pen NIFEdipine XL [Procardia XL] 30 mg PO DAILY tab.er.24 Potassium Chloride [Klor-Con 20] 20 meq PO DAILY Furosemide [Lasix] 40 mg PO DAILY Discharge Medication List ALPRAZolam [Xanax] 0.25 mg PO TID PRN 02/07/18 [History] Atorvastatin [Lipitor] 80 mg PO HS 02/07/18 [History] Magnesium Oxide 800 mg PO DAILY 02/07/18 [History] Omeprazole 20 mg PO DAILY 02/07/18 [History] Tamsulosin [Flomax] 0.4 mg PO DAILY 02/07/18 [History] Insulin Aspart Protam & Aspart [NovoLOG MIX 70-30 Flexpen] 10 unit SQ AC-BID #1 pen 02/11/18 [Rx] NIFEdipine XL [Procardia XL] 30 mg PO DAILY tab.er.24 02/21/18 [Rx] Furosemide [Lasix] 40 mg PO DAILY 05/11/18 [History] Potassium Chloride [Klor-Con 20] 20 meq PO DAILY 05/11/18 [History] Acetaminophen Tab [Tylenol] 650 mg PO Q6HR PRN tab 05/21/18 [Rx] Aspirin 81 mg PO DAILY #0 chew 05/21/18 [Rx] Ciprofloxacin HCl [Cipro] 250 mg PO DAILY tab 05/21/18 [Rx] Darbepoetin Hans [Aranesp] 60 mcg SQ Q7D syringe 05/21/18 [Rx] Ipratropium-Albuterol Nebulize [Duoneb 0.5 mg-3 mg/3 ml Soln] 3 ml INHALATION RT -QID ampul.neb 05/21/18 [Rx] Metoprolol Tartrate [Lopressor] 12.5 mg PO BID #60 dose 05/21/18 [Rx] Follow up Appointment(s)/Referral(s): Chance Zuñiga MD [Primary Care Provider] - 05/27/18 2:15 pm (Saturday) [facility] Visiting Nurse, [NON-STAFF] - Patient Instructions/Handouts: Gastrointestinal Bleeding (DC), Dehydration (DC) , Elevated INR (DC) Discharge Disposition: HOME WITH HOME HEALTH SERVICES
== END 2018-05-21 13:12 | disposition home health service (06) | DRG 689 ==
LOC: EC 09:32 → 4SSUR 11:40 → 4MS4W 13:34 → 3SCARD 05-12 07:25
PROVIDERS: ADMIT Internal Medicine; ATTEND Internal Medicine
DX: N39.0 Urinary tract infection, site not specified (principal); N17.0 Acute kidney failure with tubular necrosis; I21.4 Non-ST elevation (NSTEMI) myocardial infarction; D62 Acute posthemorrhagic anemia; D61.818 Other pancytopenia; D75.81 Myelofibrosis; E87.2 Acidosis; I13.2 Hypertensive heart and chronic kidney disease with heart failure and with stage 5 chronic kidney disease, or end stage renal disease; I25.110 Atherosclerotic heart disease of native coronary artery with unstable angina pectoris; J96.10 Chronic respiratory failure, unspecified whether with hypoxia or hypercapnia; K76.6 Portal hypertension; K92.2 Gastrointestinal hemorrhage, unspecified; N18.5 Chronic kidney disease, stage 5; I50.42 Chronic combined systolic (congestive) and diastolic (congestive) heart failure; C94.6 Myelodysplastic disease, not elsewhere classified; J44.1 Chronic obstructive pulmonary disease with (acute) exacerbation; R64 Cachexia; B95.2 Enterococcus as the cause of diseases classified elsewhere; D63.1 Anemia in chronic kidney disease; E11.22 Type 2 diabetes mellitus with diabetic chronic kidney disease; E11.51 Type 2 diabetes mellitus with diabetic peripheral angiopathy without gangrene; E11.649 Type 2 diabetes mellitus with hypoglycemia without coma; E78.5 Hyperlipidemia, unspecified; E83.42 Hypomagnesemia; E83.52 Hypercalcemia; E86.0 Dehydration; E86.1 Hypovolemia; E87.6 Hypokalemia; F41.9 Anxiety disorder, unspecified; I08.3 Combined rheumatic disorders of mitral, aortic and tricuspid valves; I48.2 Chronic atrial fibrillation; K21.9 Gastro-esophageal reflux disease without esophagitis; N40.1 Benign prostatic hyperplasia with lower urinary tract symptoms; N39.498 Other specified urinary incontinence; R79.1 Abnormal coagulation profile; T50.2X5A Adverse effect of carbonic-anhydrase inhibitors, benzothiadiazides and other diuretics, initial encounter; Z79.01 Long term (current) use of anticoagulants; Z79.4 Long term (current) use of insulin; Z79.51 Long term (current) use of inhaled steroids; Z79.899 Other long term (current) drug therapy; Z82.3 Family history of stroke; Z86.79 Personal history of other diseases of the circulatory system; Z87.440 Personal history of urinary (tract) infections; Z87.891 Personal history of nicotine dependence; Z95.5 Presence of coronary angioplasty implant and graft; Z79.82 Long term (current) use of aspirin; R33.8 Other retention of urine; E11.42 Type 2 diabetes mellitus with diabetic polyneuropathy; I27.20 Pulmonary hypertension, unspecified; I25.5 Ischemic cardiomyopathy; Z68.22 Body mass index [BMI] 22.0-22.9, adult
CPT/HCPCS: 36415; 71045; 71046; 80048; 80053; 81001; 82164; 82272; 82306; 82330; 82550; 82553; 82607; 82652; 83036; 83519; 83540; 83550; 83605; 83690; 83735; 83883; 83970; 84100; 84165; 84484; 85025; 85027; 85610; 85730; 86334; 86335; 86850; 86900; 86901; 86920; 87040; 87077; 87086; 87186; 93005; 93306; 94640; 94760; 96361; 96365; 96375; 99285

== ENCOUNTER → 2018-06-13 | Outpatient (CLI) | payer MEDICARE, BC ==
[2018-06-13 13:05] LABS: Anisocytosis Moderate; HCT 28.2 % (39.0-53.0); HGB 8.3 gm/dL (13.0-17.5); Hypochromasia Marked; MCH 29.4 pg (25.0-35.0); MCHC 29.5 g/dL (31.0-37.0); Macrocytosis Moderate; Mean Platelet Volume 10.7; Poikilocytosis Slight; RBC 2.82 m/uL (4.30-5.90); RDW 22.3 % (11.5-15.5)
[2018-06-13 13:19] LABS: MCV 99.7 fL (80.0-100.0)
[2018-06-13 13:20] LABS: Platelet Count 84 k/uL (150-450)
[2018-06-13 18:37] LABS: Vitamin D 25 Hydroxy 52.3 ng/mL (30.0-100.0)
[2018-06-13 19:19] LABS: Parathyroid Hormone Intact 13.9 pg/mL (14.0-72.0)
[2018-06-13 19:46] LABS: Albumin 2.7 g/dL (3.80-4.90); Anion Gap 7.1 mmol/L (4.00-12.00); Carbon Dioxide 25.9 mmol/L (21.6-31.8); Phosphorus 3.6 mg/dL (2.4-5.1); Potassium 4.4 mmol/L (3.5-5.5)
== END | disposition home or self-care (01) ==
LOC: LABWHC1 11:45
PROVIDERS: ATTEND Internal Medicine Nephrology
DX: N18.4 Chronic kidney disease, stage 4 (severe) (principal)
CPT/HCPCS: 36415; 80048; 80069; 82306; 83970; 85027

== ENCOUNTER → 2018-10-13 | Outpatient (CLI) | payer MEDICARE, BC ==
[2018-10-13 14:12] LABS: Appearance,Urine Clear (Clear); Bilirubin,Urine Negative (Negative); Blood,Urine Negative (Negative); Color,Urine Yellow; Glucose,Urine (UA) Negative (Negative); Ketones,Urine Negative (Negative); Leukocyte Esterase,Urine Negative (Negative); Mucus,Urine Rare /hpf; Nitrite,Urine Negative (Negative); PH, Urine 5.5 (5.0-8.0); Protein,Urine 1+ (Negative); RBC,Urine 1 /hpf (0-5); Specific Gravity,Urine 1.012 (1.001-1.035); Squamous Epithelial Cell,Urine 1 /hpf (0-4); Urobilinogen,Urine <2.0 mg/dL (<2.0); WBC,Urine <1 /hpf (0-5)
[2018-10-13 14:34] LABS: Anisocytosis Slight; HCT 29.4 % (39.0-53.0); HGB 8.9 gm/dL (13.0-17.5); Hypochromasia Marked; MCH 30.8 pg (25.0-35.0); MCHC 30.3 g/dL (31.0-37.0); MCV 101.4 fL (80.0-100.0); Macrocytosis Moderate; Mean Platelet Volume 12.7; RDW 19.5 % (11.5-15.5); WBC 2.9 k/uL (3.8-10.6)
[2018-10-13 15:30] LABS: Eosinophils # (M) 0.15 k/uL (0-0.7); Lymphocytes # (M) 0.99 k/uL (1.0-4.8); Monocytes # (M) 0.06 k/uL (0-1.0); Neutrophils # (M) 1.71 k/uL (1.3-7.7); Neutrophils % (M) 59 %; Nucleated Red Blood Cells 0 /100 WBC (0-0); Poikilocytosis (M) Present; Polychromasia Present; Total Cells Counted 100
[2018-10-13 15:31] LABS: Platelet Count 75 k/uL (150-450)
[2018-10-13 20:10] LABS: Vitamin D 25 Hydroxy 61.3 ng/mL (30.0-100.0)
[2018-10-13 20:50] LABS: Albumin 2.7 g/dL (3.80-4.90); Anion Gap 7.9 mmol/L (4.00-12.00); Calcium 9.1 mg/dL (8.7-10.3); Carbon Dioxide 20.1 mmol/L (21.6-31.8); Iron Saturation 22.99 (15.00-50.00); Magnesium 1.2 mg/dL (1.5-2.4); Potassium 4.5 mmol/L (3.5-5.5); Uric Acid 12.4 mg/dL (3.7-8.7)
[2018-10-13 21:22] LABS: Creatinine,Urine Random 49.8 mg/dL
[2018-10-13 21:46] LABS: Total Protein,Urine Random 86.9 mg/dL (0.0-13.5)
== END | disposition home or self-care (01) ==
LOC: LABWHC1 13:26
PROVIDERS: ATTEND Internal Medicine Nephrology
DX: R80.9 Proteinuria, unspecified (principal); N18.4 Chronic kidney disease, stage 4 (severe); E55.9 Vitamin D deficiency, unspecified; E21.3 Hyperparathyroidism, unspecified; M10.9 Gout, unspecified; D63.1 Anemia in chronic kidney disease; N39.0 Urinary tract infection, site not specified
CPT/HCPCS: 36415; 80048; 81001; 82040; 82306; 82570; 82728; 83540; 83550; 83735; 83970; 84100; 84156; 84550; 85025

== ENCOUNTER → 2018-12-01 | Outpatient (CLI) | payer MEDICARE, BC ==
[2018-12-01 19:12] LABS: African American GFR (CKD) 22.2 (60.0-200.0); Anion Gap 10.1 mmol/L (4.00-12.00); BUN/Creat Ratio 24.67 Ratio (12.00-20.00); Calcium 8.9 mg/dL (8.7-10.3); Carbon Dioxide 24.9 mmol/L (21.6-31.8); Potassium 4.7 mmol/L (3.5-5.5)
== END | disposition home or self-care (01) ==
LOC: LABWHC1 15:04
PROVIDERS: ATTEND Nurse Practitioner Family
DX: R60.9 Edema, unspecified (principal)
CPT/HCPCS: 36415; 80048

== ENCOUNTER → 2018-12-08 | Outpatient (CLI) | payer MEDICARE, BC ==
--- NOTE | 2018-12-08 14:38 | US ---
EXAMINATION TYPE: US bladder DATE OF EXAM: 12/08/2018 COMPARISON: None CLINICAL HISTORY: 78-year-old male R30.0 DYSURIA, SLOW STREAM, BPH. Patient states having bladder dis comfort and unable to urinate. Patient states when he is able to go, he only goes a little. Hx of U TI's. TECHNIQUE: Multiple sonographic images of the bladder are obtained. FINDINGS: EXAM MEASUREMENTS: Post Void Residual Volume: 351.2 mL Initial marked distention of the urinary bladder. Right trabeculated margins. Color Doppler performed to assess ureteral jets. Bilateral Jets seen: Left jet only seen Normal Post Void Residual (less than 50ml): ABNORMAL IMPRESSION: Postvoid bladder volume of around 350 mL. Findings compatible with urinary retention. Correlate as to etiology such as BPH and bladder outlet obstruction.
== END | disposition home or self-care (01) ==
LOC: RADUSWWP 13:44
PROVIDERS: ATTEND Family Medicine
DX: N40.0 Benign prostatic hyperplasia without lower urinary tract symptoms (principal); R30.0 Dysuria
CPT/HCPCS: 76857

== ENCOUNTER → 2019-01-12 | Outpatient (CLI) | payer MEDICARE, BC ==
[2019-01-12 13:32] LABS: Appearance,Urine Clear (Clear); Bilirubin,Urine Negative (Negative); Blood,Urine Negative (Negative); Color,Urine Yellow; Glucose,Urine (UA) Negative (Negative); Ketones,Urine Negative (Negative); Leukocyte Esterase,Urine Negative (Negative); Mucus,Urine Rare /hpf; Nitrite,Urine Negative (Negative); PH, Urine 7.5 (5.0-8.0); Protein,Urine 1+ (Negative); Specific Gravity,Urine 1.012 (1.001-1.035); Squamous Epithelial Cell,Urine <1 /hpf (0-4); Urobilinogen,Urine <2.0 mg/dL (<2.0); WBC,Urine <1 /hpf (0-5)
[2019-01-12 13:49] LABS: Anisocytosis Slight; HCT 28.4 % (39.0-53.0); HGB 8.6 gm/dL (13.0-17.5); Hypochromasia Marked; MCH 30.4 pg (25.0-35.0); MCHC 30.4 g/dL (31.0-37.0); MCV 100.3 fL (80.0-100.0); Macrocytosis Moderate; Mean Platelet Volume 12.6; Platelet Count 81 k/uL (150-450); RBC 2.83 m/uL (4.30-5.90); RDW 18.9 % (11.5-15.5); WBC 3.5 k/uL (3.8-10.6)
[2019-01-12 14:48] LABS: Lymphocytes # (M) 1.37 k/uL (1.0-4.8); Monocytes # (M) 0.18 k/uL (0-1.0); Neutrophils # (M) 1.96 k/uL (1.3-7.7); Neutrophils % (M) 56 %; Nucleated Red Blood Cells 0 /100 WBC (0-0); Total Cells Counted 100
[2019-01-12 14:50] LABS: RBC Fragments Present
[2019-01-12 14:51] LABS: Mixed Population RBC Present
[2019-01-12 19:21] LABS: Iron Saturation 12.7 (15.00-50.00)
[2019-01-12 19:22] LABS: Vitamin D 25 Hydroxy 55.3 ng/mL (30.0-100.0)
[2019-01-12 19:24] LABS: Creatinine,Urine Random 47.9 mg/dL
[2019-01-12 19:31] LABS: Total Protein,Urine Random 91.1 mg/dL (0.0-13.5)
[2019-01-12 20:41] LABS: Parathyroid Hormone Intact 17.1 pg/mL (14.0-72.0)
[2019-01-12 20:53] LABS: African American GFR (CKD) 17.8 (60.0-200.0); Anion Gap 9.1 mmol/L (4.00-12.00); BUN/Creat Ratio 16.94 Ratio (12.00-20.00); Calcium 9.2 mg/dL (8.7-10.3); Carbon Dioxide 24.9 mmol/L (21.6-31.8); Phosphorus 3.7 mg/dL (2.4-5.1); Uric Acid 3.9 mg/dL (3.7-8.7)
== END | disposition home or self-care (01) ==
LOC: LABWHC1 12:41
PROVIDERS: ATTEND Internal Medicine Nephrology
DX: E55.9 Vitamin D deficiency, unspecified (principal); D64.9 Anemia, unspecified; E79.0 Hyperuricemia without signs of inflammatory arthritis and tophaceous disease; N18.4 Chronic kidney disease, stage 4 (severe); N25.81 Secondary hyperparathyroidism of renal origin; N39.0 Urinary tract infection, site not specified; R80.9 Proteinuria, unspecified
CPT/HCPCS: 36415; 80048; 81001; 82040; 82306; 82570; 82728; 83540; 83550; 83735; 83970; 84100; 84156; 84550; 85025

== ENCOUNTER → 2019-01-16 | Outpatient (CLI) | payer MEDICARE, BC ==
[2019-01-16 19:15] LABS: African American GFR (CKD) 18.4 (60.0-200.0); Anion Gap 10.3 mmol/L (4.00-12.00); BUN/Creat Ratio 19.14 Ratio (12.00-20.00); Calcium 8.8 mg/dL (8.7-10.3); Carbon Dioxide 24.7 mmol/L (21.6-31.8); Potassium 4.6 mmol/L (3.5-5.5)
== END | disposition home or self-care (01) ==
LOC: LABWHC1 14:34
PROVIDERS: ATTEND Internal Medicine Nephrology
DX: M10.9 Gout, unspecified (principal); D63.1 Anemia in chronic kidney disease; N18.4 Chronic kidney disease, stage 4 (severe); N39.0 Urinary tract infection, site not specified; E83.39 Other disorders of phosphorus metabolism; R80.9 Proteinuria, unspecified
CPT/HCPCS: 36415; 80048

== ENCOUNTER 2019-01-23 11:46 | Inpatient (IN) | payer MEDICARE, BC ==
[2019-01-23] MEDS ORDERED: methylPREDNISolone SOD SUCCI 125 MG/2 ML VIAL IV STA (12:12)
[2019-01-23] MEDS ORDERED: MAGNESIUM SULFATE-D5W PMX 1 GM in DEXTROSE/WATER 1 100ML.BAG IVPB STA (12:12)
[2019-01-23] MEDS ORDERED: IPRATROPIUM 0.5 MG/2.5 ML NEBU INHALATION STA (12:12)
[2019-01-23] MEDS ORDERED: ALBUTEROL NEBULIZED 2.5 MG/3 ML INHALATION STA (12:12)
--- NOTE | 2019-01-23 12:14 | ED ---
SOB HPI - General Chief Complaint: Shortness of Breath Stated Complaint: SOB Time Seen by Provider: 01/23/19 12:00 Source: patient Mode of arrival: ambulatory Limitations: no limitations - History of Present Illness Initial Comments: Patient complains of shortness of breath. He is more short of breath when walking. Nothing makes his symptoms better. He denies any sick contacts or recent travel. He has had a recent pneumonia. He is not on antibiotics currently. He has no palpitations. She denies swelling in the arms or legs. Nothing else makes his symptoms better or worse. He has taken no specific medication for her symptoms today. He was not doing anything when the shortness of breath got worse today. - Related Data Home Medications Medication Instructions Recorded Confirmed ALPRAZolam [Xanax] 0.25 mg PO TID PRN 02/07/18 01/23/19 Atorvastatin [Lipitor] 80 mg PO HS 02/07/18 01/23/19 Magnesium Oxide 800 mg PO DAILY 02/07/18 01/23/19 Omeprazole 20 mg PO DAILY 02/07/18 01/23/19 Tamsulosin [Flomax] 0.4 mg PO DAILY 02/07/18 01/23/19 Furosemide [Lasix] 40 mg PO DAILY 05/11/18 01/23/19 Potassium Chloride [Klor-Con 20] 20 meq PO BID 05/11/18 01/23/19 Finasteride [Proscar] 5 mg PO DAILY 01/23/19 01/23/19 Previous Rx's Medication Instructions Recorded Insulin Aspart Protam & Aspart 10 unit SQ AC-BID #1 pen 02/11/18 [NovoLOG MIX 70-30 Flexpen] NIFEdipine XL [Procardia XL] 30 mg PO DAILY tab.er.24 02/21/18 Acetaminophen Tab [Tylenol] 650 mg PO Q6HR PRN tab 05/21/18 Aspirin 81 mg PO DAILY #0 chew 05/21/18 Darbepoetin Hans [Aranesp] 60 mcg SQ Q7D syringe 05/21/18 Ipratropium-Albuterol Nebulize 3 ml INHALATION RT-QID ampul.neb 05/21/18 [Duoneb 0.5 mg-3 mg/3 ml Soln] Metoprolol Tartrate [Lopressor] 12.5 mg PO BID #60 dose 11/28/18 Allergies Allergy/AdvReac Type Severity Reaction Status Date / Time No Known Allergies Allergy Verified 01/23/19 13:27 Review of Systems ROS Statement: Those systems with pertinent positive or pertinent negative responses have been documented in the HPI. ROS Other: All systems not noted in ROS Statement are negative. Respiratory: Reports: dyspnea Past Medical History Past Medical History: Coronary Artery Disease (CAD), Heart Failure, COPD, Pneumonia, Renal Disease Additional Past Medical History / Comment(s): emphysema, low hgb , aortic stenosis Last Myocardial Infarction Date:: 2009 History of Any Multi-Drug Resistant Organisms: VRE Date of last positivie culture/infection: 06/29/16 MDRO Source:: Urine Past Surgical History: Heart Catheterization With Stent Additional Past Surgical History / Comment(s): aortic anuersym repair, left foot toe removal, 4 cardiac stents. Past Anesthesia/Blood Transfusion Reactions: No Reported Reaction Date of Last Stent Placement:: unk Past Psychological History: No Psychological Hx Reported Smoking Status: Former smoker Past Alcohol Use History: Rare Past Drug Use History: None Reported - Past Family History Mother Additional Family Medical History / Comment(s): brain tumor Father Family Medical History: CVA/TIA General Exam Limitations: no limitations General appearance: alert, in no apparent distress Head exam: Present: atraumatic, normocephalic, normal inspection Eye exam: Present: normal appearance, PERRL, EOMI. Absent: scleral icterus, conjunctival injection, periorbital swelling ENT exam: Present: normal exam, mucous membranes moist Neck exam: Present: normal inspection. Absent: tenderness, meningismus, lymphadenopathy Respiratory exam: Present: wheezes, rales. Absent: rhonchi, stridor Cardiovascular Exam: Present: regular rate, normal rhythm, normal heart sounds. Absent: systolic murmur, diastolic murmur, rubs, gallop, clicks GI/Abdominal exam: Present: soft, normal bowel sounds. Absent: distended, tenderness, guarding, rebound, rigid Extremities exam: Present: normal inspection, full ROM, normal capillary refill. Absent: tenderness, pedal edema, joint swelling, calf tenderness Back exam: Present: normal inspection Neurological exam: Present: alert, oriented X3, CN II-XII intact Psychiatric exam: Present: normal affect, normal mood Skin exam: Present: warm, dry, intact, normal color. Absent: rash Course Vital Signs 01/23/19 01/23/19 01/23/19 11:49 12:23 12:37 Temperature 97.9 F Pulse Rate 85 86 79 Respiratory 20 Rate Blood Pressure 164/70 O2 Sat by Pulse 91 L Oximetry 01/23/19 13:15 Temperature Pulse Rate 86 Respiratory Rate Blood Pressure O2 Sat by Pulse Oximetry Medical Decision Making - Medical Decision Making Patient complains of shortness of breath. He is given breathing treatments. Ch est x-ray shows pneumonia. I ordered blood cultures and IV antibiotics. He will be admitted to the hospital. - Lab Data Result diagrams: 01/23/19 12:14 01/23/19 12:14 Lab Results 01/23/19 01/23/19 01/23/19 Range/Units 12:14 12:14 12:14 WBC 3.5 L (3.8-10.6) k/uL RBC 2.78 L (4.30-5.90) m/uL Hgb 8.6 L (13.0-17.5) gm/dL Hct 27.5 L (39.0-53.0) % MCV 98.9 (80.0-100.0) fL MCH 30.9 (25.0-35.0) pg MCHC 31.3 (31.0-37.0) g/dL RDW 19.2 H (11.5-15.5) % Plt Count 73 L (150-450) k/uL Neutrophils % (Manual) 60 % Lymphocytes % (Manual) 26 % Monocytes % (Manual) 14 % Neutrophils # (Manual) 2.10 (1.3-7.7) k/uL Lymphocytes # (Manual) 0.91 L (1.0-4.8) k/uL Monocytes # (Manual) 0.49 (0-1.0) k/uL Nucleated RBCs 0 (0-0) /100 WBC Manual Slide Review Performed Hypochromasia Moderate Poikilocytosis (manual Present Anisocytosis Slight Macrocytosis Slight Rouleaux Present PT (9.0-12.0) sec INR (<1.2) APTT (22.0-30.0) sec Sodium 144 (137-145) mmol/L Potassium 4.8 (3.5-5.1) mmol/L Chloride 105 (98-107) mmol/L Carbon Dioxide 22 (22-30) mmol/L Anion Gap 17 mmol/L BUN 69 H (9-20) mg/dL Creatinine 3.72 H (0.66-1.25) mg/dL Est GFR (CKD-EPI)AfAm 17 (>60 ml/min/1.73 sqM) Est GFR (CKD-EPI)NonAf 15 (>60 ml/min/1.73 sqM) Glucose 102 H (74-99) mg/dL Calcium 9.5 (8.4-10.2) mg/dL Magnesium 2.1 (1.6-2.3) mg/dL Total Bilirubin 1.1 (0.2-1.3) mg/dL AST 33 (17-59) U/L ALT 18 L (21-72) U/L Alkaline Phosphatase 160 H (38-126) U/L Troponin I (0.000-0.034) ng/mL NT-Pro-B Natriuret Pep 03336 pg/mL Total Protein 8.6 H (6.3-8.2) g/dL Albumin 3.3 L (3.5-5.0) g/dL 01/23/19 01/23/19 Range/Units 12:14 12:14 WBC (3.8-10.6) k/uL RBC (4.30-5.90) m/uL Hgb (13.0-17.5) gm/dL Hct (39.0-53.0) % MCV (80.0-100.0) fL MCH (25.0-35.0) pg MCHC (31.0-37.0) g/dL RDW (11.5-15.5) % Plt Count (150-450) k/uL Neutrophils % (Manual) % Lymphocytes % (Manual) % Monocytes % (Manual) % Neutrophils # (Manual) (1.3-7.7) k/uL Lymphocytes # (Manual) (1.0-4.8) k/uL Monocytes # (Manual) (0-1.0) k/uL Nucleated RBCs (0-0) /100 WBC Manual Slide Review Hypochromasia Poikilocytosis (manual Anisocytosis Macrocytosis Rouleaux PT 10.9 (9.0-12.0) sec INR 1.0 (<1.2) APTT 26.0 (22.0-30.0) sec Sodium (137-145) mmol/L Potassium (3.5-5.1) mmol/L Chloride (98-107) mmol/L Carbon Dioxide (22-30) mmol/L Anion Gap mmol/L BUN (9-20) mg/dL Creatinine (0.66-1.25) mg/dL Est GFR (CKD-EPI)AfAm (>60 ml/min/1.73 sqM) Est GFR (CKD-EPI)NonAf (>60 ml/min/1.73 sqM) Glucose (74-99) mg/dL Calcium (8.4-10.2) mg/dL Magnesium (1.6-2.3) mg/dL Total Bilirubin (0.2-1.3) mg/dL AST (17-59) U/L ALT (21-72) U/L Alkaline Phosphatase (38-126) U/L Troponin I 0.019 (0.000-0.034) ng/mL NT-Pro-B Natriuret Pep pg/mL Total Protein (6.3-8.2) g/dL Albumin (3.5-5.0) g/dL - EKG Data EKG Comments: Twelve-lead EKG shows ventricular rate 84 bpm, no P waves are present, normal QRS complex is, no ST elevation, interpreted by me as atrial fibrillation. Disposition Clinical Impression: Community acquired pneumonia Disposition: ADMITTED IP TO THIS HOSP Condition: Fair Is patient prescribed a controlled substance at d/c from ED?: No Referrals: Patsy Teague DO [Primary Care Provider] - 1-2 days
[2019-01-23 12:38] LABS: Albumin 3.3 g/dL (3.5-5.0); Calcium 9.5 mg/dL (8.4-10.2); Magnesium 2.1 mg/dL (1.6-2.3); Potassium 4.8 mmol/L (3.5-5.1); Total Bilirubin 1.1 mg/dL (0.2-1.3); Total Protein 8.6 g/dL (6.3-8.2)
[2019-01-23 12:39] LABS: Prothrombin Time 10.9 sec (9.0-12.0)
[2019-01-23 12:59] LABS: Anisocytosis Slight; HCT 27.5 % (39.0-53.0); HGB 8.6 gm/dL (13.0-17.5); Hypochromasia Moderate; MCH 30.9 pg (25.0-35.0); MCHC 31.3 g/dL (31.0-37.0); MCV 98.9 fL (80.0-100.0); Macrocytosis Slight; Mean Platelet Volume 12.2; RBC 2.78 m/uL (4.30-5.90); RDW 19.2 % (11.5-15.5); WBC 3.5 k/uL (3.8-10.6)
--- NOTE | 2019-01-23 13:06 | XR ---
EXAMINATION TYPE: XR chest 2V DATE OF EXAM: 01/23/2019 COMPARISON: 12/23/2018 TECHNIQUE: PA and lateral views submitted. HISTORY: Difficulty breathing FINDINGS: Interstitial pattern with cardiomegaly and small bilateral pleural effusions. Basilar subsegmental co nsolidation. Degenerative changes spine. Atherosclerotic change aorta. IMPRESSION: 1. COPD with small bilateral effusions and basilar infiltrate or atelectasis. Correlate for venous co ngestion or interstitial pneumonitis.
[2019-01-23 13:23] LABS: Platelet Count 73 k/uL (150-450)
[2019-01-23 13:26] LABS: Lymphocytes # (M) 0.91 k/uL (1.0-4.8); Monocytes # (M) 0.49 k/uL (0-1.0); Neutrophils % (M) 60 %; Nucleated Red Blood Cells 0 /100 WBC (0-0); Rouleaux Present; Total Cells Counted 100
[2019-01-23 13:27] LABS: Poikilocytosis (M) Present
[2019-01-23] MEDS ORDERED: cefTRIAXone IN SWFI 1,000 MG/10 ML SYRINGE IVP STA (13:36)
[2019-01-23] MEDS ORDERED: AZITHROMYCIN 500 MG in SODIUM CHLORIDE 0.9% 250 ML IVPB STA (13:36)
[2019-01-23] MEDS ORDERED: DOCUSATE 100 MG CAP PO PRN (13:43)
[2019-01-23] MEDS ORDERED: ONDANSETRON 4 MG/2 ML VIAL IVP PRN (13:43)
[2019-01-23] MEDS ORDERED: NALOXONE 0.4 MG/ML 1 ML VIAL IV PRN (13:43)
[2019-01-23] MEDS ORDERED: MAG HYDROX/AL HYDROX/SIMETH 30 ML CUP PO PRN (13:43)
[2019-01-23] MEDS ORDERED: ACETAMINOPHEN TAB 325 MG TAB PO PRN (13:45)
[2019-01-23] MEDS ORDERED: DARBEPOETIN ALFA 60 MCG/0.3 ML SYRINGE SQ SCH (13:45)
[2019-01-23 15:49] VITALS: BMI 25.9
[2019-01-23 16:55] LABS: Glucose,Whole Blood 161 mg/dL (75-99)
[2019-01-23] MEDS: INSULN ASP PRT/INSULIN ASPART 100 UNIT/ML 10 ML VIAL SQ SCH (17:34)
[2019-01-23] MEDS: IPRATROPIUM-ALBUTEROL 3 ML NEB INHALATION SCH ×2 (17:40→21:04)
[2019-01-23 20:32] LABS: Glucose,Whole Blood 237 mg/dL (75-99)
[2019-01-23] MEDS: METOPROLOL TARTRATE 12.5 MG TAB PO SCH (21:14)
[2019-01-23] MEDS: POTASSIUM CHLORIDE ER 20 MEQ TAB.ER PO SCH (21:15)
[2019-01-23] MEDS: ATORVASTATIN 80 MG TAB PO SCH (21:15)
[2019-01-23] MEDS: INSULIN ASPART (NovoLOG) 100 UNIT/ML VIAL SQ SCH (21:47)
[2019-01-24 06:19] LABS: Glucose,Whole Blood 159 mg/dL (75-99)
[2019-01-24] MEDS: INSULN ASP PRT/INSULIN ASPART 100 UNIT/ML 10 ML VIAL SQ SCH ×2 (06:31→17:23)
[2019-01-24] MEDS: INSULIN ASPART (NovoLOG) 100 UNIT/ML VIAL SQ SCH ×4 (06:31→20:28)
[2019-01-24] MEDS: IPRATROPIUM-ALBUTEROL 3 ML NEB INHALATION SCH ×4 (07:23→19:30)
[2019-01-24] MEDS ORDERED: INSULIN ASPART (NovoLOG) 100 UNIT/ML VIAL SQ SCH (07:30)
[2019-01-24] MEDS ORDERED: FUROSEMIDE 10 MG/ML 4 ML VIAL IV SCH ×2 (08:00→09:00)
[2019-01-24] MEDS: METOPROLOL TARTRATE 12.5 MG TAB PO SCH ×2 (08:11→20:27)
[2019-01-24] MEDS: ASPIRIN 81 MG PO SCH (08:11)
[2019-01-24] MEDS: MAGNESIUM OXIDE 400 MG TAB PO SCH (08:11)
[2019-01-24] MEDS: FINASTERIDE 5 MG TAB PO SCH (08:11)
[2019-01-24] MEDS: ENOXAPARIN 40 MG/0.4 ML SYRINGE SQ SCH (08:11)
[2019-01-24] MEDS: NIFEdipine XL 30 MG TAB.ER.24 PO SCH (08:11)
[2019-01-24] MEDS: predniSONE 20 MG TAB PO SCH (08:11)
[2019-01-24] MEDS: TAMSULOSIN 0.4 MG CAP.ER.24H PO SCH (08:11)
[2019-01-24] MEDS: POTASSIUM CHLORIDE ER 20 MEQ TAB.ER PO SCH ×2 (08:12→20:27)
[2019-01-24 08:47] LABS: Calcium 9.5 mg/dL (8.4-10.2); Potassium 4.9 mmol/L (3.5-5.1)
[2019-01-24 08:50] LABS: Anisocytosis Slight; Basophils % (A) 0 %; Eosinophils % (A) 0 %; HCT 26.6 % (39.0-53.0); HGB 8.1 gm/dL (13.0-17.5); Hypochromasia Marked; Lymphocytes # (A) 0.7 k/uL (1.0-4.8); Lymphocytes % (A) 14 %; MCH 30.9 pg (25.0-35.0); MCHC 30.4 g/dL (31.0-37.0); MCV 101.8 fL (80.0-100.0); Macrocytosis Moderate; Mean Platelet Volume 12.8; Monocytes # (A) 0.3 k/uL (0-1.0); Monocytes % (A) 7 %; Neutrophils # (A) 3.7 k/uL (1.3-7.7); Neutrophils % (A) 76 %; RBC 2.61 m/uL (4.30-5.90); RDW 19.7 % (11.5-15.5); WBC 4.8 k/uL (3.8-10.6)
[2019-01-24 08:52] LABS: Platelet Count 75 k/uL (150-450)
[2019-01-24] MEDS ORDERED: FUROSEMIDE 40 MG TAB PO SCH (09:00)
--- NOTE | 2019-01-24 09:49 | P.HPIM ---
History of Present Illness H&P Date: 01/24/19 Chief Complaint: dyspnea Rome lOguin is a 78 yo M with PMH of CAD, diastolic CHF, COPD, T2DM, CKD4, myeloproliferative disorder who presented to the ED complaining of progressive dyspnea. He notes this came on suddenly over the past few days and is worse with walking. Pt also notes it has been hard for him to sit up or eat as he has been getting dyspneic with that. He denies chest pain, palpitations or leg swelling. Pt notes baseline orthopnea and states he can only sleep with his head elevated on the L. No recent infections and no sick contacts at home. Pt was previously taking 20 mg lasix daily but his Transitional Care Liaison recent increased this to 40 mg daily. He also states his kidney function has recently declined and has has been in the process of talking about dialysis but has not made decision whether to proceed yet. In the ED he was tachypneic and required 4 L O2 to maintain 90% saturation. CXR with basilar infiltrate and small kimmy effusions. Leukopenia, a nemia and thrombocytopenia noted. Trop negative BNP >[id number] and procalcitonin 0.5. Review of Systems All systems: negative Constitutional: Reports lethargy, Reports malaise, Denies chills, Denies fever Eyes: denies blurred vision, denies pain Ears, nose, mouth and throat: Denies headache, Denies sore throat Cardiovascular: Reports decreased exercise tolerance, Reports dyspnea on exertion, Reports orthopnea, Reports shortness of breath, Denies chest pain Respiratory: Reports cough, Reports dyspnea Gastrointestinal: Denies abdominal pain, Denies diarrhea, Denies nausea, Denies vomiting Musculoskeletal: Denies myalgias Integumentary: Denies pruritus, Denies rash Neurological: Denies numbness, Denies weakness Psychiatric: Denies anxiety, Denies depression Endocrine: Denies fatigue, Denies weight change Past Medical History Past Medical History: Atrial Fibrillation, Blood Disorder, Coronary Artery Disease (CAD), Heart Failure, COPD, Diabetes Mellitus, GERD/Reflux, Pneumonia, Prostate Disorder, Renal Disease, Respiratory Disorder, Vascular Disorder Additional Past Medical History / Comment(s): Pneumonias, chronic respiratory failure, home oxygen at 3L/NC ATC, mild pulmonary htn, ischemic cardiomyopathy, moderate aortic stenosis/aortic regurg, severe mitral regurg/mild mitral stenosis, murmur, NIDDM type II-diet controlled now, CKD stage IV, anemia, myeloproliferative disease, PAD, UTIs, intermittent urinary retention, BPH, arthritis bilateral hips, mono at age 18yrs. Last Myocardial Infarction Date:: 2009 History of Any Multi-Drug Resistant Organisms: VRE Date of last positivie culture/infection: 06/29/16 MDRO Source:: Urine Past Surgical History: Heart Catheterization, Heart Catheterization With Stent Additional Past Surgical History / Comment(s): PCI with stents, AAA repair with sleeve in 2007, PTBA L leg and R kidney, L foot 5th toe amp d/t injury, colonoscopy/benign polypectomy. Past Anesthesia/Blood Transfusion Reactions: No Reported Reaction Additional Past Anesthesia/Blood Transfusion Reaction / Comment(s): Pt has received blood in past without reaction. Date of Last Stent Placement:: 1992 Past Psychological History: No Psychological Hx Reported Additional Psychological History / Comment(s): Pt resides alone. He has a friend, Earnest, who comes over daily and will help care for pt. Pt has home oxygen, nebulizer and glucometer. He uses a wheeled walker. He no longer drives, Earnest, drives pt to appts. Smoking Status: Former smoker Past Alcohol Use History: Rare Additional Past Alcohol Use History / Comment(s): Pt started smoking in 1961 and quit in 2009. Past Drug Use History: None Reported - Past Family History Mother Additional Family Medical History / Comment(s): Metastatic brain tumor Father Family Medical History: CVA/TIA Medications and Allergies Home Medications Medication Instructions Recorded Confirmed Type ALPRAZolam [Xanax] 0.25 mg PO TID PRN 02/07/18 01/23/19 History Atorvastatin [Lipitor] 80 mg PO HS 02/07/18 01/23/19 History Magnesium Oxide 800 mg PO DAILY 02/07/18 01/23/19 History Omeprazole 20 mg PO DAILY 02/07/18 01/23/19 History Tamsulosin [Flomax] 0.4 mg PO DAILY 02/07/18 01/23/19 History Insulin Aspart Protam & Aspart 10 unit SQ AC-BID #1 pen 02/11/18 01/23/19 Rx [NovoLOG MIX 70-30 Flexpen] NIFEdipine XL [Procardia XL] 30 mg PO DAILY tab.er.24 02/21/18 01/23/19 Rx Furosemide [Lasix] 40 mg PO DAILY 11/18/18 08/02/19 History Potassium Chloride [Klor-Con 20] 20 meq PO BID 05/11/18 01/23/19 History Acetaminophen Tab [Tylenol] 650 mg PO Q6HR PRN tab 05/21/18 01/23/19 Rx Aspirin 81 mg PO DAILY #0 chew 05/21/18 01/23/19 Rx Darbepoetin Hans [Aranesp] 60 mcg SQ Q7D syringe 05/21/18 01/23/19 Rx Ipratropium-Albuterol Nebulize 3 ml INHALATION RT-QID ampul.neb 05/21/18 01/23/19 Rx [Duoneb 0.5 mg-3 mg/3 ml Soln] Metoprolol Tartrate [Lopressor] 12.5 mg PO BID #60 dose 05/21/18 01/23/19 Rx Finasteride [Proscar] 5 mg PO DAILY 01/23/19 01/23/19 History Allergies Allergy/AdvReac Type Severity Reaction Status Date / Time No Known Allergies Allergy Verified 01/23/19 13:27 Physical Exam Vitals: Vital Signs Temp Pulse Pulse Resp BP BP Pulse Ox 01/24/19 04:00 98.0 F 77 18 144/67 97 01/24/19 00:00 98.4 F 72 18 150/65 98 01/23/19 21:13 92 18 01/23/19 21:04 90 18 01/23/19 20:00 98.5 F 80 18 132/64 95 01/23/19 17:49 88 18 01/23/19 17:40 83 18 93 L 01/23/19 15:00 98.7 F 88 18 137/69 92 L 01/23/19 14:24 89 22 136/81 96 01/23/19 13:15 86 01/23/19 12:37 79 01/23/19 12:23 86 01/23/19 11:49 97.9 F 85 20 164/70 91 L Intake and Output 01/23/19 01/24/19 01/24/19 22:59 06:59 14:59 Intake Total 10 Output Total 400 200 Balance -400 -190 Intake: IV 10 0.9 10 Output: Urine 400 200 Other: Voiding Method Urinal Urinal # Voids 0 Weight 78.5 kg Constitutional: well developed, well nourished, NAD. Vitals reviewed Head: normocephalic, atraumatic. on 4 L O2 Eyes: PERRL, EOMI, conjunctiva normal ENT: TMs clear, nasal mucosa normal, mucus membranes moist Neck: supple, no JVD or thyromegaly CV: RRR. Systolic murmur. Pulses 1+ Lungs: Normal respiratory effort, rhonchi and rales at bases Abd: soft, nontender, no organomegaly Ext: normal ROM, no edema Neuro: alert and oriented x3, no focal deficits Skin: warm and dry Results CBC & Chem 7: 01/24/19 07:53 01/24/19 07:53 Labs: Abnormal Lab Results - Last 24 Hours (Table) 01/23/19 01/23/19 01/23/19 Range/Units 12:14 12:14 12:14 WBC 3.5 L (3.8-10.6) k/uL RBC 2.78 L (4.30-5.90) m/uL Hgb 8.6 L (13.0-17.5) gm/dL Hct 27.5 L (39.0-53.0) % RDW 19.2 H (11.5-15.5) % Plt Count 73 L (150-450) k/uL Lymphocytes # (Manual) 0.91 L (1.0-4.8) k/uL BUN 69 H (9-20) mg/dL Creatinine 3.72 H (0.66-1.25) mg/dL Glucose 102 H (74-99) mg/dL POC Glucose (mg/dL) (75-99) mg/dL ALT 18 L (21-72) U/L Alkaline Phosphatase 160 H (38-126) U/L Total Protein 8.6 H (6.3-8.2) g/dL Albumin 3.3 L (3.5-5.0) g/dL Procalcitonin 0.48 H (0.02-0.09) ng/mL 01/23/19 01/23/19 01/24/19 Range/Units 16:47 20:30 06:18 WBC (3.8-10.6) k/uL RBC (4.30-5.90) m/uL Hgb (13.0-17.5) gm/dL Hct (39.0-53.0) % RDW (11.5-15.5) % Plt Count (150-450) k/uL Lymphocytes # (Manual) (1.0-4.8) k/uL BUN (9-20) mg/dL Creatinine (0.66-1.25) mg/dL Glucose (74-99) mg/dL POC Glucose (mg/dL) 161 H 237 H 159 H (75-99) mg/dL ALT (21-72) U/L Alkaline Phosphatase (38-126) U/L Total Protein (6.3-8.2) g/dL Albumin (3.5-5.0) g/dL Procalcitonin (0.02-0.09) ng/mL Thrombosis Risk Factor Assmnt - Choose All That Apply Any of the Below Risk Factors Present?: Yes Each Factor Represents 1 point: Obesity (BMI >25), Serious lung disease incl. pneumonia (< 1month) Other Risk Factors: Yes Each Risk Factor Represents 3 Points: Age 75 years or older Other congenital or acquired thrombophilia - If yes, enter type in comment: No Thrombosis Risk Factor Assessment Total Risk Factor Score: 5 Thrombosis Risk Factor Assessment Level: High Risk Assessment and Plan (1) Acute exacerbation of CHF (congestive heart failure) Current Visit: Yes Status: Acute Code(s): I50.9 - HEART FAILURE, UNSPECIFIED SNOMED Code(s): 667311420 (2) Thrombocytopenia Current Visit: Yes Status: Acute Code(s): D69.6 - THROMBOCYTOPENIA, UNSPECIFIED SNOMED Code(s): 726953157 (3) Chronic leukopenia Current Visit: Yes Status: Acute Code(s): D72.819 - DECREASED WHITE BLOOD CELL COUNT, UNSPECIFIED SNOMED Code(s): 24278189 (4) Community acquired pneumonia Current Visit: Yes Status: Acute Code(s): J18.9 - PNEUMONIA, UNSPECIFIED ORGANISM SNOMED Code(s): 215196418 (5) Acute on chronic renal failure Current Visit: No Status: Acute Code(s): N17.9 - ACUTE KIDNEY FAILURE, UNSPECIFIED; N18.9 - CHRONIC KIDNEY DISEASE, UNSPECIFIED SNOMED Code(s): 760821241 (6) Acute pulmonary edema Current Visit: No Status: Acute Code(s): J81.0 - ACUTE PULMONARY EDEMA SNOMED Code(s): 02389471 (7) Aortic stenosis Current Visit: No Status: Acute Code(s): I35.0 - NONRHEUMATIC AORTIC (VALVE) STENOSIS SNOMED Code(s): 99449937 (8) Anemia in chronic kidney disease Current Visit: No Status: Chronic Priority: Medium Code(s): N18.9 - CALIBRATION TECHNICIAN LUPIS KIDNEY DISEASE, UNSPECIFIED; D63.1 - ANEMIA IN CHRONIC KIDNEY DISEASE SNOMED Code(s): 549679068 (9) Myelodysplastic syndrome Current Visit: No Status: Chronic Priority: Medium Code(s): D46.9 - MYELODYSPLASTIC SYNDROME, UNSPECIFIED SNOMED Code(s): 023210602 Plan: 1. CHF exacerbation. Likely secondary to underlying pneumonia. On 40 mg lasix at home. Obtain echo this admission. Increase lasix to 40 mg IV bid. I/Os 2. Community Acquired Pneumonia. Procalcitonin 0.5. Treat with rocephin and azithromycin 3. COPD. Given solumedrol in the ED. Continue duonebs prn. Continue 40 mg prednisone qd. Titrate O2 to 88% 4. Acute on chronic renal failure. 5. Anemia of CKD. Continue aranesp 6. Leukopenia, thrombocytopenia. Secondary to MDS. Continue to monitor 7. T2DM. Not on insulin at home. Accuchecks/sliding scale Time with Patient: Greater than 30
[2019-01-24 11:42] LABS: Glucose,Whole Blood 305 mg/dL (75-99)
--- NOTE | 2019-01-24 13:49 | ECHOF ---
Referral Reason:dyspnea, CHF MEASUREMENTS -------- HEIGHT: 175.3 cm WEIGHT: 78.5 kg BP: 144/67 IVSd: 1.3 cm (0.6 - 1.1) LVIDd: 4.4 cm (3.9 - 5.3) LVPWd: 1.8 cm (0.6 - 1.1) IVSs: 1.6 cm LVIDs: 3.8 cm LVPWs: 1.9 cm LA Diam: 5.2 cm (2.7 - 3.8) RVIDd: 2.6 cm (< 3.3) LAESV Index (A-L): 52.50 ml/m Ao Diam: 3.1 cm (2.0 - 3.7) LA Diam: 4.0 cm (2.7 - 3.8) AV Cusp: 1.0 cm (1.5 - 2.6) EPSS: 1.4 cm MV E Ayden: 1.01 m/s MV DecT: 116 ms MV A Ayden: 0.52 m/s MV E/A Ratio: 1.95 AV maxP.87 mmHg AV meanP.56 mmHg AR PHT: 217 ms RAP: 15.00 mmHg RVSP: 75.94 mmHg MV EF SLOPE: 67.31 mm/s (70 - 150) MV EXCURSION: 16.66 mm (> 18.000) FINDINGS -------- Sinus rhythm. This was a technically good study. The left ventricular size is normal. There is mild concentric left ventricular hypertrophy. Overa ll left ventricular systolic function is low-normal with, an EF between 50 - 55 %. The right ventricle is normal in size. The left atrium is markedly dilated. LA is severely dilated >40 ml/m2 The right atrial size is normal. There is mild aortic regurgitation. There is werufcex-dp-bojtyt aortic stenosis present. Peak/rema n gradient across the Aortic Valve is 58.87mmHg / 35.56mmHg. The mitral valve leaflets are mildly thickened. Mild mitral annular calcification present. Modera ji-jk-xawknt mitral regurgitation is present. Moderate to severe tricuspid regurgitation present. There is moderate to severe pulmonary hypertens ion. The right ventricular systolic pressure, as measured by Doppler, is 75.94mmHg. Trace/mild (physiologic) pulmonic regurgitation. The aortic root size is normal. There is no pericardial effusion. CONCLUSIONS -------- 1. The left ventricular size is normal. 2. There is mild concentric left ventricular hypertrophy. 3. Overall left ventricular systolic function is low-normal with, an EF between 50 - 55 %. 4. The right ventricle is normal in size. 5. The left atrium is markedly dilated. 6. LA is severely dilated >40 ml/m2 7. The right atrial size is normal. 8. There is mild aortic regurgitation. 9. There is fqhcgbrt-nz-zachoe aortic stenosis present. 10. Peak/mean gradient across the Aortic Valve is 58.87mmHg / 35.56mmHg. 11. The mitral valve leaflets are mildly thickened. 12. Mild mitral annular calcification present. 13. Gdosjzwn-ry-phzorj mitral regurgitation is present. 14. Moderate to severe tricuspid regurgitation present. 15. There is moderate to severe pulmonary hypertension. 16. The right ventricular systolic pressure, as measured by Doppler, is 75.94mmHg. 17. Trace/mild (physiologic) pulmonic regurgitation. 18. The aortic root size is normal. 19. There is no pericardial effusion. MEDICAL SONOGRAPHER: Valorie Novak RDCS
[2019-01-24] MEDS: ALPRAZolam 0.25 MG TAB PO PRN (14:13)
[2019-01-24] MEDS ORDERED: IPRATROPIUM-ALBUTEROL 3 ML NEB INHALATION PRN (14:20)
[2019-01-24] MEDS: FUROSEMIDE 10 MG/ML 4 ML VIAL IV SCH ×2 (14:28→20:32)
[2019-01-24 17:22] LABS: Glucose,Whole Blood 211 mg/dL (75-99)
[2019-01-24 20:20] LABS: Glucose,Whole Blood 209 mg/dL (75-99)
[2019-01-24] MEDS: ATORVASTATIN 80 MG TAB PO SCH (20:27)
[2019-01-25 06:48] LABS: Glucose,Whole Blood 140 mg/dL (75-99)
[2019-01-25] MEDS: INSULN ASP PRT/INSULIN ASPART 100 UNIT/ML 10 ML VIAL SQ SCH ×2 (06:49→17:20)
[2019-01-25] MEDS: INSULIN ASPART (NovoLOG) 100 UNIT/ML VIAL SQ SCH ×4 (06:50→21:21)
[2019-01-25 06:52] LABS: Anisocytosis Slight; Basophils % (A) 0 %; Calcium 9.3 mg/dL (8.4-10.2); Eosinophils % (A) 0 %; HCT 24.2 % (39.0-53.0); HGB 7.4 gm/dL (13.0-17.5); Hypochromasia Marked; Lymphocytes # (A) 1.1 k/uL (1.0-4.8); Lymphocytes % (A) 14 %; MCH 31.2 pg (25.0-35.0); MCHC 30.6 g/dL (31.0-37.0); MCV 102.1 fL (80.0-100.0); Macrocytosis Moderate; Mean Platelet Volume 12.3; Monocytes # (A) 0.4 k/uL (0-1.0); Monocytes % (A) 5 %; Neutrophils % (A) 76 %; Potassium 4.5 mmol/L (3.5-5.1); RBC 2.38 m/uL (4.30-5.90); RDW 19.9 % (11.5-15.5); WBC 7.8 k/uL (3.8-10.6)
[2019-01-25 06:54] LABS: Platelet Count 78 k/uL (150-450)
[2019-01-25] MEDS: IPRATROPIUM-ALBUTEROL 3 ML NEB INHALATION SCH ×4 (07:37→21:00)
[2019-01-25] MEDS: ASPIRIN 81 MG PO SCH (09:10)
[2019-01-25] MEDS: MAGNESIUM OXIDE 400 MG TAB PO SCH (09:10)
[2019-01-25] MEDS: NIFEdipine XL 30 MG TAB.ER.24 PO SCH (09:10)
[2019-01-25] MEDS: POTASSIUM CHLORIDE ER 20 MEQ TAB.ER PO SCH ×2 (09:10→21:20)
[2019-01-25] MEDS: predniSONE 20 MG TAB PO SCH (09:10)
[2019-01-25] MEDS: METOPROLOL TARTRATE 12.5 MG TAB PO SCH ×2 (09:10→21:20)
[2019-01-25] MEDS: TAMSULOSIN 0.4 MG CAP.ER.24H PO SCH (09:10)
[2019-01-25] MEDS: FINASTERIDE 5 MG TAB PO SCH (09:10)
[2019-01-25] MEDS: ENOXAPARIN 40 MG/0.4 ML SYRINGE SQ SCH (09:11)
[2019-01-25] MEDS: FUROSEMIDE 10 MG/ML 4 ML VIAL IV SCH ×3 (09:11→21:21)
[2019-01-25 11:47] LABS: Glucose,Whole Blood 183 mg/dL (75-99)
--- NOTE | 2019-01-25 13:05 | P.CNPUL ---
History of Present Illness Consult date: 01/25/19 Requesting physician: Primo Martinez Reason for consult: dyspnea Chief complaint: shortness of breath History of present illness: this is a 78-year-old white male with history of multiple medical problems including chronic diastolic congestive heart failure, COPD, type 2 diabetes, chronic kidney disease stage IV, myeloproliferative disorder, chronic atrial fibrillation, GERD, chronic anemia, patient is very familiar to my service, and I see her mostly for his underlying COPD. Patient presented to the ER with a few days' history of increased shortness of breath. Worse upon walking. Occas ional cough, no wheezing, no fever, no chills, no hemoptysis, and no chest pain. Patient also describes 2 pillows orthopnea, and paroxysmal nocturnal dyspnea. Chest x-ray upon admission showed evidence of interstitial edema consistent with congestive heart failure, patient was admitted, placed on diuretics, and today he feels much better compared to how he felt when he came in. His labs showedn ormal WBC count, and significantly elevated proBNP level.pro calcitonin level was also noted to be elevated however the patient had no clinical findings to suggest pneumonia. Review of Systems Constitutional: Reports fatigue, poor appetite, no weight loss. Eyes: denies blurred vision, denies pain Ears: deny: decreased hearing, ear discharge, earache, tinnitus Ears, nose, mouth and throat: Denies headache, Denies sore throat Cardiovascular: discharge on exertion. Respiratory: occasional cough and dyspnea on exertion. Gastrointestinal: denies nausea abdominal pain melena or hematemesis. Genitourinary: denied dysuria frequency urgency hematuria. Musculoskeletal: Reports muscle weakness Integumentary: denies itching, Reports dryness Neurological: Reports weakness Psychiatric: denies symptoms of active depression. Endocrine: Reports fatigue Past Medical History Past Medical History: Atrial Fibrillation, Blood Disorder, Coronary Artery Disease (CAD), Heart Failure, COPD, Diabetes Mellitus, GERD/Reflux, Pneumonia, Prostate Disorder, Renal Disease, Respiratory Disorder, Vascular Disorder Additional Past Medical History / Comment(s): Pneumonias, chronic respiratory failure, home oxygen at 3L/NC ATC, mild pulmonary htn, ischemic cardiomyopathy, moderate aortic stenosis/aortic regurg, severe mitral regurg/mild mitral stenosis, murmur, NIDDM type II-diet controlled now, CKD stage IV, anemia, myeloproliferative disease, PAD, UTIs, intermittent urinary retention, BPH, arthritis bilateral hips, mono at age 18yrs. Last Myocardial Infarction Date:: 2009 History of Any Multi-Drug Resistant Organisms: VRE Date of last positivie culture/infection: 06/29/16 MDRO Source:: Urine Past Surgical History: Heart Catheterization, Heart Catheterization With Stent Additional Past Surgical History / Comment(s): PCI with stents, AAA repair with sleeve in 2007, PTBA L leg and R kidney, L foot 5th toe amp d/t injury, colonoscopy/benign polypectomy. Past Anesthesia/Blood Transfusion Reactions: No Reported Reaction Additional Past Anesthesia/Blood Transfusion Reaction / Comment(s): Pt has received blood in past without reaction. Date of Last Stent Placement:: 1992 Past Psychological History: No Psychological Hx Reported Additional Psychological History / Comment(s): Pt resides alone. He has a friend, Earnest, who comes over daily and will help care for pt. Pt has home oxygen, nebulizer and glucometer. He uses a wheeled walker. He no longer drives, Earnest, drives pt to [employer]. Smoking Status: Former smoker Past Alcohol Use History: Rare Additional Past Alcohol Use History / Comment(s): Pt started smoking in 1961 and quit in 2009. Past Drug Use History: None Reported - Past Family History Mother Additional Family Medical History / Comment(s): Metastatic brain tumor Father Family Medical History: CVA/TIA Medications and Allergies Home Medications Medication Instructions Recorded Confirmed Type ALPRAZolam [Xanax] 0.25 mg PO TID PRN 02/07/18 01/23/19 History Atorvastatin [Lipitor] 80 mg PO HS 02/07/18 01/23/19 History Magnesium Oxide 800 mg PO DAILY 02/07/18 01/23/19 History Omeprazole 20 mg PO DAILY 02/07/18 01/23/19 History Tamsulosin [Flomax] 0.4 mg PO DAILY 02/07/18 01/23/19 History Insulin Aspart Protam & Aspart 10 unit SQ AC-BID #1 pen 02/11/18 01/23/19 Rx [NovoLOG MIX 70-30 Flexpen] NIFEdipine XL [Procardia XL] 30 mg PO DAILY tab.er.24 02/21/18 01/23/19 Rx Furosemide [Lasix] 40 mg PO DAILY 05/11/18 01/23/19 History Potassium Chloride [Klor-Con 20] 20 meq PO BID 05/11/18 01/23/19 History Acetaminophen Tab [Tylenol] 650 mg PO Q6HR PRN tab 05/21/18 01/23/19 Rx Aspirin 81 mg PO DAILY #0 chew 05/21/18 01/23/19 Rx Darbepoetin Hans [Aranesp] 60 mcg SQ Q7D syringe 05/21/18 01/23/19 Rx Ipratropium-Albuterol Nebulize 3 ml INHALATION RT-QID ampul.neb 05/21/18 01/23/19 Rx [Duoneb 0.5 mg-3 mg/3 ml Soln] Metoprolol Tartrate [Lopressor] 12.5 mg PO BID #60 dose 05/21/18 01/23/19 Rx Finasteride [Proscar] 5 mg PO DAILY 01/23/19 01/23/19 History Allergies Allergy/AdvReac Type Severity Reaction Status Date / Time No Known Allergies Allergy Verified 01/23/19 13:27 Physical Exam Vitals: Vital Signs Temp Pulse Pulse Resp BP Pulse Ox 01/25/19 11:45 84 01/25/19 11:35 82 01/25/19 08:00 97.6 F 80 20 128/62 98 01/25/19 07:47 88 01/25/19 07:39 84 01/25/19 04:00 97.4 F L 71 18 142/53 98 01/25/19 00:00 97.6 F 71 20 139/58 99 01/24/19 20:00 97.7 F 74 20 152/61 97 01/24/19 19:40 91 18 01/24/19 19:30 89 18 01/24/19 16:00 96.4 F L 68 20 132/63 93 L 01/24/19 14:39 88 01/24/19 14:31 100 Intake and Output 01/24/19 01/25/19 01/25/19 22:59 06:59 14:59 Intake Total 222 240 Output Total 350 200 525 Balance -128 -200 -285 Intake: Oral 222 240 Output: Urine 350 200 525 Other: Voiding Method Urinal Urinal Urinal # Voids 2 1 Weight 78.6 kg Gen.: Revealed a 78-year-old white male, extremely pleasant, in no form of respiratory distress, on few liters nasal cannula. HEENT : PERRLA, EOMI, no icterus, pale and dry mucous membranes. Throat is lay ar. Neck supple. Full range of motion. No adenopathy thyromegaly or neck vein distention. Cardiovascular examination reveals regular rhythm rate. S1-S2 normal. No S3 or S4. No discernible murmur noted. Heart sounds are very distant. Lungs symmetrical chest expansion. Very minimal fine crackles at the bases, no rhonchi no wheezes. Abdomen soft bowel sounds are heard. No masses or tenderness. Extremities are intact. No cyanosis clubbing or edema. Skin is without rash or lesion.dry skin is noted. Areas of ecchymosis noted. Neurologic examination : Alert oriented 3, no gross focal neurologic deficits. Psychiatric: Normal mood, affect, normal mental status examination. Lymphatics: No lymphadenopathy. Results - Laboratory Findings CBC and BMP: 01/25/19 06:11 01/25/19 06:11 PT/INR, D-dimer PT 10.9 sec (9.0-12.0) 01/23/19 12:14 INR 1.0 (<1.2) 01/23/19 12:14 Abnormal lab findings: Abnormal Labs 01/23/19 01/23/19 01/23/19 12:14 12:14 12:14 WBC 3.5 L RBC 2.78 L Hgb 8.6 L Hct 27.5 L MCV MCHC RDW 19.2 H Plt Count 73 L Lymphocytes # Lymphocytes # (Manual) 0.91 L BUN 69 H Creatinine 3.72 H Glucose 102 H POC Glucose (mg/dL) ALT 18 L Alkaline Phosphatase 160 H Total Protein 8.6 H Albumin 3.3 L Procalcitonin 0.48 H 01/23/19 01/23/19 01/24/19 16:47 20:30 06:18 WBC RBC Hgb Hct MCV MCHC RDW Plt Count Lymphocytes # Lymphocytes # (Manual) BUN Creatinine Glucose POC Glucose (mg/dL) 161 H 237 H 159 H ALT Alkaline Phosphatase Total Protein Albumin Procalcitonin 01/24/19 01/24/19 01/24/19 07:53 07:53 11:40 WBC RBC 2.61 L Hgb 8.1 L Hct 26.6 L MCV 101.8 H MCHC 30.4 L RDW 19.7 H Plt Count 75 L Lymphocytes # 0.7 L Lymphocytes # (Manual) BUN 73 H Creatinine 3.57 H Glucose 158 H POC Glucose (mg/dL) 305 H ALT Alkaline Phosphatase Total Protein Albumin Procalcitonin 01/24/19 01/24/19 01/25/19 17:21 20:19 06:11 WBC RBC 2.38 L Hgb 7.4 L Hct 24.2 L MCV 102.1 H MCHC 30.6 L RDW 19.9 H Plt Count 78 L Lymphocytes # Lymphocytes # (Manual) BUN Creatinine Glucose POC Glucose (mg/dL) 211 H 209 H ALT Alkaline Phosphatase Total Protein Albumin Procalcitonin 01/25/19 01/25/19 01/25/19 06:11 06:47 11:46 WBC RBC Hgb Hct MCV MCHC RDW Plt Count Lymphocytes # Lymphocytes # (Manual) BUN 83 H Creatinine 3.75 H Glucose 130 H POC Glucose (mg/dL) 140 H 183 H ALT Alkaline Phosphatase Total Protein Albumin Procalcitonin - Diagnostic Findings Chest x-ray: image reviewed (chest x-ray showed evidence of COPD, small bilateral effusions, and interstitial edema is strongly suspected with venous congestion.) Assessment and Plan Assessment: Acute exacerbation of chronic diastolic congestive heart failure. The patient also has moderate aortic stenosis, moderate mitral stenosis and moderate pulmonary hypertension with an RVSP of 57.21 mmHg History of GERD History of hypertension History of CHF History of hyperlipidemia Stage IV COPD,presently inactive history of myelodysplastic syndrome. History of urinary tract infection secondary to Enterococcus faecalis. Poor overall functional performance based on the above-mentioned multiple comorbidities. Recommendation:continue present dose of Lasix at 40 mg IV push 3 times a day, patient is already demonstrating clinical improvement with diuretics only. Resume his usual home meds, continue updrafts,continue prednisone, resume his cardiac meds, consider repeat chest x-ray in a.m., and if the patient continues to improve clinically and radiographically, consider discharge planning in the next 24 hours. Time with Patient: Greater than 30
[2019-01-25] MEDS: ALPRAZolam 0.25 MG TAB PO PRN (13:51)
--- NOTE | 2019-01-25 15:42 | P.PN ---
Subjective Progress Note Date: 01/25/19 Rome Olguin is a 78 yo M with PMH of CAD, diastolic CHF, COPD, T2DM, CKD4, myeloproliferative disorder who presented to the ED complaining of progressive dyspnea. He notes this came on suddenly over the past few days and is worse with walking. Pt also notes it has been hard for him to sit up or eat as he has been getting dyspneic with that. He denies chest pain, palpitations or leg swelling. Pt notes baseline orthopnea and states he can only sleep with his head elevated on the L. No recent infections and no sick contacts at home. Pt was previously taking 20 mg lasix daily but his Knowledge Management Advisor recent increased this to 40 mg daily. He also states his kidney function has recently declined and has has been in the process of talking about dialysis but has not made decision whether to proceed yet. In the ED he was tachypneic and required 4 L O2 to maintain 90% saturation. CXR with basilar infiltrate and small kimmy effusions. Leukopenia, anemia and thrombocytopenia noted. Trop negative BNP >74794 and procalcitonin 0.5. 8/4. Pt is feeling better today and O2 requirement decreasing. Creatinine slightly increased today. His Echo demonstrated and pulmonary hypertension. He did walk the jones yesterday with some shortness of breath. Objective - Vital Signs Vital signs: Vital Signs Temp 97.8 F 01/25/19 12:00 Pulse 82 01/25/19 12:00 Resp 20 01/25/19 12:00 BP 146/65 01/25/19 12:00 Pulse Ox 94 L 01/25/19 12:00 Intake & Output 01/24/19 01/25/19 01/25/19 18:59 06:59 18:59 Intake Total 796 222 320 Output Total 450 200 525 Balance 346 22 -205 Weight 78.6 kg Intake: Oral 796 222 320 Output: Urine 450 200 525 Other: Voiding Method Urinal Urinal Urinal # Voids 2 1 - Exam Constitutional: well developed, NAD on 3 L NC CV: RRR, systolic murmur Lungs: normal respiratory effort, scattered rales Ext: no edema Neuro: oriented x3 - Labs CBC & Chem 7: 01/25/19 06:11 01/25/19 06:11 Labs: Abnormal Lab Results - Last 24 Hours (Table) 01/24/19 01/24/19 01/25/19 Range/Units 17:21 20:19 06:11 RBC 2.38 L (4.30-5.90) m/uL Hgb 7.4 L (13.0-17.5) gm/dL Hct 24.2 L (39.0-53.0) % MCV 102.1 H (80.0-100.0) fL MCHC 30.6 L (31.0-37.0) g/dL RDW 19.9 H (11.5-15.5) % Plt Count 78 L (150-450) k/uL BUN (9-20) mg/dL Creatinine (0.66-1.25) mg/dL Glucose (74-99) mg/dL POC Glucose (mg/dL) 211 H 209 H (75-99) mg/dL 01/25/19 01/25/19 01/25/19 Range/Units 06:11 06:47 11:46 RBC (4.30-5.90) m/uL Hgb (13.0-17.5) gm/dL Hct (39.0-53.0) % MCV (80.0-100.0) fL MCHC (31.0-37.0) g/dL RDW (11.5-15.5) % Plt Count (150-450) k/uL BUN 83 H (9-20) mg/dL Creatinine 3.75 H (0.66-1.25) mg/dL Glucose 130 H (74-99) mg/dL POC Glucose (mg/dL) 140 H 183 H (75-99) mg/dL Microbiology - Last 24 Hours (Table) 01/23/19 14:14 Blood Culture - Preliminary Blood No Growth after 24 hours Assessment and Plan (1) Acute exacerbation of CHF (congestive heart failure) Current Visit: Yes Status: Acute Code(s): I50.9 - HEART FAILURE, UNSPECIFIED SNOMED Code(s): 678118494 (2) Thrombocytopenia Current Visit: Yes Status: Acute Code(s): D69.6 - THROMBOCYTOPENIA, UNSPECIFIED SNOMED Code(s): 813316555 (3) Chronic leukopenia Current Visit: Yes Status: Acute Code(s): D72.819 - DECREASED WHITE BLOOD CELL COUNT, UNSPECIFIED SNOMED Code(s): 80842167 (4) Community acquired pneumonia Current Visit: Yes Status: Acute Code(s): J18.9 - PNEUMONIA, UNSPECIFIED ORGANISM SNOMED Code(s): 803751995 (5) Acute on chronic renal failure Current Visit: No Status: Acute Code(s): N17.9 - ACUTE KIDNEY FAILURE, UNSPECIFIED; N18.9 - CHRONIC KIDNEY DISEASE, UNSPECIFIED SNOMED Code(s): 584442929 (6) Acute pulmonary edema Current Visit: No Status: Acute Code(s): J81.0 - ACUTE PULMONARY EDEMA SNOMED Code(s): 63069713 (7) Aortic stenosis Current Visit: No Status: Acute Code(s): I35.0 - NONRHEUMATIC AORTIC (VALVE) STENOSIS SNOMED Code(s): 95061171 (8) Anemia in chronic kidney disease Current Visit: No Status: Chronic Priority: Medium Code(s): N18.9 - CHRONIC KIDNEY DISEASE, UNSPECIFIED; D63.1 - ANEMIA IN CHRONIC KIDNEY DISEASE SNOMED Code(s): 808995265 (9) Myelodysplastic syndrome Current Visit: No Status: Chronic Priority: Medium Code(s): D46.9 - MYE LODYSPLASTIC SYNDROME, UNSPECIFIED SNOMED Code(s): 883258147 (10) Pulmonary hypertension Current Visit: Yes Status: Acute Code(s): I27.20 - PULMONARY HYPERTENSION, UNSPECIFIED SNOMED Code(s): 96719955 Plan: 1. CHF exacerbation. Continue lasix 40 mg tid 2. Community Acquired Pneumonia. Procalcitonin 0.5. Continue with rocephin and azithromycin 3. COPD. Continue duonebs prn. Continue 40 mg prednisone qd. Titrate O2 to 88% 4. Aortic stenosis. Continue lopressor 5. Pulmonary hypertension. Pulmonology following. Can consider sildenafil 6. Acute on chronic renal failure. 7. Anemia of CKD. Continue aranesp 8. Leukopenia, thrombocytopenia. Secondary to MDS. Continue to monitor 9. T2DM. Not on insulin at home. Accuchecks/sliding scale
[2019-01-25 16:38] LABS: Glucose,Whole Blood 299 mg/dL (75-99)
[2019-01-25 21:12] LABS: Glucose,Whole Blood 329 mg/dL (75-99)
[2019-01-25] MEDS: ATORVASTATIN 80 MG TAB PO SCH (21:20)
[2019-01-26 06:08] LABS: Anisocytosis Slight; HCT 24.7 % (39.0-53.0); HGB 7.6 gm/dL (13.0-17.5); Hypochromasia Marked; MCH 30.7 pg (25.0-35.0); MCHC 30.8 g/dL (31.0-37.0); MCV 99.6 fL (80.0-100.0); Macrocytosis Moderate; Mean Platelet Volume 12.2; RBC 2.48 m/uL (4.30-5.90); RDW 19.3 % (11.5-15.5); WBC 5.7 k/uL (3.8-10.6)
[2019-01-26 06:16] LABS: Calcium 9.1 mg/dL (8.4-10.2); Potassium 5.1 mmol/L (3.5-5.1)
[2019-01-26 06:27] LABS: Glucose,Whole Blood 141 mg/dL (75-99)
[2019-01-26] MEDS: INSULIN ASPART (NovoLOG) 100 UNIT/ML VIAL SQ SCH ×4 (06:39→21:34)
[2019-01-26] MEDS: INSULN ASP PRT/INSULIN ASPART 100 UNIT/ML 10 ML VIAL SQ SCH ×2 (06:39→15:38)
[2019-01-26 06:53] LABS: Large Platelets Present; Ovalocytes Present; Platelet Count 82 k/uL (150-450); Poikilocytosis (M) Present
[2019-01-26 06:55] LABS: Lymphocytes # (M) 0.57 k/uL (1.0-4.8); Monocytes # (M) 0.29 k/uL (0-1.0); Neutrophils % (M) 85 %; Nucleated Red Blood Cells 0 /100 WBC (0-0); Total Cells Counted 100
[2019-01-26] MEDS: IPRATROPIUM-ALBUTEROL 3 ML NEB INHALATION SCH ×4 (08:29→20:18)
[2019-01-26] MEDS: POTASSIUM CHLORIDE ER 20 MEQ TAB.ER PO SCH ×3 (08:38→21:33)
[2019-01-26] MEDS: METOPROLOL TARTRATE 12.5 MG TAB PO SCH ×2 (08:38→21:33)
[2019-01-26] MEDS: MAGNESIUM OXIDE 400 MG TAB PO SCH (08:38)
[2019-01-26] MEDS: TAMSULOSIN 0.4 MG CAP.ER.24H PO SCH (08:38)
[2019-01-26] MEDS: ASPIRIN 81 MG PO SCH (08:38)
[2019-01-26] MEDS: FINASTERIDE 5 MG TAB PO SCH (08:39)
[2019-01-26] MEDS: NIFEdipine XL 30 MG TAB.ER.24 PO SCH (08:39)
[2019-01-26] MEDS: predniSONE 20 MG TAB PO SCH (08:39)
[2019-01-26] MEDS: ENOXAPARIN 40 MG/0.4 ML SYRINGE SQ SCH (08:39)
[2019-01-26] MEDS: FUROSEMIDE 10 MG/ML 4 ML VIAL IV SCH ×3 (08:39→21:34)
[2019-01-26 10:58] LABS: Iron Saturation 16.29 (15.00-50.00)
--- NOTE | 2019-01-26 11:24 | P.PN ---
Subjective Progress Note Date: 01/26/19 Rome Olguin is a 78 yo M with PMH of CAD, diastolic CHF, COPD, T2DM, CKD4, myeloproliferative disorder who presented to the ED complaining of progressive dyspnea. He notes this came on suddenly over the past few days and is worse with walking. Pt also notes it has been hard for him to sit up or eat as he has been getting dyspneic with that. He denies chest pain, palpitations or leg swelling. Pt notes baseline orthopnea and states he can only sleep with his head elevated on the L. No recent infections and no sick contacts at home. Pt was previously taking 20 mg lasix daily but his Retail Field Merchandiser recent increased this to 40 mg daily. He also states his kidney function has recently declined and has has been in the process of talking about dialysis but has not made decision whether to proceed yet. In the ED he was tachypneic and required 4 L O2 to maintain 90% saturation. CXR with basilar infiltrate and small kimmy effusions. Leukopenia, anemia and thrombocytopenia noted. Trop negative BNP >06451 and procalcitonin 0.5. 8/4. Pt is feeling better today and O2 requirement decreasing. Creatinine slightly increased today. His Echo demonstrated and pulmonary hypertension. He did walk the jones yesterday with some shortness of breath. 01/26/2019 oxygen weaned down to 3 L, maintaining O2 sats in the high 90s. Creatinine 3.76. Diuresing well on Lasix IV push with 24-hour I&O reflecting a negative fluid balance. Shortness of breath with exertion improving. Denies chest pain, palpitations. Denies lightheadedness, dizziness or focal deficits. Objective - Vital Signs Vital signs: Vital Signs Temp 97.5 F L 01/26/19 08:00 Pulse 72 01/26/19 08:39 Resp 22 01/26/19 08:00 BP 133/63 01/26/19 08:00 Pulse Ox 96 01/26/19 08:00 Intake & Output 01/25/19 01/26/19 01/26/19 18:59 06:59 18:59 Intake Total 370 120 Output Total 525 975 200 Balance -155 -975 -80 Weight 77.5 kg Intake: Oral 370 120 Output: Urine 525 975 200 Other: Voiding Method Urinal Urinal Urinal # Voids 4 1 - Exam Constitutional: well developed, NAD on 3 L NC CV: RRR, systolic murmur Lungs: normal respiratory effort, scattered rales Ext: no edema Neuro: oriented x3 - Labs CBC & Chem 7: 01/26/19 05:07 01/26/19 05:07 Labs: Abnormal Lab Results - Last 24 Hours (Table) 01/25/19 01/25/19 01/25/19 Range/Units 06:11 11:46 16:36 RBC (4.30-5.90) m/uL Hgb (13.0-17.5) gm/dL Hct (39.0-53.0) % MCHC (31.0-37.0) g/dL RDW (11.5-15.5) % Plt Count (150-450) k/uL Lymphocytes # (Manual) (1.0-4.8) k/uL BUN (9-20) mg/dL Creatinine (0.66-1.25) mg/dL Glucose (74-99) mg/dL POC Glucose (mg/dL) 183 H 299 H (75-99) mg/dL Iron 29 L (65-175) ug/dL TIBC 178 L (228-460) ug/dL Ferritin 538.9 H (22.0-322.0) ng/mL 01/25/19 01/26/19 01/26/19 Range/Units 21:10 05:07 05:07 RBC 2.48 L (4.30-5.90) m/uL Hgb 7.6 L (13.0-17.5) gm/dL Hct 24.7 L (39.0-53.0) % MCHC 30.8 L (31.0-37.0) g/dL RDW 19.3 H (11.5-15.5) % Plt Count 82 L (150-450) k/uL Lymphocytes # (Manual) 0.57 L (1.0-4.8) k/uL BUN 89 H (9-20) mg/dL Creatinine 3.76 H (0.66-1.25) mg/dL Glucose 145 H (74-99) mg/dL POC Glucose (mg/dL) 329 H (75-99) mg/dL Iron (65-175) ug/dL TIBC (228-460) ug/dL Ferritin (22.0-322.0) ng/mL 01/26/19 Range/Units 06:26 RBC (4.30-5.90) m/uL Hgb (13.0-17.5) gm/dL Hct (39.0-53.0) % MCHC (31.0-37.0) g/dL RDW (11.5-15.5) % Plt Count (150-450) k/uL Lymphocytes # (Manual) (1.0-4.8) k/uL BUN (9-20) mg/dL Creatinine (0.66-1.25) mg/dL Glucose (74-99) mg/dL POC Glucose (mg/dL) 141 H (75-99) mg/dL Iron (65-175) ug/dL TIBC (228-460) ug/dL Ferritin (22.0-322.0) ng/mL Microbiology - Last 24 Hours (Table) 01/23/19 14:14 Blood Culture - Preliminary Blood No Growth after 48 hours Assessment and Plan Assessment: (1) Acute exacerbation of CHF (congestive heart failure), diastolic dysfunction Current Visit: Yes Status: Acute Code(s): I50.9 - HEART FAILURE, UNSPECIFIED SNOMED Code(s): 899465661 (2) Thrombocytopenia Current Visit: Yes Status: Acute Code(s): D69.6 - THROMBOCYTOPENIA, UNSPECIFIED SNOMED Code(s): 152266336 (3) Chronic leukopenia Current Visit: Yes Status: Acute Code(s): D72.819 - DECREASED WHITE BLOOD CELL COUNT, UNSPECIFIED SNOMED Code(s): 79937551 (4) Community acquired pneumonia Current Visit: Yes Status: Acute Code(s): J18.9 - PNEUMONIA, UNSPECIFIED ORGANISM SNOMED Code(s): 956728643 (5) Acute on chronic renal failure Current Visit: No Status: Acute Code(s): N17.9 - ACUTE KIDNEY FAILURE, UNSPECIFIED; N18.9 - CHRONIC KIDNEY DISEASE, UNSPECIFIED SNOMED Code(s): 335261198 (6) Acute pulmonary edema Current Visit: No Status: Acute Code(s): J81.0 - ACUTE PULMONARY EDEMA SNOMED Code(s): 84014521 (7) Aortic stenosis Current Visit: No Status: Acute Code(s): I35.0 - NONRHEUMATIC AORTIC (VALVE) STENOSIS SNOMED Code(s): 18129082 (8) Anemia in chronic kidney disease Current Visit: No Status: Chronic Priority: Medium Code(s): N18.9 - CHRONIC KIDNEY DISEASE, UNSPECIFIED; D63.1 - ANEMIA IN CHRONIC KIDNEY DISEASE SNOMED Code(s): 123947252 (9) Myelodysplastic syndrome Current Visit: No Status: Chronic Priority: Medium Code(s): D46.9 - MYELODYSPLASTIC SYNDROME, UNSPECIFIED SNOMED Code(s): 858773597 (10) Pulmonary hypertension Current Visit: Yes Status: Acute Code(s): I27.20 - PULMONARY HYPERTENSION, UNSPECIFIED SNOMED Code(s): 35095927 (11) diabetes mellitus type 2, hemoglobin A1c pending. (12) acute on chronic hypoxic respiratory failure secondary to all the above. Plan: Continue current medication regime , Lopressor, monitoring and symptomatic treatment. Continue weaning oxygen to maintain O2 sats greater than or equal to 90%. Maintain antibiotics of Rocephin, Zithromax. Continue diuresing on Lasix IV push. Close monitoring of renal function, electrolytes with repeat labs ordered for a.m. hemoglobin A1c ordered. Discussed with patient aortic stenosis with further follow up with cardiology outpatient. Discharge planning in progress for tomorrow. Further recommendations to follow.
[2019-01-26 11:48] LABS: Glucose,Whole Blood 153 mg/dL (75-99)
--- NOTE | 2019-01-26 13:25 | P.PN ---
Subjective Progress Note Date: 01/26/19 Principal diagnosis: Acute exacerbation of chronic diastolic congestive heart failure. this is a 78-year-old white male with history of multiple medical problems including chronic diastolic congestive heart failure, COPD, type 2 diabetes, chronic kidney disease stage IV, myeloproliferative disorder, chronic atrial fibrillation, GERD, chronic anemia, patient is very familiar to my service, and I see her mostly for his underlying COPD. Patient presented to the ER with a few days' history of increased shortness of breath. Worse upon walking. Occasional cough, no wheezing, no fever, no chills, no hemoptysis, and no chest pain. Patient also describes 2 pillows orthopnea, and paroxysmal nocturnal dyspnea. Chest x-ray upon admission showed evidence of interstitial edema consistent with congestive heart failure, patient was admitted, placed on diuretics, and today he feels much better compared to how he felt when he came in. His labs showednormal WBC count, and significantly elevated proBNP level.pro calcitonin level was also noted to be elevated however the patient had no clinical findings to suggest pneumonia. The patient is seen today 01/26/2019 in follow-up on the selective care unit. He is currently resting comfortably in bed. Awake and alert in no acute distress. He is breathing quite a bit better today as compared to yesterday. He is maintaining good O2 saturations in the 90s on 3 L/m per nasal cannula. He is afebrile. Hemodynamically stable. Blood culture reveals no growth to date. White count 5.7. Hemoglobin 7.6. Platelet count 82,000. BUN 89. Creatinine 3.76. He remains on Lasix 40 mg IV every 8 hours. He remains in a negative b alance. His weight is down 1.1 kg. Objective - Vital Signs Vital signs: Vital Signs Temp 97.5 F L 01/26/19 08:00 Pulse 68 01/26/19 11:29 Resp 22 01/26/19 08:00 BP 133/63 01/26/19 08:00 Pulse Ox 96 01/26/19 08:00 Intake & Output 01/25/19 01/26/19 01/26/19 18:59 06:59 18:59 Intake Total 370 120 Output Total 525 975 900 Balance -155 -975 -780 Weight 77.5 kg Intake: Oral 370 120 Output: Urine 525 975 900 Other: Voiding Method Urinal Urinal Urinal # Voids 4 1 - Exam GENERAL EXAM: Alert, active, comfortable in no apparent distress. On 3 L nasal cannula. HEAD: Normocephalic. EYES: Normal reaction of pupils, equal size. NOSE: Clear with pink turbinates. THROAT: No erythema or exudates. NECK: No masses, no JVD. CHEST: No chest wall deformity. LUNGS: Equal air entry with faint crackles in the bilateral posterior bases. CVS: S1 and S2 normal with no audible murmur, regular rhythm. ABDOMEN: No hepatosplenomegaly, normal bowel sounds, no guarding or rigidity. SPINE: No scoliosis or deformity SKIN: No rashes CENTRAL NERVOUS SYSTEM: No focal deficits, tone is normal in all 4 extremities. EXTREMITIES: There is no peripheral edema. No clubbing, no cyanosis. Peripheral pulses are intact. - Labs CBC & Chem 7: 01/26/19 05:07 01/26/19 05:07 Labs: Abnormal Lab Results - Last 24 Hours (Table) 01/25/19 01/25/19 01/25/19 Range/Units 06:11 16:36 21:10 RBC (4.30-5.90) m/uL Hgb (13.0-17.5) gm/dL Hct (39.0-53.0) % MCHC (31.0-37.0) g/dL RDW (11.5-15.5) % Plt Count (150-450) k/uL Lymphocytes # (Manual) (1.0-4.8) k/uL BUN (9-20) mg/dL Creatinine (0.66-1.25) mg/dL Glucose (74-99) mg/dL POC Glucose (mg/dL) 299 H 329 H (75-99) mg/dL Iron 29 L (65-175) ug/dL TIBC 178 L (228-460) ug/dL Ferritin 538.9 H (22.0-322.0) ng/mL 01/26/19 01/26/19 01/26/19 Range/Units 05:07 05:07 06:26 RBC 2.48 L (4.30-5.90) m/uL Hgb 7.6 L (13.0-17.5) gm/dL Hct 24.7 L (39.0-53.0) % MCHC 30.8 L (31.0-37.0) g/dL RDW 19.3 H (11.5-15.5) % Plt Count 82 L (150-450) k/uL Lymphocytes # (Manual) 0.57 L (1.0-4.8) k/uL BUN 89 H (9-20) mg/dL Creatinine 3.76 H (0.66-1.25) mg/dL Glucose 145 H (74-99) mg/dL POC Glucose (mg/dL) 141 H (75-99) mg/dL Iron (65-175) ug/dL TIBC (228-460) ug/dL Ferritin (22.0-322.0) ng/mL 01/26/19 Range/Units 11:42 RBC (4.30-5.90) m/uL Hgb (13.0-17.5) gm/dL Hct (39.0-53.0) % MCHC (31.0-37.0) g/dL RDW (11.5-15.5) % Plt Count (150-450) k/uL Lymphocytes # (Manual) (1.0-4.8) k/uL BUN (9-20) mg/dL Creatinine (0.66-1.25) mg/dL Glucose (74-99) mg/dL POC Glucose (mg/dL) 153 H (75-99) mg/dL Iron (65-175) ug/dL TIBC (228-460) ug/dL Ferritin (22.0-322.0) ng/mL Microbiology - Last 24 Hours (Table) 01/23/19 14:14 Blood Culture - Preliminary Blood No Growth after 48 hours Assessment and Plan Assessment: Impression: Acute exacerbation of chronic diastolic congestive heart failure. The patient also has moderate aortic stenosis, moderate mitral stenosis and moderate pulmonary hypertension with an RVSP of 57.21 mmHg History of GERD History of hypertension History of CHF History of hyperlipidemia Stage IV COPD,presently inactive history of myelodysplastic syndrome. History of urinary tract infection secondary to Enterococcus faecalis. Poor overall functional performance based on the above-mentioned multiple comorbidities. Recommendation: The patient was seen and evaluated by Dr. Terry. He is improved today as compared to yesterday. Diuresing well. Remains on bronchodilators and oral prednisone. Increase his activity as tolerated. We'll continue to follow. I, the cosigning physician, performed a history & physical examination of the patient. Lungs sounds with crackles in the bilateral posterior bases. Maintaining good O2 saturations in the 90s on 3 L/m per nasal cannula. I discussed the assessment and plan of care with my nurse practitioner, Fidelia Szymanski. I attest to the above note as dictated by her.
[2019-01-26] MEDS ORDERED: SODIUM CHLORIDE 0.65% NASAL SPRAY 44 ML BTL NASAL PRN (15:15)
[2019-01-26] MEDS: ALPRAZolam 0.25 MG TAB PO PRN (15:20)
[2019-01-26 17:11] LABS: Glucose,Whole Blood 326 mg/dL (75-99)
[2019-01-26 17:53] LABS: Hemoglobin A1C 6.6 % (4.0-6.0)
[2019-01-26 21:18] LABS: Glucose,Whole Blood 344 mg/dL (75-99)
[2019-01-26] MEDS: ATORVASTATIN 80 MG TAB PO SCH (21:33)
[2019-01-27] MEDS: INSULN ASP PRT/INSULIN ASPART 100 UNIT/ML 10 ML VIAL SQ SCH ×3 (06:42→17:18)
[2019-01-27] MEDS: INSULIN ASPART (NovoLOG) 100 UNIT/ML VIAL SQ SCH ×4 (06:42→20:59)
[2019-01-27 06:46] LABS: Glucose,Whole Blood 121 mg/dL (75-99)
[2019-01-27] MEDS: METOPROLOL TARTRATE 12.5 MG TAB PO SCH ×2 (07:59→21:00)
[2019-01-27] MEDS: FINASTERIDE 5 MG TAB PO SCH (07:59)
[2019-01-27] MEDS: MAGNESIUM OXIDE 400 MG TAB PO SCH (07:59)
[2019-01-27] MEDS: NIFEdipine XL 30 MG TAB.ER.24 PO SCH (07:59)
[2019-01-27] MEDS: predniSONE 20 MG TAB PO SCH (07:59)
[2019-01-27] MEDS: ENOXAPARIN 30 MG/0.3 ML SYRINGE SQ SCH (07:59)
[2019-01-27] MEDS: TAMSULOSIN 0.4 MG CAP.ER.24H PO SCH (07:59)
[2019-01-27] MEDS: ASPIRIN 81 MG PO SCH (07:59)
[2019-01-27] MEDS: POTASSIUM CHLORIDE ER 20 MEQ TAB.ER PO SCH ×2 (07:59→21:00)
[2019-01-27] MEDS: FUROSEMIDE 10 MG/ML 4 ML VIAL IV SCH ×2 (08:00→21:00)
[2019-01-27] MEDS: IPRATROPIUM-ALBUTEROL 3 ML NEB INHALATION SCH ×4 (08:30→20:11)
[2019-01-27 10:35] LABS: Anisocytosis Slight; HCT 24.2 % (39.0-53.0); HGB 7.6 gm/dL (13.0-17.5); Hypochromasia Moderate; MCH 31.4 pg (25.0-35.0); MCHC 31.2 g/dL (31.0-37.0); MCV 100.4 fL (80.0-100.0); Macrocytosis Moderate; Mean Platelet Volume 12.1; RBC 2.41 m/uL (4.30-5.90); RDW 19.7 % (11.5-15.5); WBC 5.4 k/uL (3.8-10.6)
[2019-01-27 10:36] LABS: Calcium 8.7 mg/dL (8.4-10.2); Potassium 4.3 mmol/L (3.5-5.1)
[2019-01-27] MEDS ORDERED: ALPRAZolam 0.25 MG TAB PO PRN (10:37)
[2019-01-27 11:42] LABS: Glucose,Whole Blood 342 mg/dL (75-99)
--- NOTE | 2019-01-27 11:52 | P.PN ---
Subjective Progress Note Date: 01/27/19 Principal diagnosis: Acute exacerbation of chronic diastolic congestive heart failure. this is a 78-year-old white male with history of multiple medical problems including chronic diastolic congestive heart failure, COPD, type 2 diabetes, chronic kidney disease stage IV, myeloproliferative disorder, chronic atrial fibrillation, GERD, chronic anemia, patient is very familiar to my service, and I see her mostly for his underlying COPD. Patient presented to the ER with a few days' history of increased shortness of breath. Worse upon walking. Occasional cough, no wheezing, no fever, no chills, no hemoptysis, and no chest pain. Patient also describes 2 pillows orthopnea, and paroxysmal nocturnal dyspnea. Chest x-ray upon admission showed evidence of interstitial edema consistent with congestive heart failure, patient was admitted, placed on diuretics, and today he feels much better compared to how he felt when he came in. His labs showednormal WBC count, and significantly elevated proBNP level.pro calcitonin level was also noted to be elevated however the patient had no clinical findings to suggest pneumonia. The patient is seen today 01/26/2019 in follow-up on the selective care unit. He is currently resting comfortably in bed. Awake and alert in no acute distress. He is breathing quite a bit better today as compared to yesterday. He is maintaining good O2 saturations in the 90s on 3 L/m per nasal cannula. He is afebrile. Hemodynamically stable. Blood culture reveals no growth to date. White count 5.7. Hemoglobin 7.6. Platelet count 82,000. BUN 89. Creatinine 3.76. He remains on Lasix 40 mg IV every 8 hours. He remains in a negative b alance. His weight is down 1.1 kg. The patient is seen today 01/27/2019 in follow-up on the selective care unit. He is awake and alert in no acute distress. Resting comfortably in bed. Breathing easier today compared to yesterday. Not quite back to his baseline. Including good O2 saturations in the 90s on 3 L/m per nasal cannula. She's afebrile. Hemodynamically stable. Blood culture reveals no growth. White count 5.4. Hemoglobin 7.6. Creatinine 3.80. BUN 101. Remains on Lasix 40 mg IV push twice a day. Objective - Vital Signs Vital signs: Vital Signs Temp 97.7 F 01/27/19 08:00 Pulse 84 01/27/19 11:39 Resp 18 01/27/19 08:00 BP 153/69 01/27/19 08:00 Pulse Ox 93 L 01/27/19 08:00 Intake & Output 01/26/19 01/27/19 01/27/19 18:59 06:59 18:59 Intake Total 480 240 Output Total 1400 1225 350 Balance -920 -1225 -110 Weight 77.7 kg Intake: Oral 480 240 Output: Urine 1400 1225 350 Other: Voiding Method Urinal Urinal Urinal # Voids 1 - Exam GENERAL EXAM: Alert, comfortable in no apparent distress. On 3 L nasal cannula. HEAD: Normocephalic. EYES: Normal reaction of pupils, equal size. NOSE: Clear with pink turbinates. THROAT: No erythema or exudates. NECK: No masses, no JVD. CHEST: No chest wall deformity. LUNGS: Equal air entry with faint crackles in the bilateral posterior bases. CVS: S1 and S2 normal with no audible murmur, regular rhythm. ABDOMEN: No hepatosplenomegaly, normal bowel sounds, no guarding or rigidity. SPINE: No scoliosis or deformity SKIN: No rashes CENTRAL NERVOUS SYSTEM: No focal deficits, tone is normal in all 4 extremities. EXTREMITIES: There is no peripheral edema. No clubbing, no cyanosis. Peripheral pulses are intact. - Labs CBC & Chem 7: 01/27/19 10:01 01/27/19 10:01 Labs: Abnormal Lab Results - Last 24 Hours (Table) 01/26/19 01/26/19 01/26/19 Range/Units 05:07 17:03 21:17 RBC (4.30-5.90) m/uL Hgb (13.0-17.5) gm/dL Hct (39.0-53.0) % MCV (80.0-100.0) fL RDW (11.5-15.5) % BUN (9-20) mg/dL Creatinine (0.66-1.25) mg/dL Glucose (74-99) mg/dL POC Glucose (mg/dL) 326 H 344 H (75-99) mg/dL Hemoglobin A1c 6.6 H (4.0-6.0) % 01/27/19 01/27/19 01/27/19 Range/Units 06:40 10:01 10:01 RBC 2.41 L (4.30-5.90) m/uL Hgb 7.6 L (13.0-17.5) gm/dL Hct 24.2 L (39.0-53.0) % MCV 100.4 H (80.0-100.0) fL RDW 19.7 H (11.5-15.5) % BUN 101 H* (9-20) mg/dL Creatinine 3.80 H (0.66-1.25) mg/dL Glucose 207 H (74-99) mg/dL POC Glucose (mg/dL) 121 H (75-99) mg/dL Hemoglobin A1c (4.0-6.0) % 01/27/19 Range/Units 11:41 RBC (4.30-5.90) m/uL Hgb (13.0-17.5) gm/dL Hct (39.0-53.0) % MCV (80.0-100.0) fL RDW (11.5-15.5) % BUN (9-20) mg/dL Creatinine (0.66-1.25) mg/dL Glucose (74-99) mg/dL POC Glucose (mg/dL) 342 H (75-99) mg/dL Hemoglobin A1c (4.0-6.0) % Microbiology - Last 24 Hours (Table) 01/23/19 14:14 Blood Culture - Preliminary Blood No Growth after 72 hours Assessment and Plan Assessment: Impression: Acute exacerbation of chronic diastolic congestive heart failure. The patient also has moderate aortic stenosis, moderate mitral stenosis and moderate pulmonary hypertension with an RVSP of 57.21 mmHg History of GERD History of hypertension History of CHF History of hyperlipidemia Stage IV COPD,presently inactive history of myelodysplastic syndrome. History of urinary tract infection secondary to Enterococcus faecalis. Poor overall functional performance based on the above-mentioned multiple com orbidities. Recommendation: The patient was seen and evaluated by Dr. Terry. Improved today but not quite back to his baseline. Plans for discharge in the morning. We'll continue to follow. I, the cosigning physician, performed a history & physical examination of the patient. Lungs sounds with crackles in the bilateral posterior bases. Maintaining good O2 saturations in the 90s on 3 L/m per nasal cannula. I discussed the assessment and plan of care with my nurse practitioner, Fidelia Szymanski. I attest to the above note as dictated by her.
[2019-01-27 11:58] LABS: Platelet Count 102 k/uL (150-450)
--- NOTE | 2019-01-27 15:05 | P.PN ---
Subjective Progress Note Date: 01/27/19 Rome Olguin is a 78 yo M with PMH of CAD, diastolic CHF, COPD, T2DM, CKD4, myeloproliferative disorder who presented to the ED complaining of progressive dyspnea. He notes this came on suddenly over the past few days and is worse with walking. Pt also notes it has been hard for him to sit up or eat as he has been getting dyspneic with that. He denies chest pain, palpitations or leg swelling. Pt notes baseline orthopnea and states he can only sleep with his head elevated on the L. No recent infections and no sick contacts at home. 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 He also states his kidney function has recently declined and has has been in the process of talking about dialysis but has not made decision whether to proceed yet. In the ED he was tachypneic and required 4 L O2 to maintain 90% saturation. CXR with basilar infiltrate and small kimmy effusions. Leukopenia, anemia and thrombocytopenia noted. Trop negative BNP >36841 and procalcitonin 0.5. 8/4. Pt is feeling better today and O2 requirement decreasing. Creatinine slightly increased today. His Echo demonstrated and pulmonary hypertension. He did walk the jones yesterday with some shortness of breath. 01/26/2019 oxygen weaned down to 3 L, maintaining O2 sats in the high 90s. Creatinine 3.76. Diuresing well on Lasix IV push with 24-hour I&O reflecting a negative fluid balance. Shortness of breath with exertion improving. Denies chest pain, palpitations. Denies lightheadedness, dizziness or focal deficits. 01/27/2019 Diuresing well on Lasix IV push with 24-hour I&O reflecting a negative fluid balance. Renal function worsening, BUN 101 ,Creatinine 3.8. breathing significantly improved, at baseline of 3 L nasal cannula, maintaining O2 sats in the 90s. Complains of mild anxiety, currently on prn Xanax sparingly. Blood sugars uncontrolled, on steroids. Hgb A1c 6.6. Afebrile, normal WBC, blood cultures reporting no growth. Objective - Vital Signs Vital signs: Vital Signs Temp 97.0 F L 01/27/19 04:00 Pulse 84 01/27/19 08:43 Resp 18 01/27/19 04:00 BP 138/57 01/27/19 04:00 Pulse Ox 94 L 01/27/19 04:00 Intake & Output 01/26/19 01/27/19 01/27/19 18:59 06:59 18:59 Intake Total 480 240 Output Total 1400 1225 Balance -920 -1225 240 Weight 77.7 kg Intake: Oral 480 240 Output: Urine 1400 1225 Other: Voiding Method Urinal Urinal - Exam Constitutional: well developed, NAD on 3 L NC CV: RRR, systolic murmur Lungs: normal respiratory effort, scattered rales Ext: no edema, no clubbing, no cyanosis. Neuro: oriented x3 - Labs CBC & Chem 7: 01/27/19 10:01 01/27/19 10:01 Labs: Abnormal Lab Results - Last 24 Hours (Table) 01/25/19 01/26/19 01/26/19 Range/Units 06:11 05:07 11:42 POC Glucose (mg/dL) 153 H (75-99) mg/dL Hemoglobin A1c 6.6 H (4.0-6.0) % Iron 29 L (65-175) ug/dL TIBC 178 L (228-460) ug/dL Ferritin 538.9 H (22.0-322.0) ng/mL 01/26/19 01/26/19 01/27/19 Range/Units 17:03 21:17 06:40 POC Glucose (mg/dL) 326 H 344 H 121 H (75-99) mg/dL Hemoglobin A1c (4.0-6.0) % Iron (65-175) ug/dL TIBC (228-460) ug/dL Ferritin (22.0-322.0) ng/mL Microbiology - Last 24 Hours (Table) 01/23/19 14:14 Blood Culture - Preliminary Blood No Growth after 72 hours Assessment and Plan Assessment: (1) Acute exacerbation of CHF (congestive heart failure), diastolic dysfunction Current Visit: Yes Status: Acute Code(s): I50.9 - HEART FAILURE, UNSPECIFIED SNOMED Code(s): 866783787 (2) Thrombocytopenia Current Visit: Yes Status: Acute Code(s): D69.6 - THROMBOCYTOPENIA, UNSPECIFIED SNOMED Code(s): 057454126 (3) Chronic leukopenia Current Visit: Yes Status: Acute Code(s): D72.819 - DECREASED WHITE BLOOD CELL COUNT, UNSPECIFIED SNOMED Code(s): 76156437 (4) Community acquired pneumonia Current Visit: Yes Status: Acute Code(s): J18.9 - PNEUMONIA, UNSPECIFIED ORGANISM SNOMED Code(s): 799543063 (5) Acute on chronic renal failure Current Visit: No Status: Acute Code(s): N17.9 - ACUTE KIDNEY FAILURE, UNSPECIFIED; N18.9 - CHRONIC KIDNEY DISEASE, UNSPECIFIED SNOMED Code(s): 170954989 (6) Acute pulmonary edema Current Visit: No Status: Acute Code(s): J81.0 - ACUTE PULMONARY EDEMA SNOMED Code(s): 87308028 (7) Aortic stenosis Current Visit: No Status: Acute Code(s): I35.0 - NONRHEUMATIC AORTIC (VALVE) STENOSIS SNOMED Code(s): 51172654 (8) Anemia in chronic kidney disease Current Visit: No Status: Chronic Priority: Medium Code(s): N18.9 - CHRONIC KIDNEY DISEASE, UNSPECIFIED; D63.1 - ANEMIA IN CHRONIC KIDNEY DISEASE SNOMED Code(s): 927829375 (9) Myelodysplastic syndrome Current Visit: No Status: Chronic Priority: Medium Code(s): D46.9 - MYELODYSPLASTIC SYNDROME, UNSPECIFIED SNOMED Code(s): 880531319 (10) Pulmonary hypertension Current Visit: Yes Status: Acute Code(s): I27.20 - PULMONARY HYPERTENSION, UNSPECIFIED SNOMED Code(s): 59893788 (11) diabetes mellitus type 2, hemoglobin A1c 6.6 (12) acute on chronic hypoxic respiratory failure secondary to all the above. Plan: Continue current medication regime , Lopressor, monitoring and symptomatic treatment. Maintain antibiotics, decrease Lasix to twice a day. Close monitoring of renal function, electrolytes with repeat labs ordered for a.m. Discharge planning in progress for tomorrow. Further recommendations to follow.
[2019-01-27 17:12] LABS: Glucose,Whole Blood 462 mg/dL (75-99)
[2019-01-27 20:07] VITALS: RESP 18
[2019-01-27 20:55] LABS: Glucose,Whole Blood 251 mg/dL (75-99)
[2019-01-27] MEDS: ATORVASTATIN 80 MG TAB PO SCH (21:00)
[2019-01-28 06:29] LABS: Glucose,Whole Blood 117 mg/dL (75-99)
[2019-01-28] MEDS: INSULIN ASPART (NovoLOG) 100 UNIT/ML VIAL SQ SCH ×2 (06:54→12:21)
[2019-01-28] MEDS: INSULN ASP PRT/INSULIN ASPART 100 UNIT/ML 10 ML VIAL SQ SCH (06:54)
[2019-01-28 07:03] LABS: Anisocytosis Slight; HCT 22.5 % (39.0-53.0); Hypochromasia Marked; MCH 30.9 pg (25.0-35.0); MCV 99.7 fL (80.0-100.0); Macrocytosis Moderate; Mean Platelet Volume 12.3; Platelet Count 94 k/uL (150-450); RBC 2.26 m/uL (4.30-5.90); RDW 19.3 % (11.5-15.5)
[2019-01-28 07:22] LABS: Calcium 8.5 mg/dL (8.4-10.2); Potassium 4.7 mmol/L (3.5-5.1)
[2019-01-28 07:25] LABS: Lymphocytes # (M) 2.22 k/uL (1.0-4.8); Monocytes # (M) 0.12 k/uL (0-1.0); Neutrophils % (M) 61 %; Nucleated Red Blood Cells 0 /100 WBC (0-0); Poikilocytosis (M) Present; Polychromasia Present; Total Cells Counted 100
[2019-01-28] MEDS: IPRATROPIUM-ALBUTEROL 3 ML NEB INHALATION SCH ×2 (08:16→11:20)
[2019-01-28] MEDS: NIFEdipine XL 30 MG TAB.ER.24 PO SCH (08:56)
[2019-01-28] MEDS: FINASTERIDE 5 MG TAB PO SCH (08:56)
[2019-01-28] MEDS: MAGNESIUM OXIDE 400 MG TAB PO SCH (08:56)
[2019-01-28] MEDS: ASPIRIN 81 MG PO SCH (08:56)
[2019-01-28] MEDS: TAMSULOSIN 0.4 MG CAP.ER.24H PO SCH (08:56)
[2019-01-28] MEDS: METOPROLOL TARTRATE 12.5 MG TAB PO SCH (08:56)
[2019-01-28] MEDS: FUROSEMIDE 10 MG/ML 4 ML VIAL IV SCH (08:57)
[2019-01-28] MEDS: ENOXAPARIN 30 MG/0.3 ML SYRINGE SQ SCH (08:57)
[2019-01-28] MEDS: POTASSIUM CHLORIDE ER 20 MEQ TAB.ER PO SCH (08:57)
[2019-01-28] MEDS ORDERED: predniSONE 10 MG TAB PO SCH (09:00)
--- NOTE | 2019-01-28 10:25 | P.DS ---
Providers Date of admission: 01/23/19 13:45 Expected date of discharge: 01/28/19 Attending physician: Primo Martinez MD Consults: 01/24/19 14:46 Consult Physician Routine Consulting Provider: Darcie Conner Consult Reason/Comments: COPD EXacerbation Do you want consulting provider notified?: Yes Primary care physician: [facility] Course: Final Diagnoses: (1) Acute on chronic exacerbation of CHF (congestive heart failure), diastolic dysfunction Current Visit: Yes Status: Acute Code(s): I50.9 - HEART FAILURE, UNSPECIFIED SNOMED Code(s): 445011162 (2) Thrombocytopenia Current Visit: Yes Status: Acute Code(s): D69.6 - THROMBOCYTOPENIA, UNSPECIFIED SNOMED Code(s): 490942126 (3) Chronic leukopenia Current Visit: Yes Status: Acute Code(s): D72.819 - DECREASED WHITE BLOOD CELL COUNT, UNSPECIFIED SNOMED Code(s): 76371100 (4) Community acquired pneumonia Current Visit: Yes Status: Acute Code(s): J18.9 - PNEUMONIA, UNSPECIFIED ORGANISM SNOMED Code(s): 200488063 (5) Acute on chronic renal failure Current Visit: No Status: Acute Code(s): N17.9 - ACUTE KIDNEY FAILURE, UNSPECIFIED; N18.9 - CHRONIC KIDNEY DISEASE, UNSPECIFIED SNOMED Code(s): 788168787 (6) Acute pulmonary edema Current Visit: No Status: Acute Code(s): J81.0 - ACUTE PULMONARY EDEMA SNOMED Code(s): 78749562 (7) Aortic stenosis, moderate Current Visit: No Status: Acute Code(s): I35.0 - NONRHEUMATIC AORTIC (VALVE) STENOSIS SNOMED Code(s): 02748851 (8) Anemia in chronic kidney disease Current Visit: No Status: Chronic Priority: Medium Code(s): N18.9 - CHRONIC KIDNEY DISEASE, UNSPECIFIED; D63.1 - ANEMIA IN CHRONIC KIDNEY DISEASE SNOMED Code(s): 402483034 (9) Myelodysplastic syndrome Current Visit: No Status: Chronic Priority: Medium Code(s): D46.9 - MYELODYSPLASTIC SYNDROME, UNSPECIFIED SNOMED Code(s): 769187769 (10) Pulmonary hypertension Current Visit: Yes Status: Acute Code(s): I27.20 - PULMONARY HYPERTENSION, UNSPECIFIED SNOMED Code(s): 09965200 (11) diabetes mellitus type 2, hemoglobin A1c 6.6 (12) acute on chronic hypoxic respiratory failure secondary to all the above. (13) moderate mitral stenosis Hospital course:Rome Olguin is a 78 yo M with PMH of CAD, diastolic CHF, COPD, T2DM, CKD4, myeloproliferative disorder who presented to the ED complaining of progressive dyspnea. He notes this came on suddenly over the past few days and is worse with walking. Pt also notes it has been hard for him to sit up or eat as he has been getting dyspneic with that. He denies chest pain, palpitations or leg swelling. Pt notes baseline orthopnea and states he can only sleep with his head elevated on the L. No recent infections and no sick contacts at home. Pt was previously taking 20 mg lasix daily but his Tele Rn recent increased this to 40 mg daily. He also states his kidney function has recently declined and has has been in the process of talking about dialysis but has not made decision whether to proceed yet. In the ED he was tachypneic and required 4 L O2 to maintain 90% saturation. CXR with basilar infiltrate and small kimmy effusions. Leukopenia, anemia and thrombocytopenia noted. Trop negative BNP >21832 and procalcitonin 0.5. /. Pt is feeling better today and O2 requirement decreasing. Creatinine slightly increased today. His Echo demonstrated and pulmonary hypertension. He did walk the jones yesterday with some shortness of breath. 01/26/2019 oxygen weaned down to 3 L, maintaining O2 sats in the high 90s. Creatinine 3.76. Diuresing well on Lasix IV push with 24-hour I&O reflecting a negative fluid balance. Shortness of breath with exertion improving. Denies chest pain, palpitations. Denies lightheadedness, dizziness or focal deficits. 01/27/2019 Diuresing well on Lasix IV push with 24-hour I&O reflecting a negative fluid balance. Renal function worsening, BUN 101 ,Creatinine 3.8. breathing significantly improved, at baseline of 3 L nasal cannula, maintaining O2 sats in the 90s. Complains of mild anxiety, currently on prn Xanax sparingly. Blood sugars uncontrolled, on steroids. Hgb A1c 6.6. Afebrile, normal WBC, blood cultures reporting no growth. Significant clinical improvement. Completed antibiotic therapy. Patient at baseline O2. Cleared by pulmonary for discharge. Patient is being discharged home in a stable condition with guarded prognosis. - Exam Constitutional: well developed, NAD on 3 L NC CV: RRR, systolic murmur Lungs: normal respiratory effort, occasional scattered rhonchi Ext: no edema, no clubbing, no cyanosis. Neuro: oriented x3 The impression and plan of care has been dictated as directed. : I performed a history and examination of this patient, discussed the same with the dictator. I agree with the dictator's note ,documented as a scribe. Any additional findings or plans will be noted. Time taken: 35 minutes Patient Condition at Discharge: Stable Plan - Discharge Summary Discharge Rx Participant: No New Discharge Prescriptions: New Docusate [Colace] 100 mg PO BID PRN cap PRN Reason: Constipation Sodium Chloride 0.65% Nasal [Deep Sea (Saline)] 2 spray NASAL QID PRN spray PRN Reason: Congestion guaiFENesin [Mucinex] 1,200 mg PO Q12HR #1 tablet.er predniSONE 10 mg PO DIRECTED #18 tab Continue Omeprazole 20 mg PO DAILY Tamsulosin [Flomax] 0.4 mg PO DAILY Atorvastatin [Lipitor] 80 mg PO HS Magnesium Oxide 800 mg PO DAILY ALPRAZolam [Xanax] 0.25 mg PO TID PRN PRN Reason: Anxiety Insulin Aspart Protam & Aspart [NovoLOG MIX 70-30 Flexpen] 10 unit SQ AC-BID #1 pen NIFEdipine XL [Procardia XL] 30 mg PO DAILY tab.er.24 Potassium Chloride [Klor-Con 20] 20 meq PO BID Furosemide [Lasix] 40 mg PO DAILY Metoprolol Tartrate [Lopressor] 12.5 mg PO BID #60 dose Acetaminophen Tab [Tylenol] 650 mg PO Q6HR PRN tab PRN Reason: Mild Pain Or Fever > 100.5 Aspirin 81 mg PO DAILY #0 chew Darbepoetin Hans [Aranesp] 60 mcg SQ Q7D syringe Ipratropium-Albuterol Nebulize [Duoneb 0.5 mg-3 mg/3 ml Soln] 3 ml INHALATION RT-QID ampul.neb Finasteride [Proscar] 5 mg PO DAILY Discharge Medication List ALPRAZolam [Xanax] 0.25 mg PO TID PRN 02/07/18 [History] Atorvastatin [Lipitor] 80 mg PO HS 02/07/18 [History] Magnesium Oxide 800 mg PO DAILY 02/07/18 [History] Omeprazole 20 mg PO DAILY 02/07/18 [History] Tamsulosin [Flomax] 0.4 mg PO DAILY 02/07/18 [History] Insulin Aspart Protam & Aspart [NovoLOG MIX 70-30 Flexpen] 10 unit SQ AC-BID #1 pen 02/11/18 [Rx] NIFEdipine XL [Procardia XL] 30 mg PO DAILY tab.er.24 02/21/18 [Rx] Furosemide [Lasix] 40 mg PO DAILY 05/11/18 [History] Potassium Chloride [Klor-Con 20] 20 meq PO BID 05/11/18 [History] Acetaminophen Tab [Tylenol] 650 mg PO Q6HR PRN tab 05/21/18 [Rx] Aspirin 81 mg PO DAILY #0 chew 05/21/18 [Rx] Darbepoetin Hans [Aranesp] 60 mcg SQ Q7D syringe 05/21/18 [Rx] Ipratropium-Albuterol Nebulize [Duoneb 0.5 mg-3 mg/3 ml Soln] 3 ml INHALATION RT-QID ampul.neb 05/21/18 [Rx] Metoprolol Tartrate [Lopressor] 12.5 mg PO BID #60 dose 05/21/18 [Rx] Finasteride [Proscar] 5 mg PO DAILY 01/23/19 [History] Docusate [Colace] 100 mg PO BID PRN cap 01/28/19 [Rx] Sodium Chloride 0.65% Nasal [Deep Sea (Saline)] 2 spray NASAL QID PRN spray 01/28/19 [Rx] guaiFENesin [Mucinex] 1,200 mg PO Q12HR #1 tablet.er 01/28/19 [Rx] predniSONE 10 mg PO DIRECTED #18 tab 01/28/19 [Rx] Follow up Appointment(s)/Referral(s): Darcie Conner MD [STAFF PHYSICIAN] - 02/20/19 11:00 am (Saturday) Patsy Teague DO [Primary Care Provider] - 02/03/19 2:00 pm (Saturday) Ambulatory/Diagnostic Orders: Complete Blood Count w/diff [LAB.AMB] Time Frame: 3 Days, Location: None Selected Patient Instructions/Handouts: Heart Failure (DC), Heart Healthy Diet (DC) Activity/Diet/Wound Care/Special Instructions: completed antibx therapy. Weigh daily Q am, maintain log If > 3 lbs weight gain, take an additional lasix at noon If >5-6 lbs weight gain, call clinic DIet: COnsist. Carb, "CHF Diet"
[2019-01-28 10:56] VITALS: BP 135/62; TEMP 98.3
--- NOTE | 2019-01-28 11:00 | P.PN ---
Subjective Progress Note Date: 01/28/19 Principal diagnosis: Acute exacerbation of chronic diastolic congestive heart failure. this is a 78-year-old white male with history of multiple medical problems including chronic diastolic congestive heart failure, COPD, type 2 diabetes, chronic kidney disease stage IV, myeloproliferative disorder, chronic atrial fibrillation, GERD, chronic anemia, patient is very familiar to my service, and I see her mostly for his underlying COPD. Patient presented to the ER with a few days' history of increased shortness of breath. Worse upon walking. Occasional cough, no wheezing, no fever, no chills, no hemoptysis, and no chest pain. Patient also describes 2 pillows orthopnea, and paroxysmal nocturnal dyspnea. Chest x-ray upon admission showed evidence of interstitial edema consistent with congestive heart failure, patient was admitted, placed on diuretics, and today he feels much better compared to how he felt when he came in. His labs showednormal WBC count, and significantly elevated proBNP level.pro calcitonin level was also noted to be elevated however the patient had no clinical findings to suggest pneumonia. The patient is seen today 01/26/2019 in follow-up on the selective care unit. He is currently resting comfortably in bed. Awake and alert in no acute distress. He is breathing quite a bit better today as compared to yesterday. He is maintaining good O2 saturations in the 90s on 3 L/m per nasal cannula. He is afebrile. Hemodynamically stable. Blood culture reveals no growth to date. White count 5.7. Hemoglobin 7.6. Platelet count 82,000. BUN 89. Creatinine 3.76. He remains on Lasix 40 mg IV every 8 hours. He remains in a negative b alance. His weight is down 1.1 kg. The patient is seen today 01/27/2019 in follow-up on the selective care unit. He is awake and alert in no acute distress. Resting comfortably in bed. Breathing easier today compared to yesterday. Not quite back to his baseline. Including good O2 saturations in the 90s on 3 L/m per nasal cannula. She's afebrile. Hemodynamically stable. Blood culture reveals no growth. White count 5.4. Hemoglobin 7.6. Creatinine 3.80. BUN 101. Remains on Lasix 40 mg IV push twice a day. Patient seen today 01/28/2018 in follow-up on the selective care unit. He is awake and alert in no acute distress. Resting comfortably in bed. He is back to his baseline as far as his breathing is concerned. Does have home oxygen. He is up to 100% on 3 L/m per nasal cannula. He is afebrile. Hemodynamically stable. Blood culture reveals no growth. White count 6.0. Hemoglobin 7.0. Creatinine 3.45. Currently on IV diuretics. Objective - Vital Signs Vital signs: Vital Signs Temp 98.3 F 01/28/19 08:00 Pulse 90 01/28/19 08:26 Resp 18 01/28/19 08:26 BP 135/62 01/28/19 08:00 Pulse Ox 98 01/28/19 08:16 Intake & Output 01/27/19 01/28/19 01/28/19 18:59 06:59 18:59 Intake Total 716 240 Output Total 1100 1100 Balance -384 -1100 240 Weight 77.6 kg Intake: Oral 716 240 Output: Urine 1100 1100 Other: Voiding Method Urinal Urinal Urinal # Voids 1 1 # Bowel Movements 1 - Exam GENERAL EXAM: Alert, pleasant 78-year-old gentleman, comfortable in no apparent distress. On 3 L nasal cannula. HEAD: Normocephalic. EYES: Normal reaction of pupils, equal size. NOSE: Clear with pink turbinates. THROAT: No erythema or exudates. NECK: No masses, no JVD. CHEST: No chest wall deformity. LUNGS: Equal air entry with faint crackles in the bilateral posterior bases. CVS: S1 and S2 normal with no audible murmur, regular rhythm. ABDOMEN: No hepatosplenomegaly, normal bowel sounds, no guarding or rigidity. SPINE: No scoliosis or deformity SKIN: No rashes CENTRAL NERVOUS SYSTEM: No focal deficits, tone is normal in all 4 extremities. EXTREMITIES: There is no peripheral edema. No clubbing, no cyanosis. Peripheral pulses are intact. - Labs CBC & Chem 7: 01/28/19 06:37 01/28/19 06:37 Labs: Abnormal Lab Results - Last 24 Hours (Table) 01/27/19 01/27/19 01/27/19 Range/Units 10:01 11:41 17:09 RBC (4.30-5.90) m/uL Hgb (13.0-17.5) gm/dL Hct (39.0-53.0) % RDW (11.5-15.5) % Plt Count 102 L (150-450) k/uL BUN (9-20) mg/dL Creatinine (0.66-1.25) mg/dL Glucose (74-99) mg/dL POC Glucose (mg/dL) 342 H 462 H (75-99) mg/dL 01/27/19 01/28/19 01/28/19 Range/Units 20:54 06:28 06:37 RBC 2.26 L (4.30-5.90) m/uL Hgb 7.0 L (13.0-17.5) gm/dL Hct 22.5 L (39.0-53.0) % RDW 19.3 H (11.5-15.5) % Plt Count 94 L (150-450) k/uL BUN (9-20) mg/dL Creatinine (0.66-1.25) mg/dL Glucose (74-99) mg/dL POC Glucose (mg/dL) 251 H 117 H (75-99) mg/dL 01/28/19 Range/Units 06:37 RBC (4.30-5.90) m/uL Hgb (13.0-17.5) gm/dL Hct (39.0-53.0) % RDW (11.5-15.5) % Plt Count (150-450) k/uL BUN 110 H* (9-20) mg/dL Creatinine 3.45 H (0.66-1.25) mg/dL Glucose 108 H (74-99) mg/dL POC Glucose (mg/dL) (75-99) mg/dL Microbiology - Last 24 Hours (Table) 01/23/19 14:14 Blood Culture - Preliminary Blood No Growth after 96 hours Assessment and Plan Assessment: Impression: Acute exacerbation of chronic diastolic congestive heart failure. The patient also has moderate aortic stenosis, moderate mitral stenosis and moderate pulmonary hypertension with an RVSP of 57.21 mmHg History of GERD History of hypertension History of CHF History of hyperlipidemia Stage IV COPD,presently inactive history of myelodysplastic syndrome. History of urinary tract infection secondary to Enterococcus faecalis. Poor overall functional performance based on the above-mentioned multiple c omorbidities. Recommendation: The patient was seen and evaluated by Dr. Terry. He is cleared for discharge from the pulmonary standpoint. He'll keep his scheduled appointment with Dr. Conner. He is encouraged to call sooner with any recurrence of symptoms or other questions or concerns. I, the cosigning physician, performed a history & physical examination of the patient. Lungs sounds with crackles in the bilateral posterior bases. Maintaining good O2 saturations in the 90s on 3 L/m per nasal cannula. I discussed the assessment and plan of care with my nurse practitioner, Fidelia Szymanski. I attest to the above note as dictated by her.
[2019-01-28 11:35] VITALS: PULSE 85
[2019-01-28 11:49] LABS: Glucose,Whole Blood 244 mg/dL (75-99)
[2019-01-29] MEDS ORDERED: DARBEPOETIN ALFA 60 MCG/0.3 ML SYRINGE SQ SCH (09:00)
== END 2019-01-28 14:40 | disposition home or self-care (01) | DRG 291 ==
LOC: EC 11:46 → 3SCARD 13:45
PROVIDERS: ADMIT Family Medicine; ATTEND Family Medicine
DX: I13.0 Hypertensive heart and chronic kidney disease with heart failure and stage 1 through stage 4 chronic kidney disease, or unspecified chronic kidney disease (principal); I50.33 Acute on chronic diastolic (congestive) heart failure; J18.9 Pneumonia, unspecified organism; J96.21 Acute and chronic respiratory failure with hypoxia; J44.0 Chronic obstructive pulmonary disease with (acute) lower respiratory infection; N17.9 Acute kidney failure, unspecified; N18.4 Chronic kidney disease, stage 4 (severe); I25.5 Ischemic cardiomyopathy; I27.20 Pulmonary hypertension, unspecified; I48.2 Chronic atrial fibrillation; K21.9 Gastro-esophageal reflux disease without esophagitis; N40.1 Benign prostatic hyperplasia with lower urinary tract symptoms; Z79.82 Long term (current) use of aspirin; Z79.899 Other long term (current) drug therapy; Z86.79 Personal history of other diseases of the circulatory system; Z87.01 Personal history of pneumonia (recurrent); Z79.4 Long term (current) use of insulin; Z87.440 Personal history of urinary (tract) infections; Z87.891 Personal history of nicotine dependence; I25.2 Old myocardial infarction; I25.10 Atherosclerotic heart disease of native coronary artery without angina pectoris; I08.0 Rheumatic disorders of both mitral and aortic valves; D46.9 Myelodysplastic syndrome, unspecified; D63.1 Anemia in chronic kidney disease; D69.6 Thrombocytopenia, unspecified; E11.22 Type 2 diabetes mellitus with diabetic chronic kidney disease; E11.51 Type 2 diabetes mellitus with diabetic peripheral angiopathy without gangrene; E78.5 Hyperlipidemia, unspecified; F41.9 Anxiety disorder, unspecified; Z95.5 Presence of coronary angioplasty implant and graft; Z99.81 Dependence on supplemental oxygen; M16.0 Bilateral primary osteoarthritis of hip; Z89.422 Acquired absence of other left toe(s); Z82.3 Family history of stroke; Z60.2 Problems related to living alone
CPT/HCPCS: 36415; 71046; 80048; 80053; 82728; 83036; 83540; 83550; 83735; 83880; 84145; 84484; 85025; 85027; 85610; 85730; 87040; 93005; 93306; 94640; 94644; 94760; 96365; 96366; 96368; 96375; 99285